=== PATIENT | female | born 1995 | race Caucasian/White ===

== ENCOUNTER 2020-01-23 19:38 | Emergency (ER) | payer OTHER, SELFPAY ==
[2019-03-30 17:04] VITALS: BMI 26.2
[2020-01-23 19:40] VITALS: BP 132/87; PULSE 80; RESP 16; RESP 17; TEMP 36.1; O2SAT 99; BMI 27.8
--- NOTE | 2020-01-23 20:09 | RAD_ITS ---
STUDY: X-RAY - LEFT FOOT CLINICAL: Female, 24 years old. INJURY WHILE WORKING OUT, PAIN AND SWELLING LATERAL ANKLE TECHNIQUE: 3 view(s) of the foot. COMPARISON: Ankle same day. FINDINGS: There is soft tissue edema lateral to the fibula. There is a well-corticated 1 mm bony density medial to the distal first metatarsal. There is flattening, sclerosis of the distal aspect of the second metatarsal. There are benign bone islands distal fourth and fifth metatarsal. 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
--- NOTE | 2020-01-23 20:15 | RAD_ITS ---
STUDY: X-RAY - LEFT ANKLE REASON FOR EXAM: Female, 24 years old. INJURY WHILE WORKING OUT, PAIN AND SWELLING LATERAL ANKLE TECHNIQUE: 3 view(s) of the ankle. COMPARISON: 04/29/2013. FINDINGS: Normal visualized distal tibia and fibula. Normal medial and lateral malleoli. Normal tibiotalar articulation and ankle mortise. Normal visualized talus and calcaneus. The visualized subtalar, talonavicular, calcaneocuboid and tarsal articulations are normal. There is significant soft tissue edema lateral to the fibula. The bone mineralization is preserved. There are no acute fractures. RAD/Ankle min 3 Views IMPRESSION: Significant soft tissue edema lateral to the fibula, no acute fractures Electronically Signed: Johann Hyman, at 20:30 EDT Tel , Service support ,
[2020-01-23] MEDS: Ibuprofen 600 MG Tablet PO (20:16)
--- NOTE | 2020-01-23 21:19 | ED.DCSUM_ITS ---
History of Present Illness Chief Complaint: Lower Extremity Injury Informant: Patient Occurred: Today Mechanism/Context: Trip Onset: Today Context: Sudden Onset Timing: Continuous Quality of Pain: Aching Associated Symptoms: Negative for: Parasthesia, Weakness, Loss of Funtion Narrative: Patient is a 24-year-old female with no significant past medical history presenting with left ankle injury. Patient was doing a home workout and when she went to grab something she actually tripped over a box and inverted her ankl e. She immediately had pain and swelling over the lateral aspect of her ankle. She did not try to walk on it. She came to the emergency room for further evaluation. She not take anything for pain prior to arrival. She denies any associated numbness or tingling. She denies any fall or head injury. She denies any other complaints at this time. Past Medical History - Allergies and Home Meds Allergies/Adverse Reactions: Allergies Penicillins [PCN] Allergy (Verified 01/23/20 19:38) Hives Primary Care Physician: Adrian Downing DO [Primary Care Provider] - Past Medical History: None Surgical History: noncontributory Smoking Status: Never smoker Review of Systems General: Denies: Chills, Fever, Sweats Eyes: Denies: Visual changes - bilaterally, Diplopia ENT: Denies: Rhinorrhea, Sore throat Cardiovascular: Denies: Chest pain, Palpitations Respiratory: Denies: Dyspnea, Cough, Dyspnea on exertion Gastrointestinal: Denies: Abdominal pain, Nausea, Vomiting, Diarrhea, Melena, Hematochezia Genitourinary: Denies: Dysuria, Hematuria, Frequency Musculoskeletal: Reports: Swelling - Left ankle, Extremity Pain - Left ankle. Denies: Back pain Skin: Denies: Rash, Wounds Neurological: Denies: Headache, Weakness, Numbness Physical Exam Vital Signs/Narrative: Vital Signs Temp Pulse Resp BP Pulse Ox 01/23/20 19:40 97.0 F L 80 16 132/87 H 99 Inital Vital Signs reviewed: Yes - Extremity Exam Left Femur: Negative for: Deformity, Edema, Limited ROM Left Knee: Negative for: Deformity, Edema, Limited ROM Left Tib Fib: - - No fibular head tenderness. Negative for: Deformity, Edema, Hematoma, Limited ROM Left Ankle: Edema, Limited ROM - Secondary to pain, - - Soft tissue swelling over the lateral malleolus with associated tenderness. No pinpoint bony tenderness bilaterally. No obvious deformity. Normal Jorge test. Negative for: Deformity, Hematoma Left Foot: - - No tenderness to palpation at the base of the fifth metatarsal. Negative for: Deformity, Edema, Limited ROM General: Well nourished, Well developed Head: Normocephalic, Atraumatic Eyes: Perrl, EOMI ENT: No Trauma, Moist Mucous Membranes Neck: Nontender, Full ROM Cardiovascular: Regular rate, Regular rhythm, No murmurs Respiratory: No distress, CTA bilaterally, Chest nontender Abdomen: Soft, Nontender, Nondistended, Normal bowel sounds Back: Nontender Skin: Normal color, No rash Neurological: Alert, Oriented x3, Cranial nerves II-XII grossly intact, Normal Strength, Normal Sensation Psychological: Normal affect Diagnostic/Tx/Re-eval Clinical Impression(s) from Imaging Studies Foot X-Ray 01/23/20 20:09 IMPRESSION: Soft tissue edema lateral to the fibula 1 mm bony density medial to the distal first metatarsal likely old trauma Flattening and sclerosis distal aspect of the second metatarsal, this is chronic and 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 She is associated soft tissue swelling. X-ray shows soft tissue swelling but no acute bony abnormality. There are some bony abnormalities noted on the medial aspect of the foot. Patient is not have any associated tenderness or known injury there. Patient is placed in an air splint. She is given Motrin for pain control. She is counseled to follow-up with her primary care doctor. She is weightbearing as tolerated. She is counseled on rice therapy. Patient is counseled on signs and symptoms requiring return to the emergency room. Patient verbalizes agreement and understand this plan. Patient discharged home in stable and improved condition. ED Disposition - Plan for ED Patient: Disposition: Home or Assisted Living Diagnosis: Left ankle sprain Instructions: ED Sprain Ankle Prescriptions: Ibuprofen [Motrin] 600 mg PO Q6H PRN PRN #20 tab PRN Reason: Pain/Inflammation Prescription Printed Referrals: Adrian Downing DO [Primary Care Provider] -
[2020-01-23 21:28] VITALS: PULSE 80; RESP 16; O2SAT 98
== END 2020-01-23 21:43 | disposition home or self-care (01) ==
PROVIDERS: Emergency Provider Emergency Medicine; PCP Student in an Organized Health Care Education/Training Program
DX: S93.402A Sprain of unspecified ligament of left ankle, initial encounter (principal); W22.8XXA Striking against or struck by other objects, initial encounter; Y93.A9 Activity, other involving cardiorespiratory exercise; Y92.009 Unspecified place in unspecified non-institutional (private) residence as the place of occurrence of the external cause; Y99.9 Unspecified external cause status; Z88.0 Allergy status to penicillin
CPT/HCPCS: 73610; 73630; 99283

== ENCOUNTER 2025-05-05 07:46 | Inpatient (IN) | payer BC, SELFPAY ==
[2025-05-05] VITALS (27 sets, daily range): BP systolic 121–139; BP diastolic 61–91; PULSE 86–110; RESP 16–18; TEMP 36.4–36.7; O2SAT 93–100; BMI 45.9
--- OUTSIDE RECORDS SUMMARY | 2025-05-05 07:13 | XMS RPT_ITS | CCD ---
Author Organization [facility] Inform ion Partnership [facility] Care Team Providers Care Audio/Video Engineer Name Role Phone Adrian Downing DO Primary Care Provider WIL GARNETT JR. Attending Unav ailable ADRIAN DOWNING Primary Care Unavailable Adrian Downing DO Primary Care Provider Donato DATAWAREHOUSE DEVELOPER.Janneth HENDERSON Unavailable Isabell DATAWAREHOUSE DEVELOPER.Ashleigh HENDERSON Unavailable Donato DATAWAREHOUSE DEVELOPER.REIMBURSEMENT DIRECTORJanneth Unavailable Ady DATAWAREHOUSE DEVELOPER.Keyla HENDERSON Unavailable ADRIAN DOWNING Primary Care Unavailable SUE ARECHIGA Attending Unavailable ADRIAN DOWNING Primary Care Unavailable BRITNEY VERGARA Attending Unavailable LEELEE, ADRIAN De Los Santos Primary Care Unavailable JASON, JEFF Referring Unavailable DOWNING, ADRIAN L Primary Care Unavailable JASON, JEFF Referring Unavailable GINA MUÑIZ Attending Unavailable DOWNING, ADRIAN Magali Primary Care Unavailable HAURY, JEFF Referring Unavailable GARETH SALEHA Attending Unavailable DOWNING, ADRIAN L Primary Care Unavailable WIL, KARMON Referring Unavailable DOWNING, ADRIAN L Primary Care Unavailable WIL, KARMON Referring Unavailable MARIANNA DE LA TORRE Attending Unavailable DOWNING, ADRIAN Magali Primary Care Unavailable WIL, KARMON Referring Unavailable DOWNING, ADRIAN L Primary Care Unavailable WIL, KARMON Referring Unavailable SUSAN, CLAUDE Attending Unavailable DOWNING, ADRIAN L Primary Care Unavailable WIL, KARMON Attending Unavailable DOWNING, ADRIAN L Primary Care Unavailable ADYKEYLA Attending Unavailable LEELEE, ADRIAN L Primary Care Unavailable GINA MUÑIZ Attending Unavailable LEELEE, ADRIAN L Primary Care Unavailable MICHEL MUÑIZNEY Referring Unavailable DOWNING, ADRIAN L Primary Care Unavailable GINA MUÑIZ Attending Unavailable DOWNINGADRIAN L Primary Care Unavailable JASON, JEFF Attending Unavailable DOWNING, ADRIAN L Primary Care Unavailable HAURY, JEFF Referring Unavailable DOWNING, ADRIAN L Primary Care Unavailable HAURY, JEFF Referring Unavailable GINA MUÑIZ Attending Unavailable DOWNING, ADRIAN L Primary Care Unavailable HACAYLA, JEFF Referring Unavailable DOWNING, ADRIAN L Primary Care Unavailable DOWNINGADRIAN Attending Unavailable DOWNING, ADRIAN L Primary Care Unavailable MARIANNA DE LA TORRE Attending Unavailable DOWNING, ADRIAN Magali Primary Care Unavailable SELF Referring Unavailable HAURY, JEFF Attending Unavailable DONWING, ADRIAN L Primary Care Unavailable HAURY, JEFF Referring Unavailable DOWNING, ADRIAN L Primary Care Unavailable MARIANNA DE LA TORRE Referring Unavailable DOWNING, ADRIAN De Los Santos Primary Care Unavailable MARIANNA DE LA TORRE Referring Unavailable BRITNEY VERGARA Attending Unavailable DOWNING, ADRIAN De Los Santos Primary Care Unavailable ADY KEYLA TORSTEN Referring Unavailable DOWNING, ADRIAN L Primary Care Unavailable GINA MUÑIZ Attending Unavailable DOWNING, ADRIAN L Primary Care Unavailable POOL SCHULTZ Referring Unavailable Allergies Allergy Classification Reported Allergen(s) Allergy Type Date of Onset Reaction(s) Facility (20 sources) Amoxicillin; Translations: [AMOXICILLIN] Drug Allergy 11-14-2006 [facility] Work Phone: (1 source) Penicillin; Translations: [PENICILLIN G] Drug Allergy 03-03-2022 [facility] (10 sources) Penicillins; Translations: [PENICILLINS] Drug Allergy 03-03-2022 [facility] (19 sources) Penicillins Drug Allergy 03-03-2022 [facility] Medications Current Medications Medication Drug Class(es) Dates Sig (Normalized) Sig (Original) acyclovir 800 mg oral tablet (20 sources) Herpesvirus Nucleoside Analog DNA Polymerase Inhibitor, Herpes Simplex Virus Nucleoside Analog DNA Polymerase Inhibitor, Herpes Zoster Virus Nucleoside Analog DNA Polymerase Inhibitor Start: 07-15-2024 take 1 tablet by mouth three times daily acyclovir (ZOVIRAX) 800 mg tablet Indications: Recurrent cold sores Take 1 tablet by mouth three times a day. Take at first signs of cold sore outbreak x 5-7 days. 30 tablet 2 07/15/2024 Active Start: 06-08-2024 End: 06-13-2024 take 1 tablet by mouth twice daily acyclovir (ZOVIRAX) 800 mg tablet Indications: Recurrent cold sores Take 1 tablet by mouth two times a day for 5 days. 10 tablet 3 06/08/2024 06/13/2024 Active Start: 09-02-2021 End: 06-08-2024 take 1 tablet by mouth three times daily acyclovir (ZOVIRAX) 800 mg tablet Indications: Recurrent cold sores Take 1 tablet by mouth three times daily. Take at first signs of cold sore outbreak x 5-7 days. 30 tablet 05/06/2023 06/08/2024 Discontinued Comment on above: Take 1 tablet by rodriguez th three times daily. Take at first signs of cold sore outbreak x 5-7 days. aspirin 81 mg delayed release oral tablet (20 sources) Platelet Aggregation Inhibitor, Nonsteroidal Anti-inflammatory Drug Start: 09-22-20 24 take 1 tablet by mouth once daily for obesity aspirin, enteric coated (ECOTRIN LOW STRENGTH) 81 mg EC tablet Indications: Encounter for supervision of high risk in first trimester, antepartum (HCC) , with uncertain dates in first trimester (HCC) , Obesity affecting in first trimester, unspecified obesity type (HCC) Take 1 tablet by mouth once daily. 90 tablet 3 09/22/2024 Active ondansetron 4 mg disintegrating oral tablet (20 sources) Serotonin-3 Receptor Antagonist Start: 09-06-20 take 1 tablet by mouth every eight hours as needed for nausea ondansetron orally disintegrating (ZOFRAN ODT) 4 mg disintegrating tablet Indications: Less than 8 weeks gestation of (HCC) Take 1 tablet by mouth every 8 hours as needed for nausea/vomiting. 20 tablet 1 09/06/2024 Active PNV no.95/ferrous fum/folic ac ( ORAL) (20 sources) PNV no.95/ferrou s fum/folic ac ( ORAL) Take by mouth. Active Completed/Discontinued Medications Medication Drug Class(es) Dates Sig (Normalized) Sig (Original) azithromycin 250 mg oral tablet (2 sources) Macrolide Antimicrobial Start: 03-27-2025 End: 04-04-2025 azithromycin (ZITHROMAX Z-JOSH) 250 mg tablet 2 tablets by mouth first day then 1 tablet the next 4 days 6 tablet 03/27/2025 04/04/2025 Discontinued dicyclomine hydrochloride 10 mg oral capsule (6 sources) Anticholinergic Start: 11-07-2020 take 1 capsule by mouth at bedtime dicyclomine (BENTYL) 10 mg capsule Take 1 capsule by mouth before meals and at bedtime. 60 capsule 5 11/07/2020 Active Comment on above: Take 1 capsule by mo ut before meals and at bedtime. 21 day ethinyl estradiol 0.039453 mg/hr / etonogestrel 0.005 mg/hr vaginal system (8 sources) Progestin, Estrogen Start: 12-27-2021 End: 05-06-2023 Etonogestrel-Ethi nyl Estradiol (NUVARING) 0.12-0.015 mg/24 hr vaginal ring Use 1 Each vaginally as directed. 1 Each 2 05/06/2023 Active Comment on above: Use 1 Each vaginally as directed. Use 1 Each vaginally as directed. INSERT ONE(1) RING VAGINALLY AND LEAVE IN PLACE FOR THREE WEEKS, THEN REMOVE FOR 1 WEEK. Ethinyl Estradiol / Ferrous fumarate / Norethindrone (11 sources) Estrogen Start: 11-19-2023 End: 09-22-2024 take 1 tablet by mouth once daily Norethindrn A-E Estradiol-Iron (SHANTE 24 FE) 1 mg-20 mcg (24)/75 mg (4) Take 1 tablet by mouth once daily. 90 tablet 3 11/19/2023 09/22/2024 Discontinued Start: 11-19-2023 take 1 tablet by rodriguez th once daily Norethindrn A-E Estradiol-Iron (SHANTE 24 FE) 1 mg-20 mcg (24)/75 mg (4) Take 1 tablet by mouth once daily. 90 tablet 3 11/19/2023 Active Comment on above: Take 1 tablet by rodriguez th once daily. Ethinyl Estradiol / norgestimate (1 source) Progestin, Estrogen Start: 1 End: 2 take 1 tablet by mouth once daily norgestimate 0.25 mg-ethinyl estradiol 35 mcg (SPRINTEC) 0.25-35 mg-mcg per tablet Indications: Excessive and frequent menstruation with irregular cycle Take 1 tablet by mouth once daily. Active pills only. Skip placebo week. New pack every 3 weeks. 112 tablet 0 10/01/2021 12/27/2021 Discontinued Comment on above: Take 1 tablet by rodriguez th once daily. Active pills only. Skip placebo week. New pack every 3 weeks. lansoprazole 30 mg delayed release oral capsule (5 sources) Proton Pump Inhibitor Start: 2 take 1 capsule by mouth once daily before breakfast lansoprazole (PREVACID) 30 mg capsule Indications: Epigastric abdominal pain Take 1 capsule by mouth daily before breakfast. 1/2 hr before meal. 90 capsule 1 06/06/2022 Active Comment on above: Take 1 capsule by mo uth daily before breakfast. 1/2 hr before meal. sucralfate 1000 mg oral tablet (5 sources) Aluminum Complex Start: 2 take 1 tablet by mouth at bedtime sucralfate (CARAFATE) 1 gram tablet Indications: Epigastric abdominal pain , Bloating Take 1 tablet by mouth before meals and at bedtime. 30 tablet 1 06/06/2022 Active Comment on above: Take 1 tablet by rodriguez th before meals and at bedtime. Problems Active Problems Problem Classification Problem Date Documented Da te Episodic/Chronic Abdominal pain (2 sources) Epigastric pain; Translations: [Epigastric pain] Episodic Nausea and vomiting (2 sources) Nausea with vomiting, unspecified; Translations: [Nausea with vomiting, unspecified] Onset: 11-29-2023 Episodic Other complications of (20 sources) Maternal obesity complicating , childbirth and the puerperium, antepartum; Translations: [Obesity complicating , first trimester] Onset: 09-22-2024 10-27-2024 Chronic Other complications of (2 sources) Obesity complicating , third trimester; Translations: [Obesity affecting in third trimester, unspecified obesity type (HCC)] Onset: 02-10-2025 Chronic Other complications of (1 source) Obesity complicating , second trimester; Translations: [Other obesity affecting in second trimester (HCC)] Onset: 02-10-2025 Chronic Other complications of (1 source) Obesity complicating , first trimester; Translations: [Obesity affecting in first trimester, unspecified obesity type] Onset: 09-22-2024 Chronic Other complications of (20 sources) High risk ; Translations: [Supervision of high risk , unspecified, first trimester] Onset: 09-22-2024 10-27-2024 Episodic Other complications of (4 sources) Excessive weight gain in , third trimester; Translations: [Edema or excessive weight gain in , without mention of hypertension, antepartum condition or complication] Onset: 04-27-2025 03-09-2025 Episodic Other complications of (3 sources) Uterine size for dates discrepancy; Translations: [Uterine size-date discrepancy, third trimester] 04-04-2025 Episodic Other complications of (2 sources) Supervision of high risk , unspecified, third trimester; Translations: [Encounter for supervision of high risk in third trimester, antepartum (HCC)] Onset: 02-24-2025 Episodic Other complications of (1 source) Uterine size-date discrepancy, third trimester; Translations: [Uterine size-date discrepancy, third trimester (HCC)] Onset: 04-20-2025 Episodic Other complications of (1 source) Supervision of high risk , unspecified, second trimester; Translations: [Supervision of high risk in second trimester (HCC)] Onset: 02-10-2025 Episodic Other gastrointestinal disorders (2 sources) Abdominal bloating; Translations: [Abdominal distension (gaseous)] Episodic Other gastrointestinal disorders (2 sources) Diarrhea, unspecified; Translations: [Diarrhea, unspecified] Onset: 11-29-2023 Episodic Other gastrointestinal disorders (1 source) Dysphagia; Translations: [Dysphagia, unspecified] 03-24-2025 Episodic Other gastrointestinal disorders (1 source) Dysphagia, unspecified; Translations: [Dysphagia, unspecified type] Onset: 03-24-2025 Episodic Other lower respiratory disease (2 sources) Cough; Translations: [Acute cough] 03-15-2025 Episodic Other nutritional; endocrine; and metabolic disorders (1 source) Unintentional weight gain; Translations: [Abnormal weight gain] 11-19-2023 Episodic Other screening for suspected conditions (not mental disorders or infectious disease) (8 sources) Cancer cervix screening status; Translations: [Encounter for screening for malignant neoplasm of cervix] Onset: 02-10-2025 11-19-2023 Episodic Other upper respiratory infections (3 sources) Sore throat symptom; Translations: [Acute pharyngitis, unspecified] Onset: 03-15-2025 03-15-2025 Episodic Residual codes; unclassified (1 source) First trimester ; Translations: [Less than 8 weeks gestation of ] 09-08-2024 Episodic Residual codes; unclassified (2 sources) Gestation period, 12 weeks; Translations: [12 weeks gestation of ] 10-27-2024 Episodic Residual codes; unclassified (1 source) Gestation period, 16 weeks; Translations: [16 weeks gestation of ] 11-24-2024 Episodic Residual codes; unclassified (2 sources) Gestation period, 19 weeks; Translations: [19 weeks gestation of ] 12-15-2024 Episodic Residual codes; unclassified (1 source) Gestation period, 23 weeks; Translations: [23 weeks gestation of ] 01-12-2025 Episodic Residual codes; unclassified (1 source) Gestation period, 28 weeks; Translations: [28 weeks gestation of ] 02-10-2025 Episodic Residual codes; unclassified (2 sources) Gestation period, 31 weeks; Translations: [31 weeks gestation of ] 03-09-2025 Episodic Residual codes; unclassified (1 source) Gestation period, 33 weeks; Translations: [33 weeks gestation of ] 03-23-2025 Episodic Residual codes; unclassified (1 source) Gestation period, 35 weeks; Translations: [35 weeks gestation of ] 04-04-2025 Episodic Residual codes; unclassified (1 source) Gestation period, 36 weeks; Translations: [36 weeks gestation of ] 04-12-2025 Episodic Residual codes; unclassified (2 sources) Gestation period, 37 weeks; Translations: [37 weeks gestation of ] 04-20-2025 Episodic Residual codes; unclassified (1 source) Gestation period, 38 weeks; Translations: [38 weeks gestation of ] 04-27-2025 Episodic Residual codes; unclassified (1 source) 39 weeks gestation of ; Translations: [39 weeks gestation of (HCC)] Onset: 05-01-2025 Episodic Residual codes; unclassified (1 source) 38 weeks gestation of ; Translations: [38 weeks gestation of (HCC)] Onset: 04-27-2025 Episodic Residual codes; unclassified (1 source) 37 weeks gestation of ; Translations: [37 weeks gestation of (HCC)] Onset: 04-20-2025 Episodic Residual codes; unclassified (1 source) 36 weeks gestation of ; Translations: [36 weeks gestation of (HCC)] Onset: 04-12-2025 Episodic Residual codes; unclassified (1 source) 35 weeks gestation of ; Translations: [35 weeks gestation of (HCC)] Onset: 04-04-2025 Episodic Residual codes; unclassified (1 source) 33 weeks gestation of ; Translations: [33 weeks gestation of (HCC)] Onset: 03-23-2025 Episodic Residual codes; unclassified (1 source) 31 weeks gestation of ; Translations: [31 weeks gestation of (HCC)] Onset: 03-09-2025 Episodic Residual codes; unclassified (1 source) 30 weeks gestation of ; Translations: [30 weeks gestation of (HCC)] Onset: 02-24-2025 Episodic Residual codes; unclassified (1 source) 28 weeks gestation of ; Translations: [28 weeks gestation of (HCC)] Onset: 02-10-2025 Episodic Residual codes; unclassified (1 source) 23 weeks gestation of ; Translations: [23 weeks gestation of (HCC)] Onset: 02-10-2025 Episodic Residual codes; unclassified (1 source) Gestation period, 39 weeks; Translations: [39 weeks gestation of ] 05-01-2025 Episodic Unclassified (20 sources) [facility] Education - COMMON Onset: 09-22-2024 09-22-2024 Unclassified (20 sources) Education - [place] Onset: 09-22-2024 09-22-2024 Unclassified (1 source) Acute cough; Translations: [Acute cough] Onset: 03-15-2025 Unclassified (1 source) Other obesity affecting in third trimester ([facility]); Translations: [Other obesity affecting in third trimester ([facility])] Onset: 02-10-2025 Unclassified (1 source) Other obesity affecting in second trimester ([facility]); Translations: [Other obesity affecting in second trimester ([facility])] Onset: 02-10-2025 Viral infection (4 sources) Recurrent herpes simplex labialis; Translations: [Herpesviral vesicular dermatitis] 05-06-2023 Episodic Past or Other Problems Problem Classification Problem Date Documented Da te Episodic/Chronic Allergic reactions (20 sources) Allergy to penicillin; Translations: [Allergy status to penicillin] Onset: 09-23-2024 09-23-2024 Episodic Menstrual disorders (20 sources) Break-through bleeding; Translations: [Excessive and frequent menstruation with irregular cycle] Onset: 07-12-2015 Resolved: 09-22-2024 Chronic Other complications of (20 sources) Vomiting of , unspecified; Translations: [Unspecified vomiting of , unspecified as to episode of care or not applicable] Onset: 09-22-2024 Resolved: 11-24-2024 09-22-2024 Episodic Other complications of (1 source) Supervision of high risk , unspecified, first trimester; Translations: [Encounter for supervision of high risk in first trimester, antepartum] Onset: 09-22-2024 Episodic Other and delivery including normal (20 sources) with uncertain dates; Translations: [Encounter for supervision of normal , unspecified, first trimester] Onset: 09-22-2024 Resolved: 02-10-2025 09-22-2024 Episodic Residual codes; unclassified (1 source) Gestation period, 7 weeks; Translations: [Less than 8 weeks gestation of ] 09-22-2024 Episodic Residual codes; unclassified (2 sources) Less than 8 weeks gestation of ; Translations: [7 weeks gestation of ] Onset: 09-06-2024 Episodic Unclassified (1 source) Excessive weight gain in , third trimester ([facility]) 03-23-2025 Results Test Name Value Interpretation Reference Range Facility URINE OB DIP B/Oon 5 Glucose Ql (U) Negative Neg mg/dL [facility] Interpretation and review of laboratory results Normal [facility] Protein.monoclonal (U) [Mass/Vol] Negative Neg mg/dL [facility] URINE OB DIP B/Oon 5 Glucose Ql (U) Negative Neg mg/dL [facility] Interpretation and review of laboratory results Normal [facility] Protein.monoclonal (U) [Mass/Vol] Negative Neg mg/dL [facility] Examination level ultrasound on 04-20-2025 [facility] Radiology Study observation (narrative) [facility] URINE OB DIP B/Oon 5 Glucose Ql (U) Negative Neg mg/dL [facility] Interpretation and review of laboratory results Normal [facility] Protein.monoclonal (U) [Mass/Vol] Negative Neg mg/dL [facility] ROUTINE, GROUP B ST REPTOCOCCUS BY PCRon 04-12-2025 ROUTINE, GROUP B STREPTOCOCCUS BY PCR Not detected Normal [facility] Comment on above: Performed By: #### G BPCR ####[facility] LABCLIA [id number] [address] [place] URINE OB DIP B/Oon Glucose Ql (U) Negative Neg mg/dL [facility] Protein.monoclonal (U) [Mass/Vol] Negative Neg mg/dL [facility] Bacteria Throat Culton 03-24 Bacteria identified Cx Nom (Throat) CULTURE, THROAT: No Streptococcus pyogenes (Group A streptococcus) isolated. Normal [facility] Comment on above: Performed By: #### 6 26-2 ####[facility] LABCLIA [id number] [address] [place] CBC W Auto Differential pane l (Bld)on 03-24-2025 Basophils (Bld) [#/Vol] 0.03 10*3/uL [facility] Basophils/100 WBC (Bld) 0.2 % [facility] Differential cell count method Nom (Bld) Auto [facility] Eosinophils (Bld) [#/Vol] 0.11 10*3/uL [facility] Eosinophils/100 WBC (Bld) 0.9 % [facility] Erythrocyte distribution width (RBC) [Ratio] 13.4 % 11.5 - 15.0 % [facility] Hematocrit (Bld) [Volume fraction] 34.6 % Low 36.0 - 46.0 % [facility] Hemoglobin (Bld) [Mass/Vol] 11 g/dL Low 11.5 - 15.5 g/dL [facility] Immature granulocytes (Bld) [#/Vol] 0.22 10*3/uL High [facility] Immature granulocytes/100 WBC (Bld) 1.8 % [facility] Interpretation and review of laboratory results Abnormal [facility] Lymphocytes (Bld) [#/Vol] 1.64 10*3/uL [facility] Lymphocytes/100 WBC (Bld) 13.1 % [facility] MCH (RBC) [Entitic mass] 28 pg 26.0 - 34.0 pg [facility] MCHC (RBC) [Mass/Vol] 31.8 g/dL 30.5 - 36.0 g/dL [facility] MCV (RBC) [Entitic vol] 88 fL 80.0 - 100.0 fL [facility] Monocytes (Bld) [#/Vol] 1.24 10*3/uL High NINF [facility] Monocytes/100 WBC (Bld) 9.9 % [facility] Neutrophils (Bld) [#/Vol] 9.3 10*3/uL High [facility] Neutrophils/100 WBC (Bld) 74.1 % [facility] Nucleated RBC (Bld) [#/Vol] NINF [facility] Nucleated RBC/100 WBC (Bld) [Ratio] 0 % /100 WBC [facility] Platelet mean volume (Bld) [Entitic vol] 10.6 fL 9.0 - 12.7 fL [facility] Platelets (Bld) [#/Vol] 332 10*3/uL [facility] RBC (Bld) [#/Vol] 3.93 10*6/uL 3.90 - 5.2 0 m/uL [facility] WBC (Bld) [#/Vol] 12.54 10*3/uL High [facility] Basophils (Bld) [#/Vol] 0.03 10*3/uL Normal <0.11 [facility] Comment on above: Order Comment: Speci men Type: BLOOD SPECIMENOrdering Facility: [facility] Address: [address] [place] [address] Performed By: #### 5 7021-8 ####[facility] LABCLIA [id number] [address] [place] [facility] Basophils/100 WBC (Bld) 0.2 % Normal [facility] Comment on above: Order Comment: Speci men Type: BLOOD SPECIMENOrdering Facility: [facility] Address: [address] [place] [address] Performed By: #### 5 7021-8 ####[facility] LABCLIA [id number] [address], [place] [address] [place] Differential cell count method Nom (Bld) Auto Normal [facility] Comment on above: Order Comment: Speci men Type: BLOOD SPECIMENOrdering Facility: [facility] Address: [address] [place] [address] Performed By: #### 5 7021-8 ####[facility] LABCLIA [id number] [address], [place] [address] [place] Eosinophils (Bld) [#/Vol] 0.11 10*3/uL Normal <0.46 [facility] Comment on above: Order Comment: Speci men Type: BLOOD SPECIMENOrdering Facility: [facility] Address: [address] [place] [address] Performed By: #### 5 7021-8 ####[facility] LABCLIA [id number] [place] [address] [place] Eosinophils/100 WBC (Bld) 0.9 % Normal [facility] Comment on above: Order Comment: Speci men Type: BLOOD SPECIMENOrdering Facility: [facility] Address: [address] [place] [address] Performed By: #### 5 7021-8 ####[facility] LABCLIA [id number] [place] [address] [place] Erythrocyte distribution width (RBC) [Ratio] 13.4 % Normal 11.5-15.0 [facility] Comment on above: Order Comment: Speci men Type: BLOOD SPECIMENOrdering Facility: [facility] Address: [address] [place] [address] Performed By: #### 5 7021-8 ####[facility] LABCLIA [id number] [place] [address] [place] Hematocrit (Bld) [Volume fraction] 34.6 % Low 36.0-46.0 [facility] Comment on above: Order Comment: Speci men Type: BLOOD SPECIMENOrdering Facility: [facility] Address: [address] [place] [address] Performed By: #### 5 7021-8 ####[facility] LABCLIA [id number] [place] [address] [place] Hemoglobin (Bld) [Mass/Vol] 11.0 g/dL Low 11.5-15.5 [facility] Comment on above: Order Comment: Speci men Type: BLOOD SPECIMENOrdering Facility: [facility] Address: [address] [place] [address] Performed By: #### 5 7021-8 ####[facility] LABIA [id number] [address], [place] [address] [place] Immature granulocytes (Bld) [#/Vol] 0.22 10*3/uL High <0.10 [facility] Comment on above: Order Comment: Speci men Type: BLOOD SPECIMENOrdering Facility: [facility] Address: [address] [place] [address] Performed By: #### 5 7021-8 ####[facility] LABIA [id number] [place] [address] [place] Immature granulocytes/100 WBC (Bld) 1.8 % Normal [facility] Comment on above: Order Comment: Speci men Type: BLOOD SPECIMENOrdering Facility: [facility] Address: [address] [place] [address] Performed By: #### 5 7021-8 ####[facility] LABCLIA [id number] [place] [id number] [place] Lymphocytes (Bld) [#/Vol] 1.64 10*3/uL Normal 1.00-4.00 [facility] Comment on above: Order Comment: Speci men Type: BLOOD SPECIMENOrdering Facility: [facility] Address: [address] [place] [address] Performed By: #### 5 7021-8 ####[facility] LABCLIA [id number] [place] [address] [place] Lymphocytes/100 WBC (Bld) 13.1 % Normal [facility] Comment on above: Order Comment: Speci men Type: BLOOD SPECIMENOrdering Facility: [facility] Address: [address] [place] [address] Performed By: #### 5 7021-8 ####[facility] LABIA [id number] [place] [address] [place] MCH (RBC) [Entitic mass] 28.0 pg Normal 26.0-34.0 [facility] Comment on above: Order Comment: Speci men Type: BLOOD SPECIMENOrdering Facility: [facility] Address: [address] [place] [address] Performed By: #### 5 7021-8 ####[facility] LABIA [id number] [place] [address] [place] MCHC (RBC) [Mass/Vol] 31.8 g/dL Normal 30.5-36.0 [facility] Comment on above: Order Comment: Speci men Type: BLOOD SPECIMENOrdering Facility: [facility] Address: [address] [place] [address] Performed By: #### 5 7021-8 ####[facility] LABIA [id number] [place] [address] [place] MCV (RBC) [Entitic vol] 88.0 fL Normal 80.0-100.0 [facility] Comment on above: Order Comment: Speci men Type: BLOOD SPECIMENOrdering Facility: [facility] Address: [address] [place] [address] Performed By: #### 5 7021-8 ####[facility] LABIA [id number] [place] [address] [place] Monocytes (Bld) [#/Vol] 1.24 10*3/uL High <0.87 [facility] Comment on above: Order Comment: Speci men Type: BLOOD SPECIMENOrdering Facility: [facility] Address: [address] [place] [address] Performed By: #### 5 7021-8 ####[facility] LABCLIA [id number] [place] [id number] [place] Monocytes/100 WBC (Bld) 9.9 % Normal [facility] Comment on above: Order Comment: Speci men Type: BLOOD SPECIMENOrdering Facility: [facility] Address: [address] [place] [address] Performed By: #### 5 7021-8 ####[facility] LABCLIA [id number] [place] [address] [place] Neutrophils (Bld) [#/Vol] 9.30 10*3/uL High 1.45-7.50 [facility] Comment on above: Order Comment: Speci men Type: BLOOD SPECIMENOrdering Facility: [facility] Address: [address] [place] [address] Performed By: #### 5 7021-8 ####[facility] LABCLIA [id number] [place] [address] [place] Neutrophils/100 WBC (Bld) 74.1 % Normal [facility] Comment on above: Order Comment: Speci men Type: BLOOD SPECIMENOrdering Facility: [facility] Address: [address] [place] [address] Performed By: #### 5 7021-8 ####[facility] LABCLIA [id number] [place] [id number] [place] Nucleated RBC (Bld) [#/Vol] 10*3/uL Normal <0.01 [facility] Comment on above: Order Comment: Speci men Type: BLOOD SPECIMENOrdering Facility: [facility] Address: [address] [place] [address] Performed By: #### 5 7021-8 ####[facility] LABCLIA [id number] [address] [place] [address] [place] Nucleated RBC/100 WBC (Bld) [Ratio] 0.0 /100 WBC Normal [facility] Comment on above: Order Comment: Speci men Type: BLOOD SPECIMENOrdering Facility: [facility] Address: [address] [place] [address] Performed By: #### 5 7021-8 ####[facility] LABCLIA [id number] [address] [place] [address] [place] Platelet mean volume (Bld) [Entitic vol] 10.6 fL Normal 9.0-12.7 [facility] Comment on above: Order Comment: Speci men Type: BLOOD SPECIMENOrdering Facility: [facility] Address: [address] [place] [address] Performed By: #### 5 7021-8 ####[facility] LABIA [id number] [address] [place], [place] [address] [place] Platelets (Bld) [#/Vol] 332 10*3/uL Normal 150-400 [facility] Comment on above: Order Comment: Speci men Type: BLOOD SPECIMENOrdering Facility: [facility] Address: [address] [place] [address] Performed By: #### 5 7021-8 ####[facility] LABIA [id number] [address] [place] [address] [place] RBC (Bld) [#/Vol] 3.93 10*6/uL Normal 3.90-5.20 [facility] Comment on above: Order Comment: Speci men Type: BLOOD SPECIMENOrdering Facility: [facility] Address: [address] [place] [address] Performed By: #### 5 7021-8 ####[facility] LABIA [id number] [address] [place] [address] [place] WBC (Bld) [#/Vol] 12.54 10*3/uL High 3.70-11.[address] [facility] Comment on above: Order Comment: Speci men Type: BLOOD SPECIMENOrdering Facility: [facility] Address: [address] [place] [address] Performed By: #### 5 7021-8 ####[facility] LABCLIA [id number] ADRIAN NARAYAN [id number] [place] [address] CNOVon 03-24-2025 CNOV Office Visit (FAMPWS ) ----- DIGNA SYKES ([id number]) 1995 F Date Time Provider Department 03/24/25 1:00 PM KEYLA GARSIA During your visit today, we recorded the following information about you: Pulse Respiration Blood pressure Weight 101/minute 12/minute 120/78 124.1 kg Keyla Garsia APRN.CNP 03/24/2025 5:39 PM Signed This is a 29 year old female who presents today with: Digna Delgadilloburak is a 29-year-old female, currently , presenting with a persistent sore throat. Encounter note 03/24: Your strep test was negative, and it's concerning that your sore throat is worsening. Since it's been 8 days and nothing seems to help, it would be a good idea to schedule an appointment to discuss this further. You can book a visit through [facility] or calling [phone] and we can address everything during that appointment. Nae James MA 03/24/25 8:29 AM Good morning, I came in to your office last Thursday for a cough and sore throat. The strep test came back negative. The cough has down but the sore throat has gotten worse and doesn?t seem to be improving. I?ve tried everything from allergy meds, pepcid (in case of silent reflux), and every natural remedy and nothing seems to help it. I talked to my OB yesterday and she said to send you a message. It?s going on 8 days with this severe sore throat and i?m not sure if i should continue to see if it improves or come back in. Thank you. HISTORY OF PRESENT ILLNESS: Sore Throat: - Persistent sore throat x8 days, initially localized to one side, now involving the entire throat with a tight sensation. - Describes pain as swallowing glass. - Aggravated by talking and swallowing. - Negative rapid strep test performed in-office. - No visible abnormalities in the throat upon self-examination. - Denies chest pain or dyspnea. - No known family history of thyroid issues. - Initially frequent cough , now reduced, worse with excessive talking or dry throat - Currently , due May 05. - Reports back pain, managed with behavioral health care manager. - Denies third trimester nausea. - Denies significant acid reflux, occasional use of Tums PRN. - Taking prevacid, tried pepcid for suspected silent reflux, with no improvement. - Denies SOB, except when walking up stairs. - No known family history of thyroid issues. Environmental Exposure: - Home renovation ongoing, with exposure to drywall and dust. - Using a humidifier at home. PAST MEDICAL HISTORY: PAST MEDICAL HISTORY Diagnosis Date Dysmenorrhea 07/12/2015 Family history of arrhythmia 04/18/[address] Loo NEGATIVE HISTORY OF 04/17/2011 normal color vision with uncertain dates in first trimester (HCC) 09/22/2024 September 22, 2024 POCUS not consistent with LMP. Confirm PAZ with NT. Jeff Oquendo APRN.REIMBURSEMENT DIRECTOR PAST SURGICAL HISTORY Procedure Laterality Date PAST SURGICAL HISTORY OF 05/2017 wisdom teeth extraction TONSILLECTOMY PRIMARY/SECONDARY Tonsillectomy ALLERGIES Amoxicillin and Penicillins MEDICATIONS Current Outpatient Medications Medication Sig aspirin, enteric coated (ECOTRIN LOW STRENGTH) 81 mg EC tablet Take 1 tablet by mouth once daily. PNV no.95/ferrous fum/folic ac ( ORAL) Take by mouth. ondansetron orally disintegrating (ZOFRAN ODT) 4 mg disintegrating tablet Take 1 tablet by mouth every 8 hours as needed for nausea/vomiting. acyclovir (ZOVIRAX) 800 mg tablet Take 1 tablet by mouth three times a day. Take at first signs of cold sore outbreak x 5-7 days. No current facility-administered medications for this visit. FAMILY HISTORY Problem Relation Age of Onset No Known Problems Mother Heart Father PVCs No Known Problems Sister No Known Problems Sister No Known Problems Brother Cancer Maternal Grandmother Pancreatic Heart Maternal Grandfather arrythmia--has defibrillator COPD Paternal Grandmother Emphysema Paternal Grandmother Heart Paternal Grandfather fast heart pacemaker Diabetes Paternal Grandfather Heart Maternal Uncle 46 congenital, CAD Alzheimer's Disease Other P Great-Uncle Social History Tobacco Use Smoking status: Never Smokeless tobacco: Never Vaping Use Vaping status: Never Used Substance Use Topics Alcohol use: Not Currently Drug use: No REVIEW OF SYSTEMS Ears/Nose/Mouth/Throat: (+) sore throat, (+) painful swallowing, (+) throat tightness, (+) excessive salivation Cardiovascular: (-) chest pain Respiratory: (+) cough, (-) shortness of breath Gastrointestinal: (-) heartburn, (-) nausea Musculoskeletal: (+) back pain EXAM: BP 120/78 (BP Site: Left Arm, BP Position: Sitting, BP Cuff Size: Large Adult) Pulse 101 Resp 12 Wt 124.1 kg (273 lb 9.6 oz) LMP 07/29/2024 SpO2 96% BMI 41.47 kg/m? PHYSICAL EXAM: General Appearance: Wel (more content not included)... Normal [facility] T3Free SerPl-mCncon 03-24-20 25 Free T3 [Mass/Vol] 2.9 pg/mL Normal 2.3-4.1 [facility] Comment on above: Order Comment: Keanu waldron Type: BLOOD SPECIMEN [facility] Address: [address] [place] [address] Performed By: #### 1 6128-1 #### [facility] CLIA [id number] [address] [place] [address] [place] T4 Free SerPl-mCncon 03-24-2 025 Free T4 [Mass/Vol] 0.5 ng/dL Low 0.9-1.7 [facility] Comment on above: Order Comment: Keanu waldron Type: BLOOD SPECIMEN [facility] Address: [address] [place] [address] Performed By: #### 1 6128-1 #### [facility] CLIA [id number] [address] [place] [address] [place] TSH SerPl-aCncon 03-24-2025 TSH Qn 1.590 m[IU]/L Normal 0.270-4.200 [facility] Comment on above: Order Comment: Keanu waldron Type: BLOOD SPECIMEN [facility] Address: [address] [place] [address] Result Comment: If t he patient is , TSH reference range varies by gestational period: First Trimester (weeks 9-12): 0.180-2.990 mIU/L Second Trimester: 0.110-3.980 mIU/L Third Trimester: 0.480-4.710 mIU/L Casey De Los Santos et al. A Practical Approach for the Verifications and Determination of Site- and Trimester-Specific Reference Intervals for Thyroid Function tests in . Thyroid, 2019:29:3:412-420. Thad E, et al. 2017 Guidelines of the [place] Thy[employer] for the Diagnosis and Management of Thyroid Disease during and the . Thyroid, 2017:27:3:315-389. Performed By: #### 1 6128-1 #### [facility] CLIA [id number] [address] [place] [address] [place] CNOVon 03-15-2025 CNOV Office Visit (AUREAWS ) ----- DIGNA SYKES ([id number]) 1995 F Date Time Provider Department 03/15/25 11:40 AM SUE ARECHIGA During your visit today, we recorded the following information about you: Temperature Pulse Respiration Blood pressure 98.3 degrees 114/minute 20/minute 118/76 Weight 123 kg Sue Arechiga APRN.SANTIAGO 03/15/2025 12:02 PM Signed 03/15/2025 Patient presents with: Cough: X3 weeks with congestion and sore throat that comes and goes Recording using ambient AI software for draft documentation of the visit was discussed with the patient/authorized medical device sales representative; all questions welcomed and answered. Patient/authorized medical device sales representative agreed to proceed SUBJECTIVE: This is a 29 year old that is here today for Above Complaints.. Cough: - Onset 3 weeks ago, initially presenting with headache and sore throat, followed by nasal congestion and cough. - Nasal congestion has resolved, but cough persists. - encouraged visit due to duration of symptoms. - Denies dyspnea or breathing difficulties. - Productive cough with white mucus, initially green. - Tried Mucinex for one week with no relief. - Denies smoking history or asthma. Sore Throat: - Intermittent sore throat, localized to one spot. - Pain varies, sometimes severe enough to cause discomfort when swallowing. - Pain is transient, disappearing and reappearing without a clear pattern. - Denies sinus pain or pressure through the ear. - Denies seasonal allergies, but speculates -related changes or environmental factors (e.g., wildfire smoke) may contribute. : - Currently . - Experiences typical -related heat sensations at night, but denies fevers or chills. - Denies nausea, vomiting, or diarrhea associated with current symptoms. - Expresses uncertainty about safe medications during . PAST MEDICAL HISTORY Diagnosis Date Dysmenorrhea 07/12/2015 Family history of arrhythmia 04/18/[address] Loo NEGATIVE HISTORY OF 04/17/2011 normal color vision with uncertain dates in first trimester (HCC) 09/22/2024 September 22, 2024 POCUS not consistent with LMP. Confirm PAZ with NT. Jeff Oquendo APRN.REIMBURSEMENT DIRECTOR ALLERGIES Amoxicillin and Penicillins MEDICATIONS Current Outpatient Medications Medication Sig aspirin, enteric coated (ECOTRIN LOW STRENGTH) 81 mg EC tablet Take 1 tablet by mouth once daily. PNV no.95/ferrous fum/folic ac ( ORAL) Take by mouth. ondansetron orally disintegrating (ZOFRAN ODT) 4 mg disintegrating tablet Take 1 tablet by mouth every 8 hours as needed for nausea/vomiting. acyclovir (ZOVIRAX) 800 mg tablet Take 1 tablet by mouth three times a day. Take at first signs of cold sore outbreak x 5-7 days. No current facility-administered medications for this visit. Medications and allergies reviewed by this provider. SOCIAL HISTORY Social History Tobacco Use Smoking status: Never Smokeless tobacco: Never Vaping Use Vaping status: Never Used Substance Use Topics Alcohol use: Not Currently Drug use: No REVIEW OF SYSTEMS All other reviewed and negative other than HPI. OBJECTIVE: BP 118/76 Pulse 114 Temp 36.8 ?C (98.3 ?F) Resp 20 Wt 123 kg (271 lb 3.2 oz) LMP 07/29/2024 SpO2 98% BMI 41.10 kg/m? . Vital signs reviewed by this provider. GENERAL: NAD, alert and oriented. SKIN: Unremarkable, no rash or skin lesions. HEAD: Normocephalic. EYES: conjunctiva clear. EARS: External ears normal, canals clear, TM's normal. NOSE/SINUSES: Nares normal. Septum midline. OROPHARYNX: Lips, mucosa, and tongue normal, good dentition. No oral lesions noted. No swelling noted. NECK: Supple, no lymphadenopathy LUNGS: Clear to auscultation bilaterally, no wheezes/rhonchi/rales. Dry cough. Able to speak in full sentences without difficulty HEART: Regular rate and rhythm, no murmurs. No ectopy. Depression Screening Never done Anxiety Screening Never done Covid-19 Vaccine( season) Never done Influenza Vaccine(Season Ended) due on 06/05/2025 Cervical Cancer Screening due on 11/19/2026 DTaP,Tdap,Td Vaccine(8 - Td or Tdap) due on 03/03/2032 Hepatitis B Vaccine Completed RSV Vaccine(No Doses Required) Completed Hepatitis C Screening Completed HIV Screening Completed 1. Sore throat (J02.9) 2. Acute cough (R05.1) - Onset of symptoms began approximately three weeks ago with headache and sore throat, followed by nasal congestion and cough. Sore throat is intermittent and localized, with episodes of pain during swallowing. - Lungs clear to auscultation; no evidence of pneumonia on physical exam. - Negative rapid strep test. - Educated on the potential for post-viral cough to persist for up to six weeks. - Recommended [id number] Robitussin (alcohol-free) for cough management. - Advise (more content not included)... Normal [facility] DIG[facility] SY[facility] ([id number]) 1995 F Date Time Provider Department 03/15/25 [facility] During your visit today, we recorded the following information about you: Starla eD Jesus RN 03/15/2025 9:52 AM Signed Patient calling in with request for evaluation of cough and cold sx's that she has had for 20 days. Pt states she is 33 weeks . Symptoms include productive cough, nasal congestion and sore throat. Denies fever, chills, sweats, SOB, wheezing, headache, earache, body aches, or N/V/D. No severe sx's. Appt made for today with available provider. Starla De Jesus RN Allergies As of Date: 03/15/2025 Noted Allergy Reaction AMOXICILLIN 11/14/2006 4 - Hives PENICILLINS 03/03/2022 4 - Hives Date Reviewed: 03/09/2025 Reviewed by: Toy Edgar MA - Fully Assessed Reason for Visit: Patient Update [1234] Prescriptions as of 03/15/2025 - aspirin, enteric coated (ECOTRIN LOW STRENGTH) 81 mg EC tablet Take 1 tablet by mouth once daily. - PNV no.95/ferrous fum/folic ac ( ORAL) Take by mouth. - ondansetron orally disintegrating (ZOFRAN ODT) 4 mg disintegrating tablet Take 1 tablet by mouth every 8 hours as needed for nausea/vomiting. - acyclovir (ZOVIRAX) 800 mg tablet Take 1 tablet by mouth three times a day. Take at first signs of cold sore outbreak x 5-7 days. Problem List As Of Date 03/15/2025 Noted Resolved Dysmenorrhea [N94.6] 07/12/2015 09/22/2024 Obesity affecting in third trimester *09/22/2024 with uncertain dates in first trimest*09/22/2024 02/10/2025 Nausea and vomiting during [O21.9] 09/22/2024 11/24/2024 Penicillin allergy [Z88.0] 09/23/2024 Encounter for supervision of high risk pregnanc*02/24/2025 Encounter Status:Closed by STARLA DE JESUS on 03/15/25 Normal [facility] Examination level ultrasound on 03-09-2025 [facility] Radiology Study observation (narrative) [facility] CBC W Auto Differential pane l (Bld)on 02-10-2025 Basophils (Bld) [#/Vol] 0.03 10*3/uL Normal <0.11 [facility] Comment on above: Order Comment: Speci men Type: BLOOD SPECIMEN [facility] Address: [address] [place] [address] Performed By: #### 5 7021-8 #### [facility] CLIA [id number] [address] [place] [address] [place] Basophils/100 WBC (Bld) 0.2 % Normal [facility] Comment on above: Order Comment: Speci men Type: BLOOD SPECIMEN [facility] Address: [address] [place] [address] Performed By: #### 5 7021-8 #### [facility] CLIA [id number] [address] [place] [address] [place] Differential cell count method Nom (Bld) Auto Normal [facility] Comment on above: Order Comment: Speci men Type: BLOOD SPECIMEN [facility] Address: [address] [place] [address] Performed By: #### 5 7021-8 #### [facility] CLIA [id number] [address] [place] [address] [place] Eosinophils (Bld) [#/Vol] 0.09 10*3/uL Normal <0.46 [facility] Comment on above: Order Comment: Speci men Type: BLOOD SPECIMEN [facility] Address: [address] [place] [address] Performed By: #### 5 7021-8 #### [facility] CLIA [id number] [address] [place] [address] [place] Eosinophils/100 WBC (Bld) 0.7 % Normal [facility] Comment on above: Order Comment: Speci men Type: BLOOD SPECIMEN [facility] Address: [address] [place] [address] Performed By: #### 5 7021-8 #### [facility] CLIA [id number] [address] [place] [address] [place] Erythrocyte distribution width (RBC) [Ratio] 13.2 % Normal 11.5-15.0 [facility] Comment on above: Order Comment: Speci men Type: BLOOD SPECIMEN [facility] Address: [address] [place] [address] Performed By: #### 5 7021-8 #### [facility] CLIA [id number] [address] [place] [address] [place] Hematocrit (Bld) [Volume fraction] 34.4 % Low 36.0-46.0 [facility] Comment on above: Order Comment: Speci men Type: BLOOD SPECIMEN [facility] Address: [address] [place] [address] Performed By: #### 5 7021-8 #### [facility] CLIA [id number] [address] [place] [address] [place] Hemoglobin (Bld) [Mass/Vol] 11.6 g/dL Normal 11.5-15.5 [facility] Comment on above: Order Comment: Speci men Type: BLOOD SPECIMEN [facility] Address: [address] [place] [address] Performed By: #### 5 7021-8 #### [facility] CLIA [id number] [address] [place] [address] [place] Immature granulocytes (Bld) [#/Vol] 0.15 10*3/uL High <0.10 [facility] Comment on above: Order Comment: Speci men Type: BLOOD SPECIMEN [facility] Address: [address] [place] [address] Performed By: #### 5 7021-8 #### [facility] CLIA [id number] [address] [place] [address] [place] Immature granulocytes/100 WBC (Bld) 1.1 % Normal [facility] Comment on above: Order Comment: Speci men Type: BLOOD SPECIMEN [facility]ing [facility]: [facility] Address: [address] [place] [address] Performed By: #### 5 7021-8 #### [facility] CLIA [id number] [address] [place] [address] [place] Lymphocytes (Bld) [#/Vol] 1.60 10*3/uL Normal 1.00-4.00 [facility] Comment on above: Order Comment: Speci men Type: BLOOD SPECIMEN [facility]ing [facility]: [facility] Address: [address] [place] [address] Performed By: #### 5 7021-8 #### [facility] CLIA [id number] [address] [place] [address] [place] Lymphocytes/100 WBC (Bld) 12.0 % Normal [facility] Comment on above: Order Comment: Speci men Type: BLOOD SPECIMEN [facility]ing Facility: [facility] Address: [address] [place] [address] Performed By: #### 5 7021-8 #### [facility] CLIA [id number] [address] [place] [address] [place] MCH (RBC) [Entitic mass] 30.3 pg Normal 26.0-34.0 [facility] Comment on above: Order Comment: Speci men Type: BLOOD SPECIMEN Ordering Facility: [facility] Address: [address] [place] [address] Performed By: #### 5 7021-8 #### [facility] CLIA [id number] [address] [place] [address] [place] MCHC (RBC) [Mass/Vol] 33.7 g/dL Normal 30.5-36.0 [facility] Comment on above: Order Comment: Speci men Type: BLOOD SPECIMEN Ordering Facility: [facility] Address: [address] [place] [address] Performed By: #### 5 7021-8 #### [facility] CLIA [id number] [address] [place] [address] [place] MCV (RBC) [Entitic vol] 89.8 fL Normal 80.0-100.0 [facility] Comment on above: Order Comment: Speci men Type: BLOOD SPECIMEN Ordering Facility: [facility] Address: [address] [place] [address] Performed By: #### 5 7021-8 #### [facility] BEACHIA [id number] [address] [place] [address] [place] Monocytes (Bld) [#/Vol] 1.03 10*3/uL High <0.87 [facility] Comment on above: Order Comment: Speci men Type: BLOOD SPECIMEN Ordering Facility: [facility] Address: [address] [place] [address] Performed By: #### 5 7021-8 #### [facility] CLIA [id number] [address] [place] [address] [place] Monocytes/100 WBC (Bld) 7.7 % Normal [facility] Comment on above: Order Comment: Speci men Type: BLOOD SPECIMEN Ordering Facility: [facility] Address: [address] [place] [address] Performed By: #### 5 7021-8 #### [facility] CLIA [id number] [address] [place] [address] [place] Neutrophils (Bld) [#/Vol] 10.44 10*3/uL High 1.45-7.50 [facility] Comment on above: Order Comment: Speci men Type: BLOOD SPECIMEN Ordering Facility: [facility] Address: [address] [place] [address] Performed By: #### 5 7021-8 #### [facility] CLIA [id number] [address] [place] [address] [place] Neutrophils/100 WBC (Bld) 78.3 % Normal [facility] Comment on above: Order Comment: Speci men Type: BLOOD SPECIMEN Ordering Facility: [facility] Address: [address] [place] [address] Performed By: #### 5 7021-8 #### [facility] CLIA [id number] [address] [place] [address] [place] Nucleated RBC (Bld) [#/Vol] 10*3/uL Normal <0.01 [facility] Comment on above: Order Comment: Speci men Type: BLOOD SPECIMEN Ordering Facility: [facility] Address: [address] [place] [address] Performed By: #### 5 7021-8 #### [facility] CLIA [id number] [address] [place] [address] [place] Nucleated RBC/100 WBC (Bld) [Ratio] 0.0 /100 WBC Normal [facility] Comment on above: Order Comment: Speci men Type: BLOOD SPECIMEN Ordering Facility: [facility] Address: [address] [place] [address] Performed By: #### 5 7021-8 #### [facility] CLIA [id number] [address] [place] [address] [place] Platelet mean volume (Bld) [Entitic vol] 10.1 fL Normal 9.0-12.7 [facility] Comment on above: Order Comment: Speci men Type: BLOOD SPECIMEN Ordering Facility: [facility] Address: [address] [place] [address] Performed By: #### 5 7021-8 #### [facility] CLIA [id number] [address] [place] [address] [place] Platelets (Bld) [#/Vol] 293 10*3/uL Normal 150-400 [facility] Comment on above: Order Comment: Speci men Type: BLOOD SPECIMEN Ordering Facility: [facility] Address: [address] [place] [address] Performed By: #### 5 7021-8 #### [facility] CLIA [id number] [address] [place] [address] [place] RBC (Bld) [#/Vol] 3.83 10*6/uL Low 3.90-5.20 [facility] Comment on above: Order Comment: Speci men Type: BLOOD SPECIMEN Ordering Facility: [facility] Address: [address] [place] [address] Performed By: #### 5 7021-8 #### [facility] CLIA [id number] [address] [place] [address] [place] WBC (Bld) [#/Vol] 13.34 10*3/uL High 3.70-11.[address] [facility] Comment on above: Order Comment: Speci men Type: BLOOD SPECIMEN Ordering Facility: [facility] Address: [address] [place] [address] Performed By: #### 5 7021-8 #### [facility] CLIA [id number] [address] [place] [address] [place] GESTATIONAL GLUCOSE SCREEN, 1-HOUR, 50 GRAM, NON-FASTINGon 02-10-2025 Glucose [Mass/Vol] 120 mg/dL Normal 74-134 [facility] Comment on above: Order Comment: Keanu waldron Type: BLOOD SPECIMENOrdering Facility: [facility] Address: [address] [place] [address] Result Comment: [facility] Congress of Obstetricians and Gynecologists (Nikolay/Crispin) guidelines state a gestational diabetes mellitus positive screen is made, in women not previously diagnosed with overt diabetes, when the 1 hr plasma glucose level is equal to or above 140 mg/dL. The [facility] [employer] [facility] [place] recommends a 135 mg/dL cutoff. Performed By: #### G LTGST ####[facility] [id number] [place] [address] [place] Reagin and Treponema pallidu m IgG and IgM [Interp]on 02-10-2025 T. pallidum IgG+IgM IA Ql (S) Non-Reactive Normal Nonreactive [facility] Comment on above: Order Comment: Keanu waldron Type: BLOOD SPECIMEN Ordering Facility: [facility] Address: [address] [place] [address] Performed By: #### 1 6128-1 #### [facility] CLIA [id number] [address] [place], [place] [address] [address] [place] Reagin+T pallidum IgG+IgM Se rPl-Impon 02-10-2025 Reagin and Treponema pallidum IgG and IgM [Interp] Cannot exclude recent Treponemal infection if specimen collected within 7-10 days after appearance of suspect lesions or 2-3 weeks after an exposure. Clinical correlation is required. Normal [facility] Comment on above: Order Comment: Keanu waldron Type: BLOOD SPECIMEN Ordering Facility: [facility] Address: [address] [place] [address] Performed By: #### 1 6128-1 #### [facility] CLIA [id number] [address] [facility] [address] [place] [facility] Examination level ultrasound on 12-15-2024 Indication Detailed anatomic survey Maternal obesity, BMI >30 Impression REMOTE READ The patient is referred for a detailed anatomic survey. - Single, live, intrauterine . - biometry is consistent with the established gestational age. - No malformations were visualized on a complete detailed anatomic survey. - The amniotic fluid volume is normal amount. - The placenta is anterior, fundal. - The Transabdominal cervical length measures 35.1 mm with no evidence of funneling or other dynamic changes. - Not all structural malformations can be detected by ultrasound examination. Recommendations Additional follow-up as clinically indicated. Maternal Assessment Height 173 cm Height (ft) 5 ft Height (in) 8 in Physical Exam Initial weight (lb) 228 lb Initial BMI 34.67 kg/m Maternal assessment other: 1 Para 0 Method Transabdominal ultrasound examination. View: Adequate visualization Jansen . Number of fetuses: 1 Dating LMP on: 07/29/2024 GA by LMP 19 w + 6 d PAZ by LMP: 05/05/2025 GA by prior assessment 19 w + 6 d PAZ by prior assessment: 05/05/2025 Previous Ultrasound on: 09/22/2024 Type of prior assessment: CRL U/S measurement at prior assessment date 13.2 mm GA by previous U/S 19 w + 4 d PAZ by previous Ultrasound: 05/07/2025 Ultrasound examination on: 12/15/2024 GA by U/S based upon: AC, BPD, Femur, HC GA by U/S 20 w + 1 d PAZ by U/S: 05/03/2025 Assigned: based on the LMP, selected on 10/27/2024 Assigned GA 19 w + 6 d Assigned PAZ: 05/05/2025 General Evaluation Cardiac activity present. FHR 138 bpm. movements: present. Presentation: cephalic Placenta: Placental site: anterior, fundal Umbilical cord: Cord vessels: 3 vessel cord Amniotic fluid: Amount of AF: normal amount. MVP 5.2 cm Growth Overview Exam date GA BPD (mm) HC (mm) AC (mm) FL (mm) HL (mm) EFW (g) 12/15/2024 19w 6d 49.4 88% 175.1 55% 149.2 55% 30.3 46% 30.1 56% 315 43% Biometry Standard BPD 49.4 mm 21w 0d 88% Hadlock OFD 60.3 mm 19w 4d 58% Nicolaides HC 175.1 mm 20w 0d 55% Jatin Cerebellum tr 20.7 mm 19w 5d 69% Hill Nuchal fold 4.1 mm AC 149.2 mm 20w 1d 55% Hadlock Femur 30.3 mm 19w 4d 46% Jatin Humerus 30.1 mm 19w 6d 56% Jatin EFW 315 g 19w 5d 43% Hadlock EFW (lb) 0 lb EFW (oz) 11 oz EFW by: Hadlock (HC-AC-FL) [employer]r 5.5 mm CM 4.7 mm 40% Nicolaides Extremities / Bony Struc FL / HC 0.17 6% Hadlock Other Structures FHR 138 bpm Anatomy Cranium: normal Lateral ventricles: normal Choroid plexus: normal Midline falx: normal Cavum septi pellucidi: normal Cerebellum: normal Cisterna magna: normal Head / Neck Vermis: normal Neck: normal Nuchal fold: normal Lips: normal Profile: normal Nose: normal Face Maxilla: normal Mandible: normal Orbits: normal Lens: normal 4-chamber view: normal RVOT view: normal LVOT view: normal 3-vessel view: normal 9-[id number]-lmolchq view: normal Heart / Thorax Situs: situs solitus (normal) Aortic arch view: normal SVC: normal IVC: normal Cardiac axis: normal Rt lung: normal Lt lung: normal Diaphragm: normal Cord insertion: normal Stomach: normal Kidneys: normal Bladder: normal Genitals: normal Abdomen Abdom. wall: normal Cervical spine: normal Thoracic spine: normal Lumbar spine: normal Sacral spine: normal Arms: normal Legs: normal Rt upper arm: normal Rt forearm: normal Rt hand: normal Rt fingers: normal Lt upper arm: normal Lt forearm: normal Lt hand: normal Lt fingers: normal Rt upper leg: normal Rt lower leg: normal Rt foot: normal Lt upper leg: normal Lt lower leg: normal Lt foot: normal sex: female Wants to know sex: yes Maternal Structures Uterus / Cervix Uterus: Visualized Cervix: Visualized Approach: Transabdominal Cervical length 35.1 mm Other: Patient declined transvaginal ultrasound for cervical length. Ovaries / Tubes / Adnexa Rt ovary: Not visualized Lt ovary: Visualized Performed By: Leonie Vargas RDMS, RVT Read By: Amy Pickard M.D. MATERNAL MEDICINE [facility] Radiology Study observation (narrative) [facility] Rubi 12-09-2024 CNPN Telephone (OBGYWM) ----- DIGNA SYKES ([id number]) 1995 F Date Time Provider Department 12/09/24 MARIANNA DE LA TORRE OBANAWDorie During your visit today, we recorded the following information about you: Britney Armstrong RN 12/09/2024 8:30 AM Signed Received breast pump RX from [employer]. To KJ to sign. TRISH Silva Trisha, RN 12/09/2024 2:31 PM Signed Order signed and faxed. Patti Jacinto RN Allergies As of Date: 12/09/2024 Noted Allergy Reaction AMOXICILLIN 11/14/2006 4 - Hives PENICILLINS 03/03/2022 4 - Hives Date Reviewed: 11/24/2024 Reviewed by: Toy Edgar MA - Fully Assessed Reason for Visit: Breast Pump [Other] Prescriptions as of 12/09/2024 - aspirin, enteric coated (ECOTRIN LOW STRENGTH) 81 mg EC tablet Take 1 tablet by mouth once daily. - PNV no.95/ferrous fum/folic ac ( ORAL) Take by mouth. - ondansetron orally disintegrating (ZOFRAN ODT) 4 mg disintegrating tablet Take 1 tablet by mouth every 8 hours as needed for nausea/vomiting. - acyclovir (ZOVIRAX) 800 mg tablet Take 1 tablet by mouth three times a day. Take at first signs of cold sore outbreak x 5-7 days. Problem List As Of Date 12/09/2024 Noted Resolved Dysmenorrhea [N94.6] 07/12/2015 09/22/2024 Obesity affecting in first trimester *09/22/2024 Encounter for supervision of high risk pregnanc*09/22/2024 with uncertain dates in first trimest*09/22/2024 Nausea and vomiting during [O21.9] 09/22/2024 11/24/2024 Penicillin allergy [Z88.0] 09/23/2024 Encounter Status:Closed by PATTI JACINTO on 12/09/24 Normal [facility] nuchal translucency me asured by USon 10-27-2024 Indication First trimester anatomic survey; Maternal obesity, BMI >30; Impression The patient is referred for a first trimester anatomy scan including nuchal translucency measurement as clinically indicated. - Single, live, intrauterine . - [place] rump length measurement is consistent with the established gestational age (LMP). - A qualitative screen of the nuchal translucency and other anatomic structures was unremarkable on a complete first trimester anatomic assessment. - Not all structural malformations can be detected by ultrasound examination. Recommendations - A standard anatomic survey at 16 weeks and a detailed exam at 20 weeks for increased risk. - Additional follow up as clinically indicated. Maternal Assessment Height 173 cm Height (ft) 5 ft Height (in) 8 in Physical Exam Initial weight (lb) 228 lb Initial BMI 34.67 kg/m Method Transabdominal ultrasound examination Jansen . Number of fetuses: 1 Dating LMP on: 07/29/2024 GA by LMP 12 w + 6 d PAZ by LMP: 05/05/2025 Previous Ultrasound on: 09/22/2024 Type of prior assessment: CRL U/S measurement at prior assessment date 13.2 mm GA by previous U/S 12 w + 4 d PAZ by previous Ultrasound: 05/07/2025 Ultrasound examination on: 10/27/2024 GA by U/S based upon: CRL GA by U/S 13 w + 2 d PAZ by U/S: 05/02/2025 Assigned: based on the LMP, selected on 10/27/2024 Assigned GA 12 w + 6 d Assigned PAZ: 05/05/2025 General Evaluation Cardiac activity present Placenta: anterior Cord vessels: 3 vessel cord, normal insertion Amniotic fluid: normal amount Biometry Standard FHR 157 bpm CRL 70.5 mm 13w 2d 71% Hadlock First Trimester Anatomy Calvarium: normal Falx cerebri: normal Choroid plexus: normal Profile: normal Nasal bone: normal Retronasal triangle: normal Maxilla: normal Mandible: normal Nuchal translucency: Unremarkable Situs: normal Cardiac position: normal Cardiac axis: normal 4-chamber view: normal 4-chamber view with color: normal 4-teqxyw-jarbepd view: normal Abdominal cord insertion: normal Stomach: normal Kidneys: normal Bladder: normal Color doppler of perivesical umbilical arteries: normal Vertebral alignment: normal Arms: normal Hands: normal Legs: normal Feet: normal Maternal Structures Uterus / Cervix Uterus: Visualized Ovaries / Tubes / Adnexa Rt ovary: Visualized Rt ovary D1 40 mm Rt ovary D2 21 mm Rt ovary D3 25 mm Rt ovary Vol 10.9 cm Rt ovarian corpus luteum: hemorrhagic Lt ovary: Visualized Lt ovary D1 46 mm Lt ovary D2 24 mm Lt ovary D3 21 mm Lt ovary Vol 11.8 cm Performed By: Leonie Ramesh RDMS Read By: Pool Schultz D.O. MATERNAL MEDICINE [facility] Radiology Study observation (narrative) [facility] CBC W Auto Differential pane l (Bld)on 10-13-2024 Basophils (Bld) [#/Vol] 0.04 10*3/uL Normal <0.11 [facility] Comment on above: Order Comment: Speci men Type: BLOOD SPECIMENOrdering Facility: [facility] Address: [address] [place] [address] Performed By: #### 5 7021-8 ####[facility] [id number] [place] [address] [place] Basophils/100 WBC (Bld) 0.4 % Normal [facility] Comment on above: Order Comment: Speci men Type: BLOOD SPECIMENOrdering Facility: [facility] Address: [address] [place] [address] Performed By: #### 5 7021-8 ####[facility] [id number] [place] [address] [place] Differential cell count method Nom (Bld) Auto Normal [facility] Comment on above: Order Comment: Speci men Type: BLOOD SPECIMENOrdering Facility: [facility] Address: [address] [place] [address] Performed By: #### 5 7021-8 ####[facility] CORNELIOMANASQUANTEOLIA [id number] [place] [address] [place] Eosinophils (Bld) [#/Vol] 0.07 10*3/uL Normal <0.46 [facility] Comment on above: Order Comment: Speci men Type: BLOOD SPECIMENOrdering Facility: [facility] Address: [address] [place] [address] Performed By: #### 5 7021-8 ####[facility] [id number] [place] [address] [place] Eosinophils/100 WBC (Bld) 0.8 % Normal [facility] Comment on above: Order Comment: Speci men Type: BLOOD SPECIMENOrdering Facility: [facility] Address: [address] [place] [address] Performed By: #### 5 7021-8 ####[facility] [id number] [place] [address] [place] Erythrocyte distribution width (RBC) [Ratio] 13.4 % Normal 11.5-15.0 [facility] Comment on above: Order Comment: Speci men Type: BLOOD SPECIMENOrdering Facility: [facility] Address: [address] [place] [address] Performed By: #### 5 7021-8 ####[facility]ENTERLIA [id number] [place] [address] [place] Hematocrit (Bld) [Volume fraction] 37.5 % Normal 36.0-46.0 [facility] Comment on above: Order Comment: Speci men Type: BLOOD SPECIMENOrdering Facility: [facility] Address: [address] [place] [address] Performed By: #### 5 7021-8 ####[facility] [id number] [place] [address] [place] Hemoglobin (Bld) [Mass/Vol] 12.8 g/dL Normal 11.5-15.5 [facility] Comment on above: Order Comment: Speci men Type: BLOOD SPECIMENOrdering Facility: [facility] Address: [address] [place] [address] Performed By: #### 5 7021-8 ####[facility] CENTERVASHTI [id number] [place] [address] [place] Immature granulocytes (Bld) [#/Vol] 0.06 10*3/uL Normal <0.10 [facility] Comment on above: Order Comment: Speci men Type: BLOOD SPECIMENOrdering Facility: [facility] Address: [address] [place] [address] Performed By: #### 5 7021-8 ####[facility] [id number] [place] [address] [place] Immature granulocytes/100 WBC (Bld) 0.7 % Normal [facility] Comment on above: Order Comment: Speci men Type: BLOOD SPECIMENOrdering Facility: [facility] Address: [address] [place] [address] Performed By: #### 5 7021-8 ####[facility] MED[facility] CENTERRENEEA [id number] [place] [address] [place] Lymphocytes (Bld) [#/Vol] 1.51 10*3/uL Normal 1.00-4.00 [facility] Comment on above: Order Comment: Speci men Type: BLOOD SPECIMENOrdering Facility: [facility] Address: [address] [place] [address] Performed By: #### 5 7021-8 ####[facility]ITAL[facility]CL[facility] [id number] [place] [address] [place] Lymphocytes/100 WBC (Bld) 16.8 % Normal [facility] Comment on above: Order Comment: Speci men Type: BLOOD SPECIMENOrdering Facility: [facility] Address: [address] [place] [address] Performed By: #### 5 7021-8 ####[facility]ITALNC[facility] [id number] [place] [address] [place] MCH (RBC) [Entitic mass] 30.8 pg Normal 26.0-34.0 [facility] Comment on above: Order Comment: Speci men Type: BLOOD SPECIMENOrdering Facility: [facility] Address: [address] [place] [address] Performed By: #### 5 7021-8 ####[facility] [id number] [place] [address] [place] MCHC (RBC) [Mass/Vol] 34.1 g/dL Normal 30.5-36.0 [facility] Comment on above: Order Comment: Speci men Type: BLOOD SPECIMENOrdering Facility: [facility] Address: [address] [place] [address] Performed By: #### 5 7021-8 ####[facility]ITALNC[facility] [id number] [place] [address] [place] MCV (RBC) [Entitic vol] 90.1 fL Normal 80.0-100.0 [facility] Comment on above: Order Comment: Speci men Type: BLOOD SPECIMENOrdering Facility: [facility] Address: [address] [place] [address] Performed By: #### 5 7021-8 ####[facility] [id number] [place] [address] [place] Monocytes (Bld) [#/Vol] 0.60 10*3/uL Normal <0.87 [facility] Comment on above: Order Comment: Speci men Type: BLOOD SPECIMENOrdering Facility: [facility] Address: [address] [place] [address] Performed By: #### 5 7021-8 ####[facility] ANGELWNCLIA [id number] [place] [address] [place] Monocytes/100 WBC (Bld) 6.7 % Normal [facility] Comment on above: Order Comment: Speci men Type: BLOOD SPECIMENOrdering Facility: [facility] Address: [address] [place] [address] Performed By: #### 5 7021-8 ####[facility]ITALTEOLIA [id number] [place] [address] [place] Neutrophils (Bld) [#/Vol] 6.71 10*3/uL Normal 1.45-7.50 [facility] Comment on above: Order Comment: Speci men Type: BLOOD SPECIMENOrdering Facility: [facility] Address: [address] [place] [address] Performed By: #### 5 7021-8 ####[facility]ITALNCLIA [id number] [place] [address] [place] Neutrophils/100 WBC (Bld) 74.6 % Normal [facility] Comment on above: Order Comment: Speci men Type: BLOOD SPECIMENOrdering Facility: [facility] Address: [address] [place] [address] Performed By: #### 5 7021-8 ####[facility] CORNELIOWNCLIA [id number] [place] [address] [place] Nucleated RBC (Bld) [#/Vol] 10*3/uL Normal <0.01 [facility] Comment on above: Order Comment: Speci men Type: BLOOD SPECIMENOrdering Facility: [facility] Address: [address] [place] [address] Performed By: #### 5 7021-8 ####[facility] [id number] [place] [address] [place] Nucleated RBC/100 WBC (Bld) [Ratio] 0.0 /100 WBC Normal [facility] Comment on above: Order Comment: Speci men Type: BLOOD SPECIMENOrdering Facility: [facility] Address: [address] [place] [address] Performed By: #### 5 7021-8 ####[facility] [id number] [place] [address] [place] Platelet mean volume (Bld) [Entitic vol] 9.9 fL Normal 9.0-12.7 [facility] Comment on above: Order Comment: Speci men Type: BLOOD SPECIMENOrdering Facility: [facility] Address: [address] [place] [address] Performed By: #### 5 7021-8 ####[facility] [id number] [place] [address] [place] Platelets (Bld) [#/Vol] 243 10*3/uL Normal 150-400 [facility] Comment on above: Order Comment: Speci men Type: BLOOD SPECIMENOrdering Facility: [facility] Address: [address] [place] [address] Performed By: #### 5 7021-8 ####[facility] [id number] [place] [address] [place] RBC (Bld) [#/Vol] 4.16 10*6/uL Normal 3.90-5.20 [facility] Comment on above: Order Comment: Speci men Type: BLOOD SPECIMENOrdering Facility: [facility] Address: [address] [place] [address] Performed By: #### 5 7021-8 ####[facility] MED[facility] CENTERLIA [id number] [place] [address] [place] WBC (Bld) [#/Vol] 8.99 10*3/uL Normal 3.70-11.00 [facility] Comment on above: Order Comment: Speci men Type: BLOOD SPECIMENOrdering Facility: [facility] Address: [address] [place] [address] Performed By: #### 5 7021-8 ####[facility] [id number] [place] [id number] [place] HBV surface Ag Ser Qlon 0 HBV surface Ag Ql (S) Negative Normal Negative [facility] Comment on above: Order Comment: Speci men Type: BLOOD SPECIMEN Ordering Facility: [facility] Address: [address] [place] [address] Performed By: #### 1 6128-1 #### [facility] CLIA [id number] [address] [place] [address] [place] HCV Ab Ser Qlon 10-13-2024 HCV Ab Ql (S) Negative Normal Negative [facility] Comment on above: Order Comment: Speci men Type: BLOOD SPECIMEN Ordering Facility: [facility] Address: [address] [place] [address] Result Comment: The result suggests no evidence of active infection with Hepatitis C virus. Should recent infection be suspected, repeat testing may be considered 4-6 weeks after this draw. Performed By: #### 1 6128-1 #### [facility] CLIA [id number] [address] [place] [address] [place] HIV 1+2 Ab IA Qlon HIV 1 and 2 Ab IA.rapid Nom (S/P/Bld) Normal [facility] Comment on above: Order Comment: Speci men Type: BLOOD SPECIMEN Ordering Facility: [facility] Address: [address] [place] [address] Result Comment: Test not indicated. Performed By: #### 1 6128-1 #### [facility] CLIA [id number] [address] [place] [address] [place] HIV 1+2 Ab+HIV1 p24 Ag IA Ql Non-Reactive Normal Nonreactive [facility] Comment on above: Order Comment: Speci men Type: BLOOD SPECIMEN Ordering Facility: [facility] Address: [address] [place] [address] Performed By: #### 1 6128-1 #### [facility] CLIA [id number] [address] [place] [address] [place] HIV immunoassay testing algorithm interpretation (S/P/Bld) [Interp] Normal [facility] Comment on above: Order Comment: Speci men Type: BLOOD SPECIMEN Ordering Facility: [facility] Address: [address] [place] [address] Result Comment: No e vidence of HIV-1 or HIV-2 infection. Should recent infection be suspected, repeat testing may be considered 2-3 weeks after this draw. [place] Rev. Code 3701.243(E): This information has been disclosed to you from confidential records protected from disclosure by state law. ???You shall make no further disclosure of this information without the specific, written, and informed release of the individual to whom it pertains or as otherwise permitted by state law. A general authorization for the release of medical or other information is not sufficient for the purpose of the release of HIV test results or diagnoses. Performed By: #### 1 6128-1 #### [facility] CLIA [id number] [address] [place] [address] [place] HbA1c (Bld)on 10-13-2024 Average glucose Estimated from glycated hemoglobin (Bld) [Mass/Vol] 94 mg/dL Normal [facility] Comment on above: Order Comment: Speci men Type: BLOOD SPECIMENOrdering Facility: [facility] Address: [address] [place] [address] Result Comment: eAG: (Estimated average glucose) is a calculated value from HgbA1c and is medical device sales representative of the average blood glucose level in the last 2-3 month period. Performed By: #### 5 5454-3 ####[facility] LABCLIA [id number] [place] [address] [place] HbA1c (Bld) [Mass fraction] 4.9 % Normal 4.3-5.6 [facility] Comment on above: Order Comment: Speci men Type: BLOOD SPECIMENOrdering Facility: [facility] Address: [address] [place] [address] Result Comment: Amer ican Diabetes Association guidelines indicate that patients with HgbA1c in the range 5.7-6.4% are at increased risk for development of diabetes, and intervention by lifestyle modification may be beneficial. HgbA1c greater or equal to 6.5% is considered diagnostic of diabetes. Performed By: #### 5 5454-3 ####[facility] LABCLIA [id number] [place] [address] [place] [id number] PLUSon 10-13-2024 Cell-free DNA./Cell-free DNA.total Dosage of chromosome-specific cfDNA (cfDNA) [Molar fraction] 14% Normal [facility] Comment on above: Order Comment: Speci men Type: BLOOD SPECIMENOrdering Facility: [facility] Address: [address] [place] [address] Performed By: #### M AT21 ####[facility] LABCLIA [id number] [place] [address] Chr 13+18+21+X+Y aneuploidy Dosage of chromosome-specific cfDNA Ql (cfDNA) Negative Normal [facility] Comment on above: Order Comment: Speci men Type: BLOOD SPECIMENOrdering Facility: [facility] Address: [address] [place] [address] Performed By: #### M AT21 ####[facility] LABCLIA [id number] [place] [address] Chr 21 trisomy Dosage of chromosome-specific cfDNA Ql (cfDNA) Negative Normal [facility] Comment on above: Order Comment: Speci men Type: BLOOD SPECIMENOrdering Facility: [facility] Address: [address] [place] [address] Performed By: #### M AT21 ####[facility] LABCLIA [id number] [place] [address] Chr X and Y aneuploidy risk Sequencing Ql (cfDNA) [Interp] Not detected Normal [facility] Comment on above: Order Comment: Speci men Type: BLOOD SPECIMENOrdering Facility: [facility] Address: [address] [place] [address] Result Comment: Not Detected Not Detected Performed By: #### M AT21 ####[facility] LABCLIA [id number] [place] [address] Citation Broderick (Reference lab test) Comment Normal [facility] Comment on above: Order Comment: Speci men Type: BLOOD SPECIMENOrdering Facility: [facility] Address: [address] [place] [address] Result Comment: 1. P meka PALENCIA, et al. Emelina Med. 2012;14(3):296-305. 2. Mone ONEAL, et al. Prenat Diag. 2013;33(6):591-597. 3. Parth C, et al. Clin Chem. 2015 Apr;61(4):608-616. 4. Karen PALENCIA, et al. Emelina Med. 2011;13(11):913-920. 5. ACOG/SMFM Practice Bulletin No. 226, Jul 2020. Performed By: #### M AT21 ####[facility] LABCLIA [id number] [place] [address] Gestational age Estimated from conception date Jansen Normal [facility] Comment on above: Order Comment: Speci men Type: BLOOD SPECIMENOrdering Facility: [facility] Address: [address] [place] [address] Performed By: #### M AT21 ####[facility] LABCLIA [id number] [place] [address] GESTATIONALAGE AGE > OR = 9W Yes Normal [facility] Comment on above: Order Comment: Speci men Type: BLOOD SPECIMENOrdering Facility: [facility] Address: [address] [place] [address] Performed By: #### M AT21 ####[facility] LABCLIA [id number] [place] [address] Laboratory comment Broderick (Report) Comment Normal [facility] Comment on above: Order Comment: Keanu waldron Type: BLOOD SPECIMENOrdering Facility: [facility] Address: [address] [place] [address] Result Comment: The MaterniT(R) 21 PLUS laboratory-developed test (LDT) analyzes circulating cell-free DNA from a maternal blood sample. This test is used for screening purposes and not diagnostic. Clinical correlation is recommended. Validation data on twin pregnancies is limited and the ability of this test to detect aneuploidy in higher multiple gestations has not yet been validated. Performed By: #### M AT21 ####[facility] LABMusicnotesIA [id number] [place] [id number] director of preclinical research name Nom (Provider) Comment Normal [facility] Comment on above: Order Comment: Keanu waldron Type: BLOOD SPECIMENOrdering Facility: [facility] Address: [address] [place] [address] Result Comment: This specimen showed an expected representation of chromosome 21, 18 and 13 material. Clinical correlation is suggested. Comment Cruz Medrano MD, PhD, Director, [employer] Performed By: #### M AT21 ####[facility] NeurAxonCLIA [id number] [place] [id number] LIMITATIONS OF THE TEST Comment Normal [facility] Comment on above: Order Comment: Keanu waldron Type: BLOOD SPECIMENOrdering Facility: [facility] Address: [address] [place] [address] Result Comment: Whil e the results of these tests are highly reliable, discordant results, including inaccurate sex prediction, may occur due to placental, maternal, or mosaicism or neoplasm; vanishing twin; prior maternal organ transplant; or other causes. These tests are screening tests and not diagnostic; they do not replace the accuracy and precision of diagnosis with CVS or amniocentesis. A patient with a positive test result should be referred for genetic counseling and offered invasive diagnosis for confirmation of test results.[5] The results of this testing, including the benefits and limitations, should be discussed with a qualified healthcare provider. management decisions, including termination of the , should not be based on the results of these tests alone. The healthcare provider is responsible for the use of this information in the management of their patient. Sex chromosomal aneuploidies are not reportable for known multiple gestations. A negative result does not ensure an unaffected nor does it exclude the possibility of other chromosomal abnormalities or defects which are not a part of these tests. An uninformative result may be reported, the causes of which may include, but are not limited to, insufficient sequencing coverage, noise or artifacts in the region, amplification or sequencing bias, or insufficient fraction. These tests are not intended to identify pregnancies at risk for neural tube defects or ventral wall defects. Testing for whole chromosome abnormalities (including sex chromosomes) and for subchromosomal abnormalities could lead to the potential discovery of both and maternal genomic abnormalities that could have major, minor, or no, clinical significance. Evaluating the significance of a positive or a non-reportable result may involve both invasive testing and additional studies on the mother. Such investigations may lead to a diagnosis of maternal chromosomal or subchromosomal abnormalities, which on occasion may be associated with benign or malignant maternal neoplasms. These tests may not accurately identify triploidy, balanced rearrangements, or the precise location of subchromosomal duplications or deletions; these may be detected by diagnosis with CVS or amniocentesis. The ability to report results may be impacted by maternal BMI, maternal weight, maternal systemic lupus erythematosus (SLE) and/or by certain pharmaceutical agents such as low molecular weight heparin (for example: Lovenox(R), Xaparin(R), Clexane(R) and Fragmin(R)). Performed By: #### M AT21 ####[facility] LABMusicnotesIA [id number] [place] [address] Monosomy X risk Dosage of chromosome-specific cfDNA Ql (Plasma cell-free+WBC DNA) [Interp] Not detected Normal [facility] Comment on above: Order Comment: Speci men Type: BLOOD SPECIMENOrdering Facility: [facility] Address: [address] [place], [place] [address] [address] Performed By: #### M AT21 ####[facility] LABCLIA [id number] [place] [address] NEGATIVE PREDICTIVE VALUE Note Normal [facility] Comment on above: Order Comment: Speci men Type: BLOOD SPECIMENOrdering Facility: [facility] Address: [address] [place] [address] Result Comment: The Negative Predictive Value (NPV) for trisomy 21, 18, and 13 is greater than 99%. The NPV for SCA and ESS cannot be calculated as SCA and ESS are only reported when an abnormality is detected. Performed By: #### M AT21 ####[facility] LABIA [id number] [place] [address] NOTE Comment Normal [facility] Comment on above: Order Comment: Speci men Type: BLOOD SPECIMENOrdering Facility: [facility] Address: [address] [place] [address] Result Comment: See Notes [employer] is a subsidiary of [employer], using the brand [employer]. This test was developed and its performance characteristics determined by [employer]. It has not been cleared or approved by the Food and Drug Administration. This laboratory is certified under the Clinical Laboratory Improvement Amendments (CLIA) as qualified to perform high complexity clinical laboratory testing and accredited by the College [employer] (CAP). If there is future clinical need for adding MaterniT GENOME testing, this specimen will be available until term. [facility] samples will not be retained beyond 60 days. [facility] patients will have to send a new sample for re-sequencing ([facility] Test Code: [id number]). Performed By: #### M AT21 ####[facility] LABIA [id number] [place] [address] PERFORMANCE CHARACTERISTICS Note Normal [facility] Comment on above: Order Comment: Speci men Type: BLOOD SPECIMENOrdering Facility: [facility] Address: [address] [place] [address] Result Comment: ! Sex ! Accuracy: 99.4% ! ! ! ! Region (associated syndrome) ! Est. Sens# ! Est. Spec ! ! ! ! Trisomy 21 (Down Syndrome) ! 99.1% ! 99.9% ! ! ! ! Trisomy 18 (Gilman Syndrome) ! >99.9% ! 99.6% ! ! ! ! Trisomy 13 (Patau Syndrome) ! 91.7% ! 99.7% ! ! ! ! Sex Chromosome Aneuploidies## ! 96.2% ! 99.7% ! ! ! * As reported in MultiplicomA database nstd37 [https://www.ncbi.nlm.nih.gov/dbvar/studies/nstd37/ ] # Estimated Sensitivity. Sensitivity estimated across the observed size distribution of each syndrome [per ISCA database nstd37] and across the range of fractions observed in routine clinical NIPT. Actual sensitivity can also be influenced by other factors such as the size of the event, total sequence counts, amplification bias, or sequence bias. ## Jansen gestation only. Performed By: #### M AT21 ####[facility] LABCLIA [id number] [place] [address] POSITIVE PREDICTIVE VALUE N/A Normal [facility] Comment on above: Order Comment: Speci men Type: BLOOD SPECIMENOrdering Facility: [facility] Address: [address] [place] [address] Performed By: #### M AT21 ####[facility] LABCLIA [id number] [place] [address] Reference Lab Test Method Comment Normal [facility] Comment on above: Order Comment: Speci men Type: BLOOD SPECIMENOrdering Facility: [facility] Address: [address] [place] [address] Result Comment: See Notes Circulating cell-free DNA was purified from the plasma component of maternal blood. The extracted DNA was then converted into a genomic DNA library for aneuploidy analysis of chromosomes 21, 18, and 13 via next generation sequencing.[1] Optional findings based on the test order include sex chromosome aneuploidy (SCA)[2], and enhanced sequencing series (ESS)[3], which will only be reported on as an additional finding when an abnormality is detected. SCA testing includes information on X and Y representation, while ESS testing includes deletions in selected regions (22q, 15q, 11q, 8q, 5p, 4p, 1p) and trisomy of chromosomes 16 and 22. Performed By: #### M AT21 ####[facility] LABCLIA [id number] [place] [address] Sex Dosage of chromosome-specific cfDNA Nom (cfDNA) Comment Normal [facility] Comment on above: Order Comment: Speci men Type: BLOOD SPECIMENOrdering Facility: [facility] Address: [address] [place] [address] Result Comment: Cons istent with Female Performed By: #### M AT21 ####[facility] LABCLIA [id number] [place] [address] Test performance information Broderick (Unsp spec) Comment Normal [facility] Comment on above: Order Comment: Keanu waldron Type: BLOOD SPECIMENOrdering Facility: [facility] Address: [address] [place] [address] Result Comment: The performance characteristics of the MaterniT(R) 21 PLUS laboratory-developed test (LDT) have been determined in a clinical validation study with women at increased risk for chromosomal aneuploidy.[1-4] Performed By: #### M AT21 ####[facility] LABCLIA [id number] [place] [address] Trisomy 13 risk Dosage of chromosome-specific cfDNA Ql (cfDNA) [Interp] Negative Normal [facility] Comment on above: Order Comment: Keanu waldron Type: BLOOD SPECIMENOrdering Facility: [facility] Address: [address] [place] [address] Performed By: #### M AT21 ####[facility] LABCLIA [id number] [place] [address] Trisomy 18 risk Dosage of chromosome-specific cfDNA Ql (Plasma cell-free+WBC DNA) [Interp] Negative Normal [facility] Comment on above: Order Comment: Keanu waldron Type: BLOOD SPECIMENOrdering Facility: [facility] Address: [address] [place] [address] Performed By: #### M AT21 ####[facility] LABCLIA [id number] [place] [address] RUBELLA IGG ANTIBODYon 10-13 RUBELLA IGG AB, QUAL Positive Normal Positive [facility] Comment on above: Order Comment: Keanu waldron Type: BLOOD SPECIMENOrdering Facility: [facility] Address: [address] [place] [address] Result Comment: The result suggests recent or past exposure to Rubella virus or history of Rubella vaccination. Positive result may also be seen due to presence of passively-transferred antibodies. Please correlate with patient's history. Performed By: #### R UBIGG ####[facility] LABCLIA [id number] [place] [address] [place] Reagin and Treponema pallidu m IgG and IgM [Interp]on 10-13-2024 T. pallidum IgG+IgM IA Ql (S) Non-Reactive Normal Nonreactive [facility] Comment on above: Order Comment: Speci men Type: BLOOD SPECIMENOrdering Facility: [facility] Address: [address] [place] [address] Performed By: #### 3 1201-7, 71860-5, 5195-3 ####[facility] LABCLIA [id number] [place] [address] [place] Reagin+T pallidum IgG+IgM Se rPl-Impon 10-13-2024 Reagin and Treponema pallidum IgG and IgM [Interp] Cannot exclude recent Treponemal infection if specimen collected within 7-10 days after appearance of suspect lesions or 2-3 weeks after an exposure. Clinical correlation is required. Normal [facility] Comment on above: Order Comment: Speci men Type: BLOOD SPECIMENOrdering Facility: [facility] Address: [address] [place] [address] Performed By: #### 3 1201-7, 04965-5, 5195-3 ####[facility] LABCLIA [id number] [place] [address] [place] TYPE + SCREEN PRENATALon ABO O Normal [facility] Comment on above: Order Comment: Speci men Type: BLOOD SPECIMENOrdering Facility: [facility] Address: [address] [place] [address] Performed By: #### T SPN ####[facility] BLOOD BANKCLIA [id number] [place] [address] [place] Rh Nom (Bld) Positive Normal [facility] Comment on above: Order Comment: Speci men Type: BLOOD SPECIMENOrdering Facility: [facility] Address: [address] [place] [address] Performed By: #### T SPN ####[facility] BLOOD BANKCLIA [id number] [place] [address] [place] TYPE AND SCREEN EXPIRATION 10/16/2024 23:59 Normal [facility] Comment on above: Order Comment: Speci men Type: BLOOD SPECIMENOrdering Facility: [facility] Address: [address] [place] [address] Performed By: #### T SPN ####[facility] BLOOD BANKCLIA [id number] [place] [address] [place] Bacteria Ur Culton 4 Bacteria identified Cx Nom (U) ORGANISM ID: 1 >=100,000 CFU/ml Normal urogenital joan Normal [facility] Comment on above: Performed By: #### 6 30-4 ####[facility] LABCLIA [id number] [place] [address] [place] C. trachomatis+N. gonorrhoea e DNA EVIE+probe Ql (Unsp spec)on 09-22-2024 C. trachomatis rRNA EVIE+probe Ql (Unsp spec) Not detected Normal Not detected [facility] Comment on above: Order Comment: Speci men Type: BLOOD SPECIMEN [facility] Address: [address] [place] [address] Performed By: #### 1 6128-1 #### [facility] CLIA [id number] [address] [place] [address] [place] N. gonorrhoeae rRNA EVIE+probe Ql (Unsp spec) Not detected Normal Not detected [facility] Comment on above: Order Comment: Speci men Type: BLOOD SPECIMEN [facility] Address: [address] [place] [address] Performed By: #### 1 6128-1 #### [facility] CLIA [id number] [address] [place] [address] [place] POC RELAY TESTER HELPER ULTRASOUNDon 09-22-20 Indication Viability; confirm cardiac activity Impression Single intrauterine gestational sac, CRL indicates discrepancy from clinical dates, PAZ 05/11/2025 based on today's ultrasound, cardiac activity is visualized Recommendations Follow up for NT scan if desired Method Transabdominal ultrasound examination, Transvaginal ultrasound examination. View: Adequate visualization Jansen . Number of embryos: 1 Dating LMP on: 07/29/2024 GA by LMP 7 w + 6 d PAZ by LMP: 05/05/2025 Ultrasound examination on: 09/22/2024 GA by U/S based upon: CRL GA by U/S 7 w + 0 d PAZ by U/S: 05/11/2025 Assigned: based on the LMP, selected on 09/22/2024 Assigned GA 7 w + 6 d Assigned PAZ: 05/05/2025 Biometry Standard FHR 151 bpm CRL 9.4 mm 7w 0d <1% Hadlock Assessment Gestational sac: visualized Location: intrauterine Yolk sac: visualized Embryo: visualized CRL 9.4 mm 7w 0d <1% Hadlock Cardiac activity: present FHR 151 bpm General Evaluation Cardiac activity present. FHR 151 bpm Performed By: Jeff Oquendo NP Read By: Jeff Oquendo NP MATERNAL MEDICINE [facility] Radiology Study observation (narrative) [facility] CNOVon 09-06-2024 CNOV Office Visit (FAMPWS ) ----- DIGNA RENDON ([id number]) 1995 F Date Time Provider Department 09/06/24 12:00 PM ADRIAN DOWNING FAMPWS During your visit today, we recorded the following information about you: Temperature Pulse Respiration Blood pressure 97.2 degrees 72/minute 12/minute 110/70 Weight Last Period 100 kg 07/29/24 Adrian Downing DO 09/08/2024 12:10 PM Signed CC: Digna Rendon is a 29 year old female who presents to the office for physical HPI: Overall she is doing very well She is scheduled to see OBGYN for a recently found . She thinks she is about 6 weeks at this time with her 1st . She was just recently this fall. She is taking vitamins No significant fatigue or nausea. Will be traveling to [place] for their [employer] in 1-2 weeks for 7-10 days PAST MEDICAL HISTORY Diagnosis Date Family history of arrhythmia 04/18/[address] Loo NEGATIVE HISTORY OF 04/17/11 normal color vision PAST SURGICAL HISTORY Procedure Laterality Date PAST SURGICAL HISTORY OF 05/2017 wisdom teeth extraction TONSILLECTOMY PRIMARY/SECONDARY Tonsillectomy Social History: Social History Tobacco Use Smoking status: Never Smokeless tobacco: Never Vaping Use Vaping status: Never Used Substance Use Topics Alcohol use: Not Currently Drug use: No FAMILY HISTORY Problem Relation Age of Onset No Known Problems Mother Heart Father PVCs No Known Problems Sister No Known Problems Sister No Known Problems Brother Cancer Maternal Grandmother Pancreatic Heart Maternal Grandfather arrythmia--has defibrillator COPD Paternal Grandmother Emphysema Paternal Grandmother Heart Paternal Grandfather fast heart pacemaker Diabetes Paternal Grandfather Heart Maternal Uncle 46 congenital, CAD Alzheimer's Disease Other P Great-Uncle Current Outpatient prescriptions: ondansetron orally disintegrating (ZOFRAN ODT) 4 mg disintegrating tablet Take 1 tablet by mouth every 8 hours as needed for nausea/vomiting. acyclovir (ZOVIRAX) 800 mg tablet Take 1 tablet by mouth three times a day. Take at first signs of cold sore outbreak x 5-7 days. Norethindrn A-E Estradiol-Iron (SHANTE 24 FE) 1 mg-20 mcg (24)/75 mg (4) Take 1 tablet by mouth once daily. Allergies: ALLERGIES Allergen Reactions Amoxicillin Hives ROS: See HIP PE: 09/06/24 1156 BP: 110/70 Pulse: 72 Resp: 12 Temp: 36.2 ?C (97.2 ?F) TempSrc: Left Tympanic Weight: 100 kg (220 lb 7.4 oz) Gen: AANDO, NAD, non-toxic appearing, Pleasant, cooperative HEENT: NT/AC, PERRLA, EOMs intact b/l, nares clear and patent b/l, pharynx without erythema, exudate or lesions. Uvula midline. EACs without erythema or debris. TMs pearly johansen with intact landmarks b/l. Neck: supple, No cervical LAD, no thyromegaly, no carotid bruits CV: RRR, normal S1 and S2, no murmurs, no gallops, no rubs, Pulses 2+ and symmetric in UE and LE b/l Lungs: normal respiratory effort, CTA b/l, no wheezing or rhonchi or rales Abd: soft, NT, ND, +BS, no hepatosplenomegaly MS: FROM all 4 extremities Neuro: CN II-XII intact b/l, strength 5/5 b/l UE and LE, DTRs 2/4 UE and LE, sensation intact. Skin: warm, dry, intact, No rashes or lesions on exposed skin. ASSESSMENT/PLAN: 1. Well adult exam - ICD9: V70.0, ICD10: Z00.00 (primary diagnosis) - Counseled on healthy diet and regular exercise 2. Less than 8 weeks gestation of - ICD9: V22.2, ICD10: Z3A.01 F/u with OBGYN for care/management Continue vitamin - ONDANSETRON 4 MG DISINTEGRATING TABLET Adrian Downing DO To ER if develops chest pain, shortness of breath, or severe worsening of symptoms. Discussed risks, benefits, alternatives, and potential side effects of medications. Patient expressed understanding and agreed with the plan. Adrian Downing DO [address] [place] [address] Adrian Downing DO 09/06/2024 12:43 PM Signed Vitamin C 500 mg up to 1000 mg a day Zinc 15 mg up to 25 mg a day Elderberry syrup - homemade Vitamin D3 [id number] international unit(s) a day Allergies As of Date: 09/06/2024 Noted Allergy Reaction AMOXICILLIN 11/14/2006 4 - Hives Date Reviewed: 09/06/2024 Reviewed by: Daisy Brink LPN - Fully Assessed Reason for Visit: Follow Up [171] Primary Visit Diagnosis:Well adult exam [Z00.00] Other Visit Diagnosis:Less than 8 weeks gestation of [Z3A.01] Order(s):ondansetron orally disintegrating (ZOFRAN ODT) 4 mg disintegrating tabletTake 1 tablet by mouth every 8 hours as needed for nausea/vomiting.Disp: 20 tabletRfl: 1 Prescriptions as of 09/08/2024 - ondansetron orally disintegrating (ZOFRAN ODT) 4 mg disintegrating tablet Take 1 tablet by mouth every 8 hours as needed for nausea/vomiti (more content not included)... Normal [facility] DIGNA RENDON ([id number]) 1995 F Date Time Provider Department 09/06/24 [facility] During your visit today, we recorded the following information about you: Daisy Brink LPN 09/06/2024 4:21 PM Signed [facility] I forgot to ask if i can take acloyvir (cold sores) While ? That was one of the reasons I needed an appointment today was to renew my prescription before our trip! I know sometimes travel can cause cold sores to pop up. Thanks again, it was good to see you today! Janneth Donato APRN.REIMBURSEMENT DIRECTOR 09/07/2024 6:14 PM Signed I would not recommend taking this medication while . The data is inconclusive but it does cross over to the placenta. If you develop a bad cold sore while , please let us know and we will weigh risk vs benefit then. Thank you, Janneth Donato APRN.Jazmyn Solis LPN 09/07/2024 6:22 PM Signed Spoke with pt gave information provided. Pt voices understanding. Allergies As of Date: 09/06/2024 Noted Allergy Reaction AMOXICILLIN 11/14/2006 4 - Hives Date Reviewed: 09/06/2024 Reviewed by: Daisy Brink LPN - Fully Assessed Prescriptions as of 09/07/2024 - ondansetron orally disintegrating (ZOFRAN ODT) 4 mg disintegrating tablet Take 1 tablet by mouth every 8 hours as needed for nausea/vomiting. - acyclovir (ZOVIRAX) 800 mg tablet Take 1 tablet by mouth three times a day. Take at first signs of cold sore outbreak x 5-7 days. - Norethindrn A-E Estradiol-Iron (SHANTE 24 FE) 1 mg-20 mcg (24)/75 mg (4) Take 1 tablet by mouth once daily. Problem List As Of Date 09/06/2024 Noted Resolved Excessive and frequent menstruation with irregu*07/12/2015 Dysmenorrhea [N94.6] 07/12/2015 Encounter Status:Closed by JAZMYN RAMIRES on 09/07/24 [facility] 06-08-2024 [facility] Telephone ([facility]) ----- DIGNA RENDON ([id number]) 1995 F Date Time Provider Department 06/08/24 GINA MUÑIZ [place] During your visit today, we recorded the following information about you: Leonie Hanson RN 06/08/2024 4:31 PM Signed Refill request received via [facility]. Patient last seen for annual exam on 11/19/23. TRISH Mills Emily, APRN.REIMBURSEMENT DIRECTOR 06/08/2024 4:46 PM Signed Please confirm with pharmacy that correct rx was sent. 800 mg of Acyclovir orally two times per day for 5 days. 3 refills provided. Jeff Oquendo APRN.Patti García RN 06/08/2024 5:01 PM Signed That dose was not escripted, only the original BID x20 days was, but then it was cancelled and pharmacy confirmed receipt of escript cancellation. Please file rx again. 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 - Norethindrn A-E Estradiol-Iron (SHANTE 24 FE) 1 mg-20 mcg (24)/75 mg (4) Take 1 tablet by mouth once daily. Problem List As Of Date 06/08/2024 Noted Resolved Excessive and frequent menstruation with irregu*07/12/2015 Dysmenorrhea [N94.6] 07/12/2015 Prescriptions ordered this encounter Disp Refills Start End ACYCLOVIR 800 MG TABLET 10 t* 3 06/08/2024 06/08/2024 Route: ORAL Sig: Take 1 tablet by mouth two times a day for 20 days. Take at first signs of cold sore outbreak x 5-7 days. Disc: Adjust Sig - Block E-Cancel ACYCLOVIR 800 MG TABLET 10 t* 3 06/09/2024 06/14/2024 Route: ORAL Sig: Take 1 tablet by mouth two times a day for 5 days. Medications Discontinued During This Encounter Prescriptions - acyclovir (ZOVIRAX) 800 mg tablet (Discontinued) Take 1 tablet by mouth three times daily. Take at first signs of cold sore outbreak x 5-7 days. - acyclovir (ZOVIRAX) 800 mg tablet (Discontinued) Take 1 tablet by mouth two times a day for 5 days. Encounter Status:Closed by JEFF OQUENDO on 06/08/24 Normal [facility] Comprehensive metabolic 2000 panelon 05-16-2024 Albumin [Mass/Vol] 4.6 g/dL Normal 3.9-4.9 [facility] Comment on above: Order Comment: Speci men Type: BLOOD SPECIMEN Ordering Facility: [facility] Address: [address] [place] [address] Performed By: #### 1 6128-1 #### [facility] CLIA [id number] [address] [place] [address] [place] ALP [Catalytic activity/Vol] 68 U/L Normal 34-123 [facility] Comment on above: Order Comment: Speci men Type: BLOOD SPECIMEN Ordering Facility: [facility] Address: [address] [place] [address] Performed By: #### 1 6128-1 #### [facility] CLIA [id number] [address] [place] [address] [place] ALT [Catalytic activity/Vol] 14 U/L Normal 7-38 [facility] Comment on above: Order Comment: Speci men Type: BLOOD SPECIMEN Ordering Facility: [facility] Address: [address] [place] [address] Performed By: #### 1 6128-1 #### [facility] CLIA [id number] [address] [place] [address] [place] Anion gap [Moles/Vol] 9 mmol/L Normal 8-15 [facility] Comment on above: Order Comment: Speci men Type: BLOOD SPECIMEN Ordering Facility: [facility] Address: [address] [place] [address] Performed By: #### 1 6128-1 #### [facility] CLIA [id number] [address] [place] [address] [place] AST [Catalytic activity/Vol] 18 U/L Normal 13-35 [facility] Comment on above: Order Comment: Speci men Type: BLOOD SPECIMEN Ordering Facility: [facility] Address: [address] [place] [address] Performed By: #### 1 6128-1 #### [facility] CLIA [id number] [address] [place] [address] [place] Bilirubin [Mass/Vol] 0.3 mg/dL Normal 0.2-1.3 [facility] Comment on above: Order Comment: Speci men Type: BLOOD SPECIMEN Ordering Facility: [facility] Address: [address] [place] [address] Performed By: #### 1 6128-1 #### [facility] CLIA [id number] [address] [place] [address] [place] Calcium [Mass/Vol] 9.4 mg/dL Normal 8.5-10.2 [facility] Comment on above: Order Comment: Speci men Type: BLOOD SPECIMEN Ordering Facility: [facility] Address: [address] [place] [address] Performed By: #### 1 6128-1 #### [facility] CLIA [id number] [address] [place] [address] [place] Chloride [Moles/Vol] 107 mmol/L Normal 98-107 [facility] Comment on above: Order Comment: Speci men Type: BLOOD SPECIMEN Ordering Facility: [facility] Address: [address] [place] [address] Performed By: #### 1 6128-1 #### [facility] CLIA [id number] [address] [place], [place] [id number] [place] CO2 [Moles/Vol] 23 mmol/L Normal 22-30 [facility] Comment on above: Order Comment: Speci men Type: BLOOD SPECIMEN Ordering Facility: [facility] Address: [address] [place] [address] Performed By: #### 1 6128-1 #### [facility] CLIA [id number] [address] [place] [address] [place] Creatinine [Mass/Vol] 0.68 mg/dL Normal 0.58-0.96 [facility] Comment on above: Order Comment: Speci men Type: BLOOD SPECIMEN Ordering Facility: [facility] Address: [address] [place] [address] Performed By: #### 1 6128-1 #### [facility] CLIA [id number] [address] [place] [address] [place] Creatinine and Glomerular filtration rate.predicted panel (S/P/Bld) 123 mL/min/1.73m??? Normal >=60 [facility] Comment on above: Order Comment: Speci men Type: BLOOD SPECIMEN Ordering Facility: [facility] Address: [address] [place] [address] Result Comment: Acacia mated Glomerular Filtration Rate (eGFR) is calculated using the 2020 CKD-EPI creatinine equation. This equation utilizes serum creatinine, sex, and age as parameters. The creatinine assay has traceable calibration to isotope dilution-mass spectrometry. Refer to KDIGO guidelines for clinical interpretation. In patients with unstable renal function, e.g. those with acute kidney injury, the eGFR may not accurately reflect actual GFR. Performed By: #### 1 6128-1 #### [facility] CLIA [id number] [address] [place] [address] [place] Glucose [Mass/Vol] 91 mg/dL Normal 74-99 [facility] Comment on above: Order Comment: Speci men Type: BLOOD SPECIMEN Ordering Facility: [facility] Address: [address] [place] [address] Result Comment: The [place] Diabetes Association (ADA) provides guidance for cutoff values for fasting glucose and random glucose. The ADA defines fasting as no caloric intake for at least 8 hours. Fasting plasma glucose results between 100 to 125 mg/dL indicate increased risk for diabetes (prediabetes). Fasting plasma glucose results greater than or equal to 126 mg/dL meet the criteria for diagnosis of diabetes. In the absence of unequivocal hyperglycemia, results should be confirmed by repeat testing. In a patient with classic symptoms of hyperglycemia or hyperglycemic crisis, random plasma glucose results greater than or equal to 200 mg/dL meet the criteria for diagnosis of diabetes. Reference: Standards of Medical Care in Diabetes 2016, [place] Diabetes Association. Diabetes Care. 2016.39(Suppl 1). Performed By: #### 1 6128-1 #### [facility] CLIA [id number] [address] [place] [address] [place] Potassium [Moles/Vol] 4.5 mmol/L Normal 3.7-5.1 [facility] Comment on above: Order Comment: Speci men Type: BLOOD SPECIMEN Ordering Facility: [facility] Address: [address] [place] [address] Performed By: #### 1 6128-1 #### [facility] CLIA [id number] [address] [place] [address] [place] Protein [Mass/Vol] 6.8 g/dL Normal 6.3-8.0 [facility] Comment on above: Order Comment: Speci men Type: BLOOD SPECIMEN Ordering Facility: [facility] Address: [address] [place] [address] Performed By: #### 1 6128-1 #### [facility] CLIA [id number] [address] [place] [address] [place] Sodium [Moles/Vol] 139 mmol/L Normal 136-144 [facility] Comment on above: Order Comment: Speci men Type: BLOOD SPECIMEN Ordering Facility: [facility] Address: [address] [place] [address] Performed By: #### 1 6128-1 #### [facility] CLIA [id number] [address] [place] [address] [place] Urea nitrogen [Mass/Vol] 9 mg/dL Normal 7-21 [facility] Comment on above: Order Comment: Speci men Type: BLOOD SPECIMEN Ordering Facility: [facility] Address: [address] [place] [address] Performed By: #### 1 6128-1 #### [facility] CLIA [id number] [address] [place] [address] [place] DHEA-S BLDon 05-16-2024 DHEA-S [Mass/Vol] 173.7 ug/dL Normal 98.8-340.0 [facility] Comment on above: Order Comment: Speci men Type: BLOOD SPECIMENOrdering Facility: [facility] Address: [address] [place] [address] Result Comment: Refe rence ranges are age and gender specific. For additional information, reference range tables can be found in the laboratory test directory. The normal values are based on the following source: Dehydroepiandrosterone sulfate (DHEA S) [package insert V 17.0 Spanish]. [facility], [place], [place]: May 2013. Performed By: #### 2 4331-1 ####[facility] [id number] [place] [address] [place] [facility] [id number] [place] [address] [place]#### DHEAS ####[facility]IA [id number] [place] [id number] [place] Glucose p fast SerPl-mCncon 05-16-2024 Glucose post fast [Mass/Vol] 88 mg/dL Normal 74-99 [facility] Comment on above: Order Comment: Speci men Type: BLOOD SPECIMENOrdering Facility: [facility] Address: [address] [place] [address] Result Comment: Amer [place] Diabetes Association guidelines state that a diabetes mellitus diagnosis is preliminarily made when the fasting plasma glucose meets or exceeds 126 mg/dL. In the absence of unequivocal hyperglycemia, results should be confirmed with repeat testing. Patients are at increased risk for diabetes mellitus (prediabetes) when the fasting glucose is 100 to 125 mg/dL. Performed By: #### 1 558-6 ####[facility] [id number] [place] [address] [place] HYDROXYPROGESTERONE-17on 17-HYDROXYPROGESTER ONE QUANTITATIVE BY HPLC-MS/MS, SERUM OR PLASMA 196.89 ng/dL Normal <=206.00 [facility] Comment on above: Order Comment: Speci men Type: BLOOD SPECIMENOrdering Facility: [facility] Address: [address] [place] [address] Result Comment: INTERPRETIVE INFORMATION for 17-Hydroxyprogesterone in females: Follicular 15 to 70 ng/dL Luteal 35 to 290 ng/dL REFERENCE INTERVAL: 17-Hydroxyprogesterone Qnt, HPLC-MS/MS Access complete set of age- and/or gender-specific reference intervals for this test in the [employer] Laboratory Test Directory ([employer]). This test was developed and its performance characteristics determined by [facility]. It has not been cleared or approved by the US Food and Drug Administration. This test was performed in a CLIA certified laboratory and is intended for clinical purposes. Performed By: [facility] [address] [place] [address] Scale Installer: Huang Porras MD, PhD CLIA Number: [id number] Performed By: #### H PROG ####[facility] [id number] [place] [address] Insulin SerPl-aCncon 024 Insulin Qn 12.7 u[IU]/mL Normal 3.0-25.0 [facility] Comment on above: Order Comment: Speci men Type: BLOOD SPECIMENOrdering Facility: [facility] Address: [address] [place] [address] Performed By: #### 2 0448-7 ####[facility] [id number] [place] [address] [place] Lipid 1996 panelon 4 Cholesterol [Mass/Vol] 161 mg/dL Normal <200 [facility] Comment on above: Order Comment: Speci men Type: BLOOD SPECIMENOrdering Facility: [facility] Address: [address] [place] [address] Result Comment: <200 mg/dL, Desirable 200-239 mg/dL, Borderline high >239 mg/dL, High Performed By: #### 2 4331-1 ####[facility] [id number] [address] [id number] [place] [address] [place]#### DHEAS ####[facility]CLIA [id number] [place] [address] [place] Cholesterol in HDL [Mass/Vol] 66 mg/dL Normal >39 [facility] Comment on above: Order Comment: Speci men Type: BLOOD SPECIMENOrdering Facility: [facility] Address: [address] [place] [address] Result Comment: 40-5 9 mg/dL, Acceptable >59 mg/dL, High: Negative risk factor for coronary heart disease <40 mg/dL, Low: Positive risk factor for coronary heart disease Performed By: #### 2 4331-1 ####[facility]IA [id number] [address] STATES [facility] [id number] [place] [address] [place]#### DHEAS ####[facility]CLIA [id number] [place] [address] [place] Cholesterol in LDL [Mass/Vol] 82 mg/dL Normal <100 [facility] Comment on above: Order Comment: Speci men Type: BLOOD SPECIMENOrdering Facility: [facility] Address: [address] [place] [address] Result Comment: <100 mg/dL, Optimal 100-129 mg/dL, Near optimal/above optimal 130-159 mg/dL, Borderline high 160-189 mg/dL, High >189 mg/dL, Very high Secondary prevention optimal LDL Cholesterol levels are recommended to be < 70 mg/dL Performed By: #### 2 4331-1 ####[facility]IA [id number] [address] [id number] [place] [address] [place]#### DHEAS ####[facility] [id number] [place] [address] [place] Cholesterol in LDL/Cholesterol in HDL [Mass ratio] 1.24 {ratio} Normal <2.54 [facility] Comment on above: Order Comment: Speci men Type: BLOOD SPECIMENOrdering Facility: [facility] Address: [address] [place] [address] Result Comment: Ricarda broderick: 1. National Cholesterol Education Program ATP III Guideline At-A-Glance Quick Desk Reference: National Heart, Lung, and Blood [place]. National Institutes of Health. 2001: NIH Publication No. 01-3305. 2. An International Atherosclerosis Society position paper: global recommendations for the management of dyslipidemia: executive summary, Atherosclerosis. 2014: 232(2):410-413. Performed By: #### 2 4331-1 ####[facility]IA [id number] [address] [id number] [place] [address] [place]#### DHEAS ####[facility]CLIA [id number] [place] [address] [place] Cholesterol in VLDL [Mass/Vol] 13 mg/dL Normal <30 [facility] Comment on above: Order Comment: Speci men Type: BLOOD SPECIMENOrdering Facility: [facility] Address: [address] [place] [id number] Performed By: #### 2 4331-1 ####[facility]CLIA [id number] [place] [id number] [place] [facility] [id number] [place] [address] [place]#### DHEAS ####[facility]CLIA [id number] [place] [id number] [place] Cholesterol non HDL [Mass/Vol] 95 mg/dL Normal <130 [facility] Comment on above: Order Comment: Speci men Type: BLOOD SPECIMENOrdering Facility: [facility] Address: [address] [place] [address] Result Comment: <130 mg/dL, Optimal 130-159 mg/dL, Near optimal/above optimal 160-189 mg/dL, Borderline high 190-219 mg/dL, High >219 mg/dL, Very high Secondary prevention optimal non HDL Cholesterol levels are recommended to be <100 mg/dL Performed By: #### 2 4331-1 ####[facility]CLIA [id number] [place] [address] [place] [facility] [id number] [place] [address] [place]#### DHEAS ####[facility]CLIA [id number] [place] [id number] [place] Cholesterol.total/C holesterol in HDL [Mass ratio] 2.44 {ratio} Normal <5.10 [facility] Comment on above: Order Comment: Speci men Type: BLOOD SPECIMENOrdering Facility: [facility] Address: [address] [place], [place] [address] Performed By: #### 2 4331-1 ####[facility] LABCLIA [id number] [place] [address] [place] [facility] [id number] [place] [address] [place]#### DHEAS ####[facility]CLIA [id number] [place] [address] [place] FASTING TIME 12 hrs Normal [facility] Comment on above: Order Comment: Speci men Type: BLOOD SPECIMENOrdering Facility: [facility] Address: [address] [place] [address] Performed By: #### 2 4331-1 ####[facility]CLIA [id number] [address] [place] [facility] [id number] [place] [address] [place]#### DHEAS ####[facility] LABCLIA [id number] [place] [address] [place] Triglyceride [Mass/Vol] 67 mg/dL Normal <150 [facility] Comment on above: Order Comment: Speci men Type: BLOOD SPECIMENOrdering Facility: [facility] Address: [address] [address] [address] [place], [place] [id number] Result Comment: <150 mg/dL, Normal 150-199 mg/dL, Borderline high 200-499 mg/dL, High >499 mg/dL, Very high Performed By: #### 2 4331-1 ####[facility] LABCLIA [id number] [place] [address] [place] [facility] [id number] [place] [address] [place]#### DHEAS ####[facility] LABCLIA [id number] [place] [address] [place] FEMALE PELVIS TRANSVAGon 11-10-2023 [facility] CBC W Auto Differential pane l (Bld)on 06-07-2022 Abs Immature Gran <0.10 k/uL [facility] Basophils (Bld) [#/Vol] 0.03 10*3/uL <0.11 k/uL [facility] Basophils/100 WBC (Bld) 0.5 % [facility] Differential cell count method Nom (Bld) Auto [facility] Eosinophils (Bld) [#/Vol] 0.07 10*3/uL <0.46 k/uL [facility] Eosinophils/100 WBC (Bld) 1.2 % [facility] Erythrocyte distribution width (RBC) [Ratio] 12.6 % 11.5 - 15.0 % [facility] Hematocrit (Bld) [Volume fraction] 42.1 % 36.0 - 46.0 % [facility] Hemoglobin (Bld) [Mass/Vol] 13.5 g/dL 11.5 - 15.5 g/dL [facility] Immature Gran % 0.3 % [facility] Lymphocytes (Bld) [#/Vol] 1.66 10*3/uL 1.00 - 4.00 k/uL [facility] Lymphocytes/100 WBC (Bld) 27.4 % [facility] MCH (RBC) [Entitic mass] 29.4 pg 26.0 - 34.0 pg [facility] MCHC (RBC) [Mass/Vol] 32.1 g/dL 30.5 - 36.0 g/dL [facility] MCV (RBC) [Entitic vol] 91.7 fL 80.0 - 100.0 fL [facility] Monocytes (Bld) [#/Vol] 0.48 10*3/uL <0.87 k/uL [facility] Monocytes/100 WBC (Bld) 7.9 % [facility] Neutrophils (Bld) [#/Vol] 3.79 10*3/uL 1.45 - 7.50 k/uL [facility] Neutrophils/100 WBC (Bld) 62.7 % [facility] Nucleated RBC (Bld) [#/Vol] <0.01 k/uL [facility] Nucleated RBC/100 WBC (Bld) [Ratio] 0.0 /100 WBC [facility] Platelet mean volume (Bld) [Entitic vol] 10.8 fL 9.0 - 12.7 fL [facility] Platelets (Bld) [#/Vol] 288 10*3/uL 150 - 400 k/uL [facility] RBC (Bld) [#/Vol] 4.59 10*6/uL 3.90 - 5.2 0 m/uL [facility] WBC (Bld) [#/Vol] 6.05 10*3/uL 3.70 - 11. 00 k/uL [facility] Comprehensive metabolic 2000 panelon 06-07-2022 Albumin [Mass/Vol] 4.5 g/dL 3.9 - 4.9 g/dL [facility] ALP [Catalytic activity/Vol] 47 U/L 34 - 123 U/L [facility] ALT [Catalytic activity/Vol] 12 U/L 7 - 38 U/L [facility] Anion gap [Moles/Vol] 12 mmol/L 9 - 18 mmol/L [facility] AST [Catalytic activity/Vol] 22 U/L 13 - 35 U/L [facility] Bilirubin [Mass/Vol] 0.3 mg/dL 0.2 - 1.3 mg/dL [facility] Calcium [Mass/Vol] 9.9 mg/dL 8.5 - 10. 2 mg/dL [facility] Chloride [Moles/Vol] 106 mmol/L High 97 - 105 mmol/L [facility] CO2 [Moles/Vol] 23 mmol/L 22 - 30 mmol/L [facility] Creatinine [Mass/Vol] 0.69 mg/dL 0.58 - 0.96 mg/dL [facility] Estimated Glomerular Filtration Rate 124 mL/min/1.73m >=60 mL/min/1.73m [facility] Glucose [Mass/Vol] 77 mg/dL 74 - 99 mg/dL [facility] Potassium [Moles/Vol] 4.4 mmol/L 3.7 - 5.1 mmol/L [facility] Protein [Mass/Vol] 7.4 g/dL 6.3 - 8.0 g/dL [facility] Sodium [Moles/Vol] 141 mmol/L 136 - 144 mmol/L [facility] Urea nitrogen [Mass/Vol] 10 mg/dL 7 - 21 mg/dL [facility] LIPASE BLDon 06-07-2022 Lipase [Catalytic activity/Vol] 38 U/L 16 - 61 U/L [facility] Vital Signs Date Time Vital Sign Value Performing Clinician Edwina mcleod 05-01-2025 09:59-0400 Body mass index (BMI) [Ratio] 44.04 kg/m2 Britney Vergara MD Work Phone: [facility] 05-01-2025 09:59-0400 Body weight 131.81 kg Britney Vergara MD Work Phone: [facility] 05-01-2025 09:59-0400 Diastolic blood pressure 78 mm[Hg] Britney Vergara MD Work Phone: [facility] 05-01-2025 09:59-0400 Systolic blood pressure 126 mm[Hg] Britney Vergara MD Work Phone: [facility] 04-27-2025 14:08-0400 Body mass index (BMI) [Ratio] 43.5 kg/m2 Claude Saleh MD Work Phone: [facility] 04-27-2025 14:08-0400 Body weight 130.18 kg Claude Saleh MD Work Phone: [facility] 04-27-2025 14:08-0400 Diastolic blood pressure 85 mm[Hg] Claude Saleh MD Work Phone: [facility] 04-27-2025 14:08-0400 Systolic blood pressure 124 mm[Hg] Claude Saleh MD Work Phone: [facility] 04-20-2025 11:07-0400 Body mass index (BMI) [Ratio] 42.86 kg/m2 Marianna De La Torre MD Work Phone: [facility] 04-20-2025 11:07-0400 Body weight 128.28 kg Marianna De La Torre MD Work Phone: [facility] 04-20-2025 11:07-0400 Diastolic blood pressure 82 mm[Hg] Marianna De La Torre MD Work Phone: [facility] 04-20-2025 11:07-0400 Systolic blood pressure 120 mm[Hg] Marianna De La Torre MD Work Phone: [facility] 04-12-2025 10:50-0400 Body mass index (BMI) [Ratio] 42.28 kg/m2 Britney Vergara MD Work Phone: [facility] 04-12-2025 10:50-0400 Body weight 126.55 kg Britney Vergara MD Work Phone: [facility] 04-12-2025 10:50-0400 Diastolic blood pressure 84 mm[Hg] Britney Vergara MD Work Phone: [facility] 04-12-2025 10:50-0400 Systolic blood pressure 122 mm[Hg] Britney Vergara MD Work Phone: [facility] 04-04-2025 14:02-0400 Body mass index (BMI) [Ratio] 41.83 kg/m2 Marianna De La Torre MD Work Phone: [facility] 04-04-2025 14:02-0400 Body weight 125.19 kg Marianna De La Torre MD Work Phone: [facility] 04-04-2025 14:02-0400 Diastolic blood pressure 72 mm[Hg] Marianna De La Torre MD Work Phone: [facility] 04-04-2025 14:02-0400 Systolic blood pressure 130 mm[Hg] Marianna De La Torre MD Work Phone: [facility] 03-24-2025 13:08-0400 Body mass index (BMI) [Ratio] 41.47 kg/m2 Keyla Ady DATAWAREHOUSE DEVELOPER.REIMBURSEMENT DIRECTOR Work Phone: [facility] 03-24-2025 13:08-0400 Body weight 124.1 kg Keyla Ady DATAWAREHOUSE DEVELOPER.REIMBURSEMENT DIRECTOR Work Phone: [facility] 03-24-2025 13:08-0400 Diastolic blood pressure 78 mm[Hg] Keyla Ady DATAWAREHOUSE DEVELOPER.REIMBURSEMENT DIRECTOR Work Phone: [facility] 03-24-2025 13:08-0400 Heart rate 101 /min Keyla Ady DATAWAREHOUSE DEVELOPER.REIMBURSEMENT DIRECTOR Work Phone: [facility] 03-24-2025 13:08-0400 Respiratory rate 12 /min Keyla Garsia DATAWAREHOUSE DEVELOPER.REIMBURSEMENT DIRECTOR Work Phone: [facility] 03-24-2025 13:08-0400 SaO2% (BldA) [Mass fraction] 96 % Keyla Garsia DATAWAREHOUSE DEVELOPER.REIMBURSEMENT DIRECTOR Work Phone: [facility] 03-24-2025 13:08-0400 Systolic blood pressure 120 mm[Hg] Keyla Garsia DATAWAREHOUSE DEVELOPER.REIMBURSEMENT DIRECTOR Work Phone: [facility] 03-23-2025 15:45-0400 Body mass index (BMI) [Ratio] 41.83 kg/m2 Marianna De La Torre MD Work Phone: [facility] 03-23-2025 15:45-0400 Body weight 125.19 kg Marianna De La Torre MD Work Phone: [facility] 03-23-2025 15:45-0400 Diastolic blood pressure 74 mm[Hg] Marianna De La Torre MD Work Phone: [facility] 03-23-2025 15:45-0400 Systolic blood pressure 126 mm[Hg] Marianna De La Torre MD Work Phone: [facility] 03-15-2025 11:31-0400 Body mass index (BMI) [Ratio] 41.1 kg/m2 Sue Arechiga DATAWAREHOUSE DEVELOPER.REIMBURSEMENT DIRECTOR Work Phone: [facility] 03-15-2025 11:31-0400 Body temperature 98.29 [degF] Sue Podlogar DATAWAREHOUSE DEVELOPER.REIMBURSEMENT DIRECTOR Work Phone: [facility] 03-15-2025 11:31-0400 Body weight 123.02 kg Sue Bowenslogar DATAWAREHOUSE DEVELOPER.REIMBURSEMENT DIRECTOR Work Phone: [facility] 03-15-2025 11:31-0400 Diastolic blood pressure 76 mm[Hg] Sue Podlogar DATAWAREHOUSE DEVELOPER.REIMBURSEMENT DIRECTOR Work Phone: [facility] 03-15-2025 11:31-0400 Heart rate 114 /min Sue Bowenslogar DATAWAREHOUSE DEVELOPER.REIMBURSEMENT DIRECTOR Work Phone: [facility] 03-15-2025 11:31-0400 Respiratory rate 20 /min Sue Podlogar DATAWAREHOUSE DEVELOPER.REIMBURSEMENT DIRECTOR Work Phone: [facility] 03-15-2025 11:31-0400 SaO2% (BldA) [Mass fraction] 98 % Sue Podlogar DATAWAREHOUSE DEVELOPER.REIMBURSEMENT DIRECTOR Work Phone: [facility] 03-15-2025 11:31-0400 Systolic blood pressure 118 mm[Hg] Sue Podlogar DATAWAREHOUSE DEVELOPER.REIMBURSEMENT DIRECTOR Work Phone: [facility] 03-09-2025 13:30-0400 Body mass index (BMI) [Ratio] 40.77 kg/m2 Gina Plotts DATAWAREHOUSE DEVELOPER.CNM Work Phone: [facility] 03-09-2025 13:30-0400 Body weight 122.02 kg Gina Plotts DATAWAREHOUSE DEVELOPER.CNM Work Phone: [facility] 03-09-2025 13:30-0400 Diastolic blood pressure 64 mm[Hg] Gina Plotts DATAWAREHOUSE DEVELOPER.CNM Work Phone: [facility] 03-09-2025 13:30-0400 Systolic blood pressure 118 mm[Hg] Gina Plotts DATAWAREHOUSE DEVELOPER.CNM Work Phone: [facility] 02-10-2025 15:11-0400 Body mass index (BMI) [Ratio] 39.25 kg/m2 Gina Plotts DATAWAREHOUSE DEVELOPER.CNM Work Phone: [facility] 02-10-2025 15:11-0400 Body weight 117.48 kg Gina Plotts DATAWAREHOUSE DEVELOPER.CNM Work Phone: [facility] 02-10-2025 15:11-0400 Diastolic blood pressure 76 mm[Hg] Gina Plotts DATAWAREHOUSE DEVELOPER.CNM Work Phone: [facility] 02-10-2025 15:11-0400 Systolic blood pressure 132 mm[Hg] Gina Plotts DATAWAREHOUSE DEVELOPER.CNM Work Phone: [facility] 01-12-2025 16:12-0400 Body mass index (BMI) [Ratio] 38.95 kg/m2 Gina Plotts DATAWAREHOUSE DEVELOPER.CNM Work Phone: [facility] 01-12-2025 16:12-0400 Body weight 116.57 kg Gina Plotts DATAWAREHOUSE DEVELOPER.CNM Work Phone: [facility] 01-12-2025 16:12-0400 Diastolic blood pressure 76 mm[Hg] Gina Plotts DATAWAREHOUSE DEVELOPER.CNM Work Phone: [facility] 01-12-2025 16:12-0400 Systolic blood pressure 118 mm[Hg] Gina Plotts DATAWAREHOUSE DEVELOPER.CNM Work Phone: [facility] 12-15-2024 15:07-0400 Body mass index (BMI) [Ratio] 37.59 kg/m2 Claude Saleh MD Work Phone: [facility] 12-15-2024 15:07-0400 Body weight 112.49 kg Claude Saleh MD Work Phone: [facility] 12-15-2024 15:07-0400 Diastolic blood pressure 80 mm[Hg] Claude Saleh MD Work Phone: [facility] 12-15-2024 15:07-0400 Systolic blood pressure 120 mm[Hg] Claude Saleh MD Work Phone: [facility] 11-24-2024 09:48-0500 Body mass index (BMI) [Ratio] 37.28 kg/m2 Gina Plotts DATAWAREHOUSE DEVELOPER.CNM Work Phone: [facility] 11-24-2024 09:48-0500 Body weight 111.58 kg Gina Plotts DATAWAREHOUSE DEVELOPER.CNM Work Phone: [facility] 11-24-2024 09:48-0500 Diastolic blood pressure 78 mm[Hg] Gina Plotts DATAWAREHOUSE DEVELOPER.CNM Work Phone: [facility] 11-24-2024 09:48-0500 Systolic blood pressure 124 mm[Hg] Gina Plotts DATAWAREHOUSE DEVELOPER.CNM Work Phone: [facility] 10-27-2024 10:54-0500 Body mass index (BMI) [Ratio] 35.16 kg/m2 Gina Plotts DATAWAREHOUSE DEVELOPER.CNM Work Phone: [facility] 10-27-2024 10:54-0500 Body weight 105.23 kg Gina Plotts DATAWAREHOUSE DEVELOPER.CNM Work Phone: [facility] 10-27-2024 10:54-0500 Diastolic blood pressure 60 mm[Hg] Gina Plotts DATAWAREHOUSE DEVELOPER.CNM Work Phone: [facility] 10-27-2024 10:54-0500 Systolic blood pressure 114 mm[Hg] Gina Plotts DATAWAREHOUSE DEVELOPER.CNM Work Phone: [facility] 09-22-2024 10:59-0500 Body height 173 cm Jeff Oquendo DATAWAREHOUSE DEVELOPER.REIMBURSEMENT DIRECTOR Work Phone: [facility] 09-22-2024 10:59-0500 Body mass index (BMI) [Ratio] 34.56 kg/m2 Jeff Hacayla DATAWAREHOUSE DEVELOPER.REIMBURSEMENT DIRECTOR Work Phone: [facility] 09-22-2024 10:59-0500 Body weight 103.42 kg Jeff Haury DATAWAREHOUSE DEVELOPER.REIMBURSEMENT DIRECTOR Work Phone: [facility] 09-22-2024 10:59-0500 Diastolic blood pressure 70 mm[Hg] Jeff Haury DATAWAREHOUSE DEVELOPER.REIMBURSEMENT DIRECTOR Work Phone: [facility] 09-22-2024 10:59-0500 Systolic blood pressure 112 mm[Hg] Jeff Hacayla DATAWAREHOUSE DEVELOPER.REIMBURSEMENT DIRECTOR Work Phone: [facility] 09-06-2024 11:56-0500 Body mass index (BMI) [Ratio] 34.53 kg/m2 Adrian Downing DO Work Phone: [facility] 09-06-2024 11:56-0500 Body temperature 97.2 [degF] Adrian Downing DO Work Phone: [facility] 09-06-2024 11:56-0500 Body weight 100 kg Adrian Downing DO Work Phone: [facility] 09-06-2024 11:56-0500 Diastolic blood pressure 70 mm[Hg] Adrian Downing DO Work Phone: [facility] 09-06-2024 11:56-0500 Heart rate 72 /min Adrian Downing DO Work Phone: [facility] 09-06-2024 11:56-0500 Respiratory rate 12 /min Adrian Downing DO Work Phone: [facility] 09-06-2024 11:56-0500 Systolic blood pressure 110 mm[Hg] Adrian Downing DO Work Phone: [facility] 11-19-2023 07:14-0500 Body height 170.2 cm Jeff Haury DATAWAREHOUSE DEVELOPER.REIMBURSEMENT DIRECTOR Work Phone: [facility] 11-19-2023 07:14-0500 Body weight 100.25 kg Jeff Elilngtonury DATAWAREHOUSE DEVELOPER.REIMBURSEMENT DIRECTOR Work Phone: [facility] 11-19-2023 07:14-0500 Diastolic blood pressure 64 mm[Hg] Jeff Haury DATAWAREHOUSE DEVELOPER.REIMBURSEMENT DIRECTOR Work Phone: [facility] 11-19-2023 07:14-0500 Systolic blood pressure 118 mm[Hg] Jeff Haury DATAWAREHOUSE DEVELOPER.REIMBURSEMENT DIRECTOR Work Phone: [facility] 06-06-2022 16:07-0400 Body temperature 98.2 [degF] Adrian Downing DO Work Phone: [facility] 06-06-2022 16:07-0400 Body weight 85.28 kg Adrian Downing DO Work Phone: [facility] 06-06-2022 16:07-0400 Diastolic blood pressure 60 mm[Hg] Adrian Downing DO Work Phone: [facility] 06-06-2022 16:07-0400 Heart rate 80 /min Adrian Downing DO Work Phone: [facility] 06-06-2022 16:07-0400 Respiratory rate 16 /min Adrian Downing DO Work Phone: [facility] 06-06-2022 16:07-0400 Systolic blood pressure 104 mm[Hg] Adrian Downing DO Work Phone: [facility] 12-27-2021 15:44-0400 Body weight 87.45 kg Marianna De La Torre MD Work Phone: [facility] 12-27-2021 15:44-0400 Diastolic blood pressure 72 mm[Hg] Marianna De La Torre MD Work Phone: [facility] 12-27-2021 15:44-0400 Systolic blood pressure 112 mm[Hg] Marianna De La Torre MD Work Phone: [facility] Encounters Encounter Date Encounter Type Care Provider Facility Start: 05-01-2025 End: 05-01-2025 Patient encounter procedure Britney Vergara MD Work Phone: OB/Gynecology Comment on above: 39 weeks gestation o f (HCC) (Primary Dx); Encounter for supervision of high risk in third trimester, antepartum (HCC) Start: 05-01-2025 End: 05-01-2025 ambulatory ADRIAN DOWNING Facility:[facility] Start: 04-27-2025 End: 04-27-2025 Patient encounter procedure Claude Saleh MD Work Phone: OB/Gynecology Comment on above: Encounter for superv ision of high risk in third trimester, antepartum (HCC) (Primary Dx); 38 weeks gestation of (HCC); Supervision of high risk in third trimester (HCC); Obesity affecting in third trimester, unspecified obesity type (HCC) Start: 04-27-2025 End: 04-27-2025 ambulatory ADRIAN DOWNING Facility:[facility] Start: 04-21-2025 End: 04-21-2025 ambulatory [facility] [place] Start: 04-21-2025 End: 04-21-2025 Patient encounter procedure [facility] [place] Comment on above: Population Health Na vigation Outreach ( to PCP/OB/) Start: 04-20-2025 End: 04-20-2025 Patient encounter procedure Marianna De La Torre MD Work Phone: OB/Gynecology Comment on above: 37 weeks gestation o f (HCC) (Primary Dx); Encounter for supervision of high risk in third trimester, antepartum (HCC); Supervision of high risk in third trimester (HCC); Obesity affecting in third trimester, unspecified obesity type (HCC) Encounter for ultras ound to check growth (HCC) (Primary Dx); Obesity affecting in third trimester, unspecified obesity type (HCC); Uterine size-date discrepancy, third trimester (HCC); 37 weeks gestation of (HCC) Start: 04-20-2025 End: 04-20-2025 ambulatory ADRIAN L DOWNING Facility:[facility] Start: 04-12-2025 End: 04-12-2025 Patient encounter procedure Britney Vergara MD Work Phone: OB/Gynecology Comment on above: 36 weeks gestation o f (HCC) (Primary Dx); Encounter for supervision of high risk in third trimester, antepartum (HCC); Supervision of high risk in third trimester (HCC) Start: 04-12-2025 End: 04-12-2025 ambulatory ADRIAN L DOWNING Facility:[facility] Start: 04-04-2025 End: 04-04-2025 Patient encounter procedure Marianna De La Torre MD Work Phone: OB/Gynecology Comment on above: Encounter for superv ision of high risk in third trimester, antepartum (HCC) (Primary Dx); Obesity affecting in third trimester, unspecified obesity type (HCC); Supervision of high risk in third trimester (HCC); 35 weeks gestation of (HCC); Uterine size-date discrepancy, third trimester (HCC) Start: 04-04-2025 End: 04-04-2025 ambulatory ADRIAN L DOWNING Facility:[facility] Start: 03-27-2025 End: 03-27-2025 Follow-up encounter Keyla Garsia APRN.CNP Work Phone: [facility] Start: 03-24-2025 End: 03-24-2025 Office outpatient visit 15 minutes Keyla Garsia APRN.CNP Work Phone: [facility] [place] Comment on above: Sore throat (Primary Dx); Acute cough; Dysphagia, unspecified type Start: 03-24-2025 End: 03-24-2025 ambulatory Adrian L Downing DO Work Phone: [facility] [place] Comment on above: Sore Throat Start: 03-23-2025 End: 03-23-2025 Patient encounter procedure Marianna De La Torre MD Work Phone: OB/Gynecology Comment on above: Supervision of high risk in third trimester (HCC) (Primary Dx); Obesity affecting in third trimester, unspecified obesity type (HCC); Excessive weight gain in , third trimester (HCC); 33 weeks gestation of (HCC) Start: 03-23-2025 End: 03-23-2025 ambulatory ADRIAN L DOWNING Facility:[facility] Start: 03-15-2025 End: 03-15-2025 Telephone encounter Adrian Buckneron DO Work Phone: [facility] [place] Comment on above: Patient Update Start: 03-15-2025 End: 03-15-2025 Patient encounter procedure Sue Arechiga APRN.CNP Work Phone: [facility] Comment on above: Sore throat (Primary Dx); Acute cough Start: 03-15-2025 End: 03-15-2025 ambulatory ADRIAN L DOWNING Facility:[facility] Start: 03-09-2025 End: 03-09-2025 Patient encounter procedure [employer] [facility] Comment on above: Encounter for ultras ound to check growth (HCC) (Primary Dx); Obesity affecting in third trimester, unspecified obesity type (HCC); Excessive weight gain in , third trimester (HCC); 31 weeks gestation of (HCC) Obesity affecting pr egnancy in third trimester, unspecified obesity type (HCC) (Primary Dx); Penicillin allergy; Excessive weight gain in , third trimester (HCC); Supervision of high risk in third trimester (HCC); 31 weeks gestation of (HCC) Start: 03-09-2025 End: 03-09-2025 ambulatory ADRIAN L DOWNING Facility:[facility] Start: 02-24-2025 End: 02-24-2025 ambulatory ADRIAN L DOWNING Facility:[facility] Start: 02-10-2025 End: 02-10-2025 Patient encounter procedure Gina Annedemario DATAWAREHOUSE DEVELOPER.SWETA Work Phone: OB/Gynecology Comment on above: Supervision of high risk in third trimester (HCC) (Primary Dx); Other obesity affecting in third trimester (HCC); 28 weeks gestation of (HCC) Start: 02-10-2025 End: 02-10-2025 ambulatory ADRIAN L DOWNING Facility:[facility] Start: 02-10-2025 End: 04-12-2025 Follow-up encounter Gina Muñiz DATAWAREHOUSE DEVELOPER.SWETA Work Phone: OB/Gynecology Start: 01-12-2025 End: 01-12-2025 ambulatory ADRIAN VAUGHNRISON Facility:[facility] Start: 01-12-2025 End: 01-12-2025 Patient encounter procedure Gina Muñiz DATAWAREHOUSE DEVELOPER.SWETA Work Phone: OB/Gynecology Comment on above: Supervision of high risk in second trimester (HCC) (Primary Dx); Other obesity affecting in second trimester (HCC); 23 weeks gestation of (HCC); Screening for diabetes mellitus Start: 12-16-2024 End: 02-15-2025 Follow-up encounter Claude Saleh MD Work Phone: OB/Gynecology Start: 12-15-2024 End: 12-15-2024 ambulatory ADRIAN VAUGHNRISON Facility:[facility] Start: 12-15-2024 End: 12-15-2024 Patient encounter procedure [employer] [facility] Comment on above: Encounter for anatomic survey (Primary Dx); Obesity affecting in first trimester, unspecified obesity type; 19 weeks gestation of Other obesity affect ing in second trimester (Primary Dx); 19 weeks gestation of ; Supervision of high risk in second trimester Start: 12-09-2024 End: 12-09-2024 Telephone encounter Marianna De La Torre MD Work Phone: OB/Gynecology Comment on above: Breast Pump Start: 11-24-2024 End: 11-24-2024 ambulatory ADRIAN L DOWNING Facility:[facility] Start: 11-24-2024 End: 11-24-2024 Patient encounter procedure Gina Muñiz DATAWAREHOUSE DEVELOPER.CNM Work Phone: OB/Gynecology Comment on above: 16 weeks gestation o f (Primary Dx); Supervision of high risk in second trimester; Other obesity affecting in second trimester Start: 11-23-2024 End: 11-24-2024 ambulatory Adrian Downing DO Work Phone: [facility] [place] Comment on above: Skin Lesion Start: 10-27-2024 End: 10-27-2024 ambulatory ADRIAN VAUGHNRISON Facility:[facility] Start: 10-27-2024 End: 10-27-2024 Patient encounter procedure [employer] [facility] Comment on above: Obesity affecting pr egnancy in first trimester, unspecified obesity type (Primary Dx); Encounter for supervision of high risk in first trimester, antepartum; 12 weeks gestation of ; Encounter for screening of mother 12 weeks gestation o f (Primary Dx); Obesity affecting in first trimester, unspecified obesity type; Encounter for supervision of high risk in first trimester, antepartum Start: 10-13-2024 End: 10-13-2024 ambulatory ADRIAN DOWNING Facility:[facility] Start: 10-03-2024 End: 10-03-2024 ambulatory Jeff Oquendo APRN.REIMBURSEMENT DIRECTOR Work Phone: OB/Gynecology Comment on above: NIPT test Start: 09-22-2024 End: 09-22-2024 ambulatory ADRIAN DOWNING Facility:[facility] Start: 09-22-2024 End: 09-22-2024 Patient encounter procedure Jeff Oquendo APRN.REIMBURSEMENT DIRECTOR Work Phone: OB/Gynecology Comment on above: Encounter for superv ision of high risk in first trimester, antepartum (Primary Dx); 7 weeks gestation of ; with uncertain dates in first trimester; Obesity affecting in first trimester, unspecified obesity type; Nausea and vomiting during Start: 09-06-2024 End: 09-07-2024 Telephone encounter Adrian Downing DO Work Phone: [facility] Start: 09-06-2024 End: 09-06-2024 Patient encounter procedure Adrian Downing DO Work Phone: [facility] [place] Comment on above: Well adult exam (Lexi carpio Dx); Less than 8 weeks gestation of Start: 09-06-2024 End: 09-06-2024 Patient encounter status Adrian Downing DO Work Phone: [facility] Start: 09-06-2024 End: 09-06-2024 ambulatory ADRIAN DOWNING Facility:[facility] Start: 09-06-2024 Encounter for yaritza l adult medical examination without abnormal findings ADRIAN DOWNING [facility] Start: 07-15-2024 End: 07-15-2024 Refill Adrian Downing DO Work Phone: [facility] [place] Comment on above: Refill Request Start: 07-14-2024 End: 07-15-2024 ambulatory Adrian Downing DO Work Phone: [facility] Comment on above: Acyclovir (cold sore s) Start: 06-08-2024 End: 06-08-2024 Refill Jeff Oquendo APRN.REIMBURSEMENT DIRECTOR Work Phone: OB/Gynecology Comment on above: Refill Request Recurrent cold sores Start: 05-16-2024 End: 05-16-2024 ambulatory ADRIAN DOWNING Facility:[facility] Start: 05-12-2024 ambulatory Jeff CALLE RN.REIMBURSEMENT DIRECTOR Work Phone: OB/Gynecology Comment on above: Question Start: 03-02-2024 ambulatory Jeff CALLE RN.REIMBURSEMENT DIRECTOR Work Phone: OB/Gynecology Comment on above: Menses Start: 03-02-2024 E-mail encounter fro m caregiver Jeff Oquendo APRN.REIMBURSEMENT DIRECTOR Work Phone: OB/Gynecology Start: 11-29-2023 End: 11-30-2023 Emergency department patient visit WIL GARNETT [facility] Start: 11-19-2023 End: 11-19-2023 Patient encounter procedure Jeff Oquendo APRN.REIMBURSEMENT DIRECTOR Work Phone: OB/Gynecology Comment on above: Encounter for gyneco logical examination (general) (routine) without abnormal findings (Primary Dx); Screening for cervical cancer; Unintended weight gain; Irregular bleeding Start: 11-19-2023 End: 11-19-2023 Patient encounter status Jeff Oquendo ZOE.REIMBURSEMENT DIRECTOR Work Phone: [facility] Start: 11-10-2023 End: 11-10-2023 Subsequent hospital visit by physician [facility] Work Phone: Radiology Comment on above: Irregular menses [N9 2.6] Start: 05-06-2023 Refill Marianna Long Work Phone: OB/Gynecology Comment on above: Refill Request Start: 07-09-2022 End: 07-09-2022 ambulatory Adrian Downing DO Work Phone: Family Medicine [place] Comment on above: Epigastric abdominal pain (Primary Dx); Bloating Start: 07-09-2022 End: 07-09-2022 Telemedicine consultation with patient Adrian Downing DO Work Phone: [facility] [place] Start: 06-11-2022 ambulatory Adrian osorio DO Work Phone: Family [facility] [place] Comment on above: lab results Start: 06-11-2022 E-mail encounter fro m caregiver Adrian Downing DO Work Phone: [facility] [place] Start: 06-06-2022 End: 06-06-2022 Patient encounter procedure Adrian Downing DO Work Phone: Family [facility] [place] Comment on above: Bloating (Primary Dx ); Epigastric abdominal pain Start: 12-27-2021 End: 12-27-2021 Patient encounter procedure Marianna De La Torre MD Work Phone: OB/Gynecology Comment on above: Breakthrough bleedin g on OCPs (Primary Dx) Procedures Date Procedure Procedure Detail Performing Clinician Start: 05-01-2025 Urnls dip stick/tabl et rgnt non-auto w/o micrscp Britney Vergara MD Work Phone: Start: 04-27-2025 Urnls dip stick/tabl et rgnt non-auto w/o micrscp Claude Saleh MD Work Phone: Start: 04-20-2025 Urnls dip stick/tabl et rgnt non-auto w/o micrscp Marianna De La Torre MD Work Phone: Start: 04-20-2025 Us preg uterus after 1st trimest 10/05 gestation Marianna De La Torre MD Work Phone: Start: 04-04-2025 Urnls dip stick/tabl et rgnt non-auto w/o micrscp Marianna De La Torre MD Work Phone: Start: 03-09-2025 Us preg uterus after 1st trimest 10/05 gestation Jeff Oquendo DATAWAREHOUSE DEVELOPER.REIMBURSEMENT DIRECTOR Work Phone: Start: 12-15-2024 Us preg uterus after 1st trimest 10/05 gestation Pool Villanuevamee DO Work Phone: Start: 10-27-2024 Us nuchal camejo slucency 1st gestation Jeff Oquendo DATAWAREHOUSE DEVELOPER.REIMBURSEMENT DIRECTOR Work Phone: Start: 10-13-2024 Antibody screen ADRIAN DOWNING Comment on above: Order Comment: Speci men Type: BLOOD SPECIMENOrdering Facility: [facility] Address: [address] [place] [address] Performed By: #### T SPN ####CC [facility] BLOOD BANKCLIA [id number] [place] [address] [place] Start: 09-22-2024 Us uterus l imited fetuses Jeff Oquendo DATAWAREHOUSE DEVELOPER.REIMBURSEMENT DIRECTOR Work Phone: Start: 11-10-2023 Us transvaginal Jeff kevin DATAWAREHOUSE DEVELOPER.REIMBURSEMENT DIRECTOR Work Phone: Start: 06-04-2022 Adult depression scr eening assessment Adrian Downing DO Work Phone: Start: 02-01-2019 Adult depression scr eening assessment Marianna De La Torre MD Work Phone: Plan of Treatment Date Care Activity Detail Author Start: 03-03-2032 Urine microalbumin profile DTaP,Tdap,Td Vaccine (8 - Td or Tdap) [facility] Start: 11-19-2026 Screening for malign ant neoplasm of cervix [facility] Start: 06-05-2025 Influenza vaccination [facility] Start: 05-01-2025 End: 05-01-2025 Patient encounter procedure 05/01/2025 9:50 AM EDT Routine Office Visit OB/Gynecology [address] [place], [place] [id number] Britney Vergara MD [address] [place] [id number] OB OB/Gynecology Comment on above: OB Start: 04-27-2025 End: 04-27-2025 Patient encounter procedure OB/Gynecology Comment on above: NST NST/OB Start: 04-20-2025 End: 04-20-2025 Patient encounter procedure Maternal Medicine Comment on above: Growth OB Start: 04-12-2025 End: 04-12-2025 Patient encounter procedure OB/Gynecology Comment on above: NST/OB NST Start: 04-10-2025 End: 04-10-2025 Patient encounter procedure 04/10/2025 10:00 AM EDT Routine Office Visit OB/Gynecology [address] [place], [place] [id number] NST OB/Gynecology Comment on above: NST Start: 04-04-2025 End: 04-04-2026 OBSTETRIC ULTRASOUND WHI OBSTETRIC ULTRASOUND WHI Anc Imaging Routine Obesity affecting in third trimester, unspecified obesity type (HCC) Uterine size-date discrepancy, third trimester (HCC) Expected: 04/04/2025, Expires: 04/04/2026 [facility] Work Phone: Comment on above: Expected: 04/04/2025 , Expires: 04/04/2026 Start: 04-04-2025 End: 04-04-2025 Patient encounter procedure 04/04/2025 1:50 PM EDT Routine Office Visit OB/Gynecology [address] [place] [address] Marianna De La Torre MD [address] [place], [place] [id number] Ob OB/Gynecology Comment on above: Ob Start: 03-24-2025 End: 06-23-2025 Thyrotropin [Units/volume] in Serum or Plasma [facility] Work Phone: Comment on above: Expected: 03/24/2025 , Expires: 06/23/2025 Start: 03-24-2025 End: 06-23-2025 Thyroxine (T4) free [Mass/volume] in Serum or Plasma [facility] Comment on above: Expected: 03/24/2025 , Expires: 06/23/2025 Start: 03-24-2025 End: 06-23-2025 Triiodothyronine (T3) Free [Mass/volume] in Serum or Plasma [facility] Comment on above: Expected: 03/24/2025 , Expires: 06/23/2025 Start: 03-24-2025 End: 03-24-2025 Patient encounter procedure 03/24/2025 1:00 PM EDT Office Visit [facility] [address] [place] [id number] Keyla Garsia APRN.[facility] [address] [place], [place] [id number] follow up sore throat [facility] Comment on above: follow up sore throa t Start: 03-23-2025 End: 03-23-2025 Patient encounter procedure 03/23/2025 3:50 PM EDT Routine Office Visit OB/Gynecology [address] [place], [place] [phone] Marianna De La Torre MD [address] [place], [place] [id number] OB OB/Gynecology Comment on above: OB Start: 02-24-2025 End: 02-24-2025 Patient encounter procedure 02/24/2025 9:00 AM EDT Routine Office Visit OB/Gynecology [address] [place] [address] Jeff Oquendo APRN.REIMBURSEMENT DIRECTOR [address] [place] [address] KAEL 2 WKS OB/Gynecology Comment on above: KAEL 2 WKS Start: 02-10-2025 End: 02-10-2025 Patient encounter procedure 02/10/2025 3:15 PM EDT Routine Office Visit OB/Gynecology [address] [place] [address] Gina Muñiz APRN.CNM [address] [place] [address] OB OB/Gynecology Comment on above: OB Start: 02-10-2025 End: 02-10-2025 ambulatory 02/10/2025 3:00 PM EDT Results Only [place] [facility] [address] [place] [address] glucose + labs [facility] Comment on above: glucose + labs Start: 01-12-2025 End: 01-12-2025 Patient encounter procedure 01/12/2025 4:30 PM EDT Routine Office Visit OB/Gynecology [address] [place] [address] Gina Muñiz APRN.CNM [address] [place] [address] OB Routine OB/Gynecology Comment on above: OB Routine Start: 01-12-2025 End: 04-13-2025 ANEMIA REFLEX PANEL ANEMIA REFLEX PANEL Lab Routine Supervision of high risk in second trimester (HCC) Other obesity affecting in second trimester (HCC) 23 weeks gestation of (HCC) Expected: 01/12/2025, Expires: 04/13/2025 [facility] Comment on above: Expected: 01/12/2025 , Expires: 04/13/2025 Start: 01-12-2025 End: 01-12-2026 GESTATIONAL GLUCOSE SCREEN, 1-HOUR, 50 GRAM, NON-FASTING GESTATIONAL GLUCOSE SCREEN, 1-HOUR, 50 GRAM, NON-FASTING Lab Routine Supervision of high risk in second trimester (HCC) Other obesity affecting in second trimester (HCC) 23 weeks gestation of ([facility]) Screening for diabetes mellitus Expected: 01/12/2025, Expires: 01/12/2026 [facility] Work Phone: Comment on above: Expected: 01/12/2025 , Expires: 01/12/2026 Start: 01-12-2025 End: 01-12-2026 SYPHILIS TREPONEMAL W/REFLEX SYPHILIS TREPONEMAL W/REFLEX Lab Routine Supervision of high risk in second trimester ([facility]) Other obesity affecting in second trimester (HCC) 23 weeks gestation of ([facility]) Expected: 01/12/2025, Expires: 01/12/2026 [facility] Comment on above: Expected: 01/12/2025 , Expires: 01/12/2026 Start: 12-23-2024 End: 12-23-2024 Patient encounter procedure Maternal Medicine Comment on above: Encounter for superv ision of high risk in first trimester, antepartum [O09.91]; with uncertain dates in first trimester [Z34.91]; Obesity affecting in first trimester, unspecified obesity type [O99.211] OB Routine Start: 12-15-2024 End: 12-15-2024 Patient encounter procedure Maternal Medicine Comment on above: anatomy OB Routine Start: 11-24-2024 End: 11-24-2024 Patient encounter procedure 11/24/2024 10:00 AM EST Routine Office Visit OB/Gynecology [address] [place] [address] Gina Muñiz APRN.[facility] [address] [place] [address] OB OB/Gynecology Comment on above: OB Start: 11-21-2024 End: 11-21-2024 Patient encounter procedure 11/21/2024 7:15 AM EST Office Visit OB/Gynecology [address] [place] [address] Jeff Oquendo, DATAWAREHOUSE DEVELOPER.REIMBURSEMENT DIRECTOR [address] [place] [address] annual OB/Gynecology Comment on above: annual Start: 11-08-2024 End: 11-08-2024 Patient encounter procedure Maternal Medicine Comment on above: Encounter for superv ision of high risk in first trimester, antepartum [O09.91]; 7 weeks gestation of [Z3A.01] Encounter for superv ision of high risk in first trimester, antepartum [O09.91]; with uncertain dates in first trimester [Z34.91]; Obesity affecting in first trimester, unspecified obesity type [O99.211] Start: 10-28-2024 End: 10-28-2024 Patient encounter procedure 10/28/2024 9:45 AM EST Routine Office Visit OB/Gynecology [address] [place] [address] Digna Emery, DATAWAREHOUSE DEVELOPER.CNM [address] [place] [address] 1st ob OB/Gynecology Comment on above: 1st ob Start: 10-27-2024 End: 10-27-2025 OBSTETRIC ULTRASOUND WHI OBSTETRIC ULTRASOUND WHI Anc Imaging Routine Obesity affecting in first trimester, unspecified obesity type Expected: 10/27/2024, Expires: 10/27/2025 [facility] Work Phone: Comment on above: Expected: 10/27/2024 , Expires: 10/27/2025 Start: 10-27-2024 End: 10-27-2024 Patient encounter procedure Maternal Medicine Comment on above: Encounter for superv ision of high risk in first trimester, antepartum [O09.91]; 7 weeks gestation of [Z3A.01] OB Routine Start: 10-24-2024 End: 10-24-2024 Patient encounter procedure 10/24/2024 10:20 AM EST Routine Office Visit OB/Gynecology [address] [place] [address] Joanne Menard MD [address] [place] [address] 1st ob OB/Gynecology Comment on above: 1st ob Start: 10-20-2024 End: 10-20-2024 Patient encounter procedure 10/20/2024 2:20 PM EST Routine Office Visit OB/Gynecology [address] [place] [address] Marianna De La Torre MD [address] [place] [address] 1st OB visit OB/Gynecology Comment on above: 1st OB visit Start: 10-12-2024 End: 10-12-2024 Patient encounter procedure 10/12/2024 2:00 PM EST Office Visit Family Medicine [place] [address] [facility] [place], [place] [phone] Adrian Downing DO [address] [facility] [place] [address] N/A Family [facility] [place] Comment on above: N/A Start: 10-03-2024 End: 01-02-2025 Chromosome 21 trisomy [Presence] in Blood or Tissue by Cytogenetics [id number] PLUS Lab Routine Encounter for supervision of high risk in first trimester, antepartum Expected: 10/03/2024, Expires: 01/02/2025 [facility] Work Phone: Comment on above: Expected: 10/03/2024 , Expires: 01/02/2025 Start: 09-22-2024 End: 12-22-2024 ANEMIA REFLEX PANEL ANEMIA REFLEX PANEL Lab Routine Encounter for supervision of high risk in first trimester, antepartum with uncertain dates in first trimester Obesity affecting in first trimester, unspecified obesity type Expected: 09/22/2024, Expires: 12/22/2024 [facility] Work Phone: Comment on above: Expected: 09/22/2024 , Expires: 12/22/2024 Start: 09-22-2024 End: 12-22-2024 Hemoglobin A1c in Blood HEMOGLOBIN A1C Lab Routine Encounter for supervision of high risk in first trimester, antepartum with uncertain dates in first trimester Obesity affecting in first trimester, unspecified obesity type Expected: 09/22/2024, Expires: 12/22/2024 [facility] Comment on above: Expected: 09/22/2024 , Expires: 12/22/2024 Start: 09-22-2024 End: 12-22-2024 Hepatitis B virus surface Ag [Presence] in Serum HEPATITIS B SURFACE ANTIGEN Lab Routine Encounter for supervision of high risk in first trimester, antepartum with uncertain dates in first trimester Obesity affecting in first trimester, unspecified obesity type Expected: 09/22/2024, Expires: 12/22/2024 [facility] Comment on above: Expected: 09/22/2024 , Expires: 12/22/2024 Start: 09-22-2024 End: 12-22-2024 Hepatitis C virus Ab [Presence] in Serum HEPATITIS C ANTIBODY IA WITH CONFIRMATION Lab Routine Encounter for supervision of high risk in first trimester, antepartum with uncertain dates in first trimester Obesity affecting in first trimester, unspecified obesity type Expected: 09/22/2024, Expires: 12/22/2024 [facility] Comment on above: Expected: 09/22/2024 , Expires: 12/22/2024 Start: 09-22-2024 End: 12-22-2024 HIV 1+2 Ab [Presence] in Serum or Plasma by Immunoassay HIV 1/2 COMBO WITH REFLEX TO DIFFERENTIATION Lab Routine Encounter for supervision of high risk in first trimester, antepartum with uncertain dates in first trimester Obesity affecting in first trimester, unspecified obesity type Expected: 09/22/2024, Expires: 12/22/2024 [facility] Comment on above: Expected: 09/22/2024 , Expires: 12/22/2024 Start: 09-22-2024 End: 09-22-2025 NUCHAL TRANSLUCENCY WHI NUCHAL TRANSLUCENCY WHI Anc Imaging Routine Encounter for supervision of high risk in first trimester, antepartum 7 weeks gestation of Expected: 09/22/2024, Expires: 09/22/2025 [facility] Comment on above: Expected: 09/22/2024 , Expires: 09/22/2025 Start: 09-22-2024 End: 09-22-2025 OBSTETRIC ULTRASOUND WHI OBSTETRIC ULTRASOUND WHI Anc Imaging Routine Encounter for supervision of high risk in first trimester, antepartum with uncertain dates in first trimester Obesity affecting in first trimester, unspecified obesity type Expected: 09/22/2024, Expires: 09/22/2025 [facility] Comment on above: Expected: 09/22/2024 , Expires: 09/22/2025 Start: 09-22-2024 End: 12-22-2024 RUBELLA IGG ANTIBODY RUBELLA IGG ANTIBODY Lab Routine Encounter for supervision of high risk in first trimester, antepartum with uncertain dates in first trimester Obesity affecting in first trimester, unspecified obesity type Expected: 09/22/2024, Expires: 12/22/2024 [facility] Comment on above: Expected: 09/22/2024 , Expires: 12/22/2024 Start: 09-22-2024 End: 12-22-2024 SYPHILIS TREPONEMAL W/REFLEX SYPHILIS TREPONEMAL W/REFLEX Lab Routine Encounter for supervision of high risk in first trimester, antepartum with uncertain dates in first trimester Obesity affecting in first trimester, unspecified obesity type Expected: 09/22/2024, Expires: 12/22/2024 [facility] Comment on above: Expected: 09/22/2024 , Expires: 12/22/2024 Start: 09-22-2024 End: 12-22-2024 TYPE + SCREEN TYPE + SCREEN Blood Bank Routine Encounter for supervision of high risk in first trimester, antepartum with uncertain dates in first trimester Obesity affecting in first trimester, unspecified obesity type Expected: 09/22/2024, Expires: 12/22/2024 [facility] Comment on above: Expected: 09/22/2024 , Expires: 12/22/2024 Start: 09-22-2024 End: 09-22-2024 Patient encounter procedure 09/22/2024 11:00 AM EST Initial Office Visit OB/Gynecology [address] [place] [id number] Jeff Oquendo, ZOE.REIMBURSEMENT DIRECTOR [address] [place] [address] 1st OB visit OB/Gynecology Comment on above: 1st OB visit Start: 06-05-2024 Covid-19 Vaccine ( season) Covid-19 Vaccine ( season) [facility] Start: 06-05-2024 Covid-19 Vaccine ( season) Covid-19 Vaccine () [facility] Start: 06-05-2024 Influenza vaccination [facility] Start: 05-16-2024 End: 05-16-2024 ambulatory 05/16/2024 10:30 AM EDT Results Only [place] [facility] [address] [place] [address] [place] [facility] Start: 05-12-2024 End: 08-11-2024 17-Hydroxyprogesterone [Mass/volume] in Serum or Plasma HYDROXYPROGESTERONE-17 Lab Routine Irregular periods Expected: 05/12/2024, Expires: 08/11/2024 [facility] Comment on above: Expected: 05/12/2024 , Expires: 08/11/2024 Start: 05-12-2024 End: 08-11-2024 Comprehensive metabolic 2000 panel - Serum or Plasma COMPREHENSIVE METABOLIC PANEL Lab Routine Irregular periods Expected: 05/12/2024, Expires: 08/11/2024 [facility] Comment on above: Expected: 05/12/2024 , Expires: 08/11/2024 Start: 05-12-2024 End: 08-11-2024 CREATININE BLD CREATININE BLD Lab Routine Irregular periods Expected: 05/12/2024, Expires: 08/11/2024 [facility] Comment on above: Expected: 05/12/2024 , Expires: 08/11/2024 Start: 05-12-2024 End: 08-11-2024 DHEA-S BLD DHEA-S BLD Lab Routine Irregular periods Expected: 05/12/2024, Expires: 08/11/2024 [facility] Work Phone: Comment on above: Expected: 05/12/2024 , Expires: 08/11/2024 Start: 05-12-2024 End: 08-11-2024 Fasting glucose [Mass/volume] in Serum or Plasma GLUCOSE, FASTING Lab Routine Irregular periods Expected: 05/12/2024, Expires: 08/11/2024 [facility] Comment on above: Expected: 05/12/2024 , Expires: 08/11/2024 Start: 05-12-2024 End: 08-11-2024 Insulin [Units/volume] in Serum or Plasma INSULIN ASSAY BLOOD Lab Routine Irregular periods Expected: 05/12/2024, Expires: 08/11/2024 [facility] Comment on above: Expected: 05/12/2024 , Expires: 08/11/2024 Start: 05-12-2024 End: 08-11-2024 Lipid 1996 panel - Serum or Plasma LIPID PANEL BASIC Lab Routine Irregular periods Expected: 05/12/2024, Expires: 08/11/2024 [facility] Comment on above: Expected: 05/12/2024 , Expires: 08/11/2024 Start: 10-05-2023 Behavioral Health Screening Behavioral Health Screening [facility] Start: 10-05-2023 Depression Assessment Depression Ass [facility] Start: 06-05-2023 Covid-19 Vaccine () Covid-19 Vaccine () [facility] Start: 06-05-2023 Influenza vaccination [facility] Start: 06-04-2023 Adult depression screening assessment DEPRESSION SCREENING [facility] Start: 10-05-2022 DEPRESSION ASSESSMENT DEPRESSION ASS [facility] Start: 06-06-2022 End: 08-06-2022 CELIAC SCREEN WITH REFLEX CELIAC SCREEN WITH REFLEX Lab Routine Epigastric abdominal pain Bloating Expected: 06/06/2022, Expires: 08/06/2022 [facility] Work Phone: Comment on above: Expected: 06/06/2022 , Expires: 08/06/2022 Start: 06-06-2022 End: 08-06-2022 H PYLORI ABS, IGG AND IGA H PYLORI ABS, IGG AND IGA Lab Routine Epigastric abdominal pain Bloating Expected: 06/06/2022, Expires: 08/06/2022 [facility] Work Phone: Comment on above: Expected: 06/06/2022 , Expires: 08/06/2022 Start: 06-05-2022 Influenza vaccination INFLUENZA (#1) [facility] Start: 12-14-2021 PAP TESTING PAP TESTING [facility] Start: 12-14-2021 Screening for malign ant neoplasm of cervix Pap Testing [facility] Start: 10-05-2021 DEPRESSION ASSESSMENT DEPRESSION ASS ESSMENT [facility] Start: 06-05-2021 Influenza vaccination INFLUENZA (#1) [facility] Start: 02-26-2020 Urine microalbumin profile DTAP,TDAP,TD (7 - Td or Tdap) [facility] Start: 02-02-2020 Adult depression screening assessment DEPRESSION SCREENING [facility] Start: 2015 Anxiety Screening Anxiety Screening [facility] Start: 2015 Depression Screening Depression Scre ening [facility] Start: 2015 HEPATITIS C SCREENING HEPATITIS C [facility] Start: 2015 Hepatitis C screening Hepatitis C [facility] Start: 2015 HIV SCREENING HIV SCREENING [facility] Start: 2015 HIV screening HIV Screening [facility] Start: 2013 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 (1 of 2 - Patient Seeks Protection) MENINGOCOCCAL B: Consider based on risk (1 of 2 - Patient Seeks Protection) [facility] Start: 2011 PEDS TO ADULT TRANSI TION ANNUAL ASSESSMENT PEDS TO ADULT TRANSITION ANNUAL ASSESSMENT [facility] Start: 2009 PEDS TO ADULT TRANSI TION INITIAL DISCUSSION PEDS TO ADULT TRANSITION INITIAL DISCUSSION [facility] Start: 2007 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 (1 of 2 - Risk Bexsero 2-dose series) MENINGOCOCCAL B: Consider based on risk (1 of 2 - Risk Bexsero 2-dose series) [facility] Start: 2002 COVID-19 VACCINE (1) COVID-19 VACCIN E (1) [facility] Start: 01-17-1998 COVID-19 VACCINE (#1) COVID-19 VACCI NE (#1) [facility] Bacteria identified in Throat by Culture BACTERIAL CULTURE, THROAT Microbiology Routine Sore throat Acute cough Dysphagia, unspecified type 03/24/2025 1:37 PM [facility] Bacteria identified in Urine by Culture URINE CULTURE Microbiology Routine Encounter for supervision of high risk in first trimester, antepartum with uncertain dates in first trimester Obesity affecting in first trimester, unspecified obesity type 09/22/2024 11:33 AM [facility] CELIAC SCREEN WITH REFLEX CELIAC SCREEN WITH REFLEX Lab Routine Epigastric abdominal pain Bloating 06/07/2022 9:11 AM [facility] Work Phone: Chlamydia trachomatis+Neisseria gonorrhoeae DNA [Presence] in Unspecified specimen by EVIE with probe detection GONORRHEA/CHLAMYDIA NAAT Lab Routine Encounter for supervision of high risk in first trimester, antepartum with uncertain dates in first trimester Obesity affecting in first trimester, unspecified obesity type 09/22/2024 11:33 AM [facility] End: 04-28-2025 nonstress test NON-STRESS TEST Procedures Routine Obesity affecting in third trimester, unspecified obesity type (HCC) Excessive weight gain in , third trimester ([facility]) Once per week for 4 Occurrences starting 03/23/2025 until 04/28/2025 [facility] Comment on above: Once per week for 4 Occurrences starting 03/23/2025 until 04/28/2025 H PYLORI ABS, IGG AND IGA H PYLO RI ABS, IGG AND IGA Lab Routine Epigastric abdominal pain Bloating 06/07/2022 9:11 AM [facility] Work Phone: PAP TEST PAP TEST Lab Rou jozef Screening for cervical cancer 11/19/2023 8:12 AM [facility] Work Phone: ROUTINE, GR OUP B STREPTOCOCCUS BY PCR ROUTINE, GROUP B STREPTOCOCCUS BY PCR Microbiology Routine 36 weeks gestation of ([facility]) Encounter for supervision of high risk in third trimester, antepartum ([facility]) Supervision of high risk in third trimester ([facility]) 04/12/2025 11:28 AM [facility] STREP A MOLECULAR (POC) STREP A MOLECULAR (POC) Microbiology Routine Sore throat Ordered: 03/15/2025 [facility] Work Phone: Comment on above: Ordered: 03/15/2025 URINE OB DIP B/O URINE OB DIP B/ O Lab Routine Obesity affecting in third trimester, unspecified obesity type (HCC) Excessive weight gain in , third trimester (HCC) Supervision of high risk in third trimester (HCC) 33 weeks gestation of (HCC) Ordered: 03/23/2025 [facility] Work Phone: Comment on above: Ordered: 03/23/2025 URINE OB DIP B/O URINE OB DIP B/ O Lab Routine 36 weeks gestation of (HCC) Encounter for supervision of high risk in third trimester, antepartum (HCC) Supervision of high risk in third trimester ([facility]) Ordered: 04/12/2025 [facility] Work Phone: Comment on above: Ordered: 04/12/2025 [facility] Immunizations Immunization Date Immunization Notes Care Provider [facility] 08-21-2020 influenza virus vaccine, unspecified formulation 2 Work Phone: [facility] 07-17-2018 influenza, injectabl e, quadrivalent, contains preservative Marianna De La Torre MD Work Phone: [facility] 08-08-2017 influenza, injectabl e, quadrivalent, contains preservative Marianna De La Torre MD Work Phone: [facility] 07-26-2016 influenza, injectabl e, quadrivalent, contains preservative Marianna De La Torre MD Work Phone: [facility] 08-09-2015 influenza, injectabl e, quadrivalent, contains preservative Marianna De La Torre MD Work Phone: [facility] Work Phone: 08-03-2014 influenza, seasonal, injectable Marianna De La Torre MD Work Phone: [facility] Work Phone: 11-29-2013 human papilloma viru s vaccine, quadrivalent Marianna De La Torre MD Work Phone: [facility] Work Phone: 11-29-2013 Meningococcal, MCV4, unspecified conjugate formulation(groups A, C, Y and W-135) Marianna De La Torre MD Work Phone: [facility] Work Phone: 07-15-2013 human papilloma viru s vaccine, quadrivalent Marianna De La Torre MD Work Phone: [facility] 07-15-2013 influenza virus vaccine, unspecified formulation Marianna De La Torre MD Work Phone: [facility] 05-10-2013 human papilloma viru s vaccine, quadrivalent Marianna De La Torre MD Work Phone: [facility] 07-10-2012 influenza virus vaccine, unspecified formulation Marianna De La Torre MD Work Phone: [facility] Work Phone: 08-07-2011 influenza virus vaccine, unspecified formulation Marianna De La Torre MD Work Phone: [facility] 04-17-2011 hepatitis A vaccine, unspecified formulation Marianna De La Torre MD Work Phone: [facility] Work Phone: 08-13-2010 influenza virus vaccine, unspecified formulation Marianna De La Torre MD Work Phone: [facility] 02-25-2010 hepatitis A vaccine, unspecified formulation Marianna De La Torre MD Work Phone: [facility] Work Phone: 02-25-2010 Meningococcal, MCV4, unspecified conjugate formulation(groups A, C, Y and W-135) Marianna De La Torre MD Work Phone: [facility] Work Phone: 02-25-2010 tetanus toxoid, redu agustin diphtheria toxoid, and acellular pertussis vaccine, adsorbed Marianna De La Torre MD Work Phone: [facility] Work Phone: 02-25-2010 varicella virus vaccine Gaye De La Torre MD Work Phone: [facility] Work Phone: 08-30-2008 influenza virus vaccine, unspecified formulation Marianna De La Torre MD Work Phone: [facility] 01-25-2003 diphtheria, tetanus toxoids and acellular pertussis vaccine Marianna De La Torre MD Work Phone: [facility] Work Phone: 01-25-2003 measles, mumps and rubella virus vaccine Marianna De La Torre MD Work Phone: [facility] Work Phone: 01-25-2003 poliovirus vaccine, inactivated Marianna De La Torre MD Work Phone: [facility] Work Phone: 10-19-1998 diphtheria, tetanus toxoids and acellular pertussis vaccine Marianna De La Torre MD Work Phone: [facility] Work Phone: 10-19-1998 haemophilus influenz ae type b vaccine, HbOC conjugate Marianna De La Torre MD Work Phone: [facility] Work Phone: 1998 measles, mumps and rubella virus vaccine Marianna De La Torre MD Work Phone: [facility] Work Phone: 1998 poliovirus vaccine, inactivated Marianna De La Torre MD Work Phone: [facility] Work Phone: 1998 varicella virus vaccine Gaye De La Torre MD Work Phone: [facility] Work Phone: 01-17-1998 diphtheria, tetanus toxoids and acellular pertussis vaccine Marianna De La Torre MD Work Phone: [facility] Work Phone: 01-17-1998 haemophilus influenz ae type b vaccine, HbOC conjugate Marianna De La Torre MD Work Phone: [facility] Work Phone: 01-17-1998 hepatitis B vaccine, pediatric or pediatric/adolescent dosage Marianna De La Torre MD Work Phone: [facility] Work Phone: 1997 diphtheria, tetanus toxoids and acellular pertussis vaccine Marianna De La Torre MD Work Phone: [facility] Work Phone: 1997 haemophilus influenz ae type b vaccine, HbOC conjugate Marianna De La Torre MD Work Phone: [facility] Work Phone: 1997 poliovirus vaccine, inactivated Marianna De La Torre MD Work Phone: [facility] Work Phone: 1997 diphtheria, tetanus toxoids and acellular pertussis vaccine Marianna De La Torre MD Work Phone: [facility] Work Phone: 1997 haemophilus influenz ae type b vaccine, HbOC conjugate Marianna De La Torre MD Work Phone: [facility] Work Phone: 1997 hepatitis B vaccine, pediatric or pediatric/adolescent dosage Marianna De La Torre MD Work Phone: [facility] Work Phone: 1997 poliovirus vaccine, inactivated Marianna De La Torre MD Work Phone: [facility] Work Phone: 1997 hepatitis B vaccine, pediatric or pediatric/adolescent dosage Marianna De La Torre MD Work Phone: [facility] Work Phone: Payers Date [facility] Category [facility] [id number] 2024 Unknown [id number] 2021 Unknown MMO MMO [employer] [id number] 2021-Present [phone] [address] [place] [address] PPO [id number] 2021 Unknown [id number] 2021 Unknown [id number] 1995 Unknown [id number] Social History Date Type Detail Facility Start: 06-06-2022 Tobacco smoking stat [facility] Never smoked tobacco [facility] Work Phone: Start: 12-27-2021 End: 05-01-2025 Alcohol intake Ex-drinker (finding) [facility] Start: 11-05-2020 History SDOH Alcohol Frequency 3 [facility] Start: 11-05-2020 End: 07-09-2022 History SDOH Alcohol Std Drinks 1 [facility] Start: 11-05-2020 End: 07-09-2022 History SDOH Alcohol Binge 2 [facility] Start: 11-05-2020 End: 06-04-2022 History SDOH Social Connections Phone 5 [facility] Start: 11-05-2020 History SDOH Social Connections Living 7 [facility] Start: 11-05-2020 History SDOH Physica l Activity MPS 4 [facility] Start: 11-04-2020 Education 15 [facility] Start: 1995 Sex Assigned At Female C [facility] Start: 12-17-2021 End: 07-07-2022 Exposure to SARS-CoV-2 (event) Not sure [facility] Start: 06-06-2022 Tobacco use and exposure Smoke less tobacco non-user [facility] Work Phone: Start: 06-04-2022 History SDOH Social Connections Meetings 98 [facility] Start: 06-04-2022 History SDOH Social Connections Living 8 [facility] Start: 06-04-2022 History SDOH Physica l Activity MPS 6 [facility] Start: 06-04-2022 End: 10-28-2023 History of Social function [facility] Start: 06-04-2022 End: 10-28-2023 Social connection and isolation panel [facility] Do you belong to any clubs or organizations such as synagogue groups, unions, fraternal or athletic groups, or school groups? No [facility] How often do you att end meetings of the clubs or organizations you belong to? Patient refused [facility] Are you now , , , , never or living with a partner? Living with partner [facility] How often to you hav e a drink containing alcohol? Monthly or less [facility] How many standard dr inks containing alcohol do you have on a typical day? 1 or 2 [facility] How often do you hav e 6 or more drinks on 1 occasion? Less than monthly [facility] Do you feel stress - tense, restless, nervous, or anxious, or unable to sleep at night because your mind is troubled all the time - these days [OSQ] Not at all [facility] (I/We) worried shayy er (my/our) food would run out before (I/we) got money to buy more. Never true [facility] Start: 08-09-2020 Gender identity Identifies as female gender (finding) [facility] Are you now , , , , never or living with a partner? [facility] How hard is it for y ou to pay for the very basics like food, housing, medical care, and heating Not very hard [facility] Do you feel stress - tense, restless, nervous, or anxious, or unable to sleep at night because your mind is troubled all the time - these days [OSQ] Only a little [facility] Start: 08-12-2024 [facility] Goals Date Patient Goal Desired Activity /State Personal health goal Functional Status Date Assessment Result Facility 09-19-2014 Are you deaf, or do you have serious difficulty hearing No 09/19/2014 8:04 AM Valerie Ochoa LPN [facility] 09-19-2014 Are you blind, or do you have serious difficulty seeing, even when wearing glasses No 09/19/2014 8:04 AM Valerie Ochoa LPN [facility] 09-19-2014 Do you have serious difficulty walking or climbing stairs No 09/19/2014 8:04 AM Valerie Ochoa LPN No [facility] 09-19-2014 Do you have difficul ty dressing or bathing No 09/19/2014 8:04 AM Valerie Ochoa LPN No [facility] 09-19-2014 Because of a physica l, mental, or emotional condition, do you have difficulty doing errands alone such as visiting a physician's office or shopping No 09/19/2014 8:04 AM Valerie Ochoa LPN No [facility] Mental Status Date Assessment Result Facility 09-19-2014 Because of a physica l, mental, or emotional condition, do you have serious difficulty concentrating, remembering, or making decisions No 09/19/2014 8:04 AM Valerie Ochoa LPN No [facility] Clinical Notes 12-27-2021 to 05-01-2025 Quick Notes - Britney Vergara MD - 05/01/2025 12:42 PM EDTPrenatal Quick Notes - Britney Vergara MD - 05/01/2025 12:42 PM EDTPatient Claude Orellana MD - 04/27/2025 5:13 PM EDT Note Date & Type Note Facility 05-01-2025 Progress note Formatting of t his note might be different from the original. S: Digna Sykes is a 29 year old female who presents at 05/05/2025, by Last Menstrual Period for a routine visit. Denies headache, visual changes, chest pain, shortness of breath, vaginal bleeding, leakage of fluid, or dysuria. Feeling well, no complaints. Good movement, No contractions O: See flow sheet Gen: No apparent distress Abd: Gravid, nontender SENSITIVE EXAMINATION CONSENT: The sensitive examination was discussed with the Patient or Patient's Authorized Auto Mechanics Teacher. As applicable, any other physician, advance practice provider, medical student, or other health professional student that will be observing or involved in the sensitive examination for educational or training purposes was discussed with the Patient or Authorized Auto Mechanics Teacher. The Patient or Authorized Auto Mechanics Teacher has agreed to proceed with the sensitive examination. IOL at 40 weeks ASSESSMENT/PLAN: 1. 39 weeks gestation of (HCC) - ICD9: V22.2, ICD10: Z3A.39 (primary diagnosis) - URINE OB DIP B/O 2. Encounter for supervision of high risk in third trimester, antepartum (HCC) - ICD9: V23.9, ICD10: O09.93 - URINE OB DIP B/O Britney Vergara MD [facility] 05-01-2025 Miscellaneous Notes S: Digna Sykes is a 29 year old female who presents at 05/05/2025, by Last Menstrual Period for a routine visit. Denies headache, visual changes, chest pain, shortness of breath, vaginal bleeding, leakage of fluid, or dysuria. Feeling well, no complaints. Good movement, No contractions O: See flow sheet Gen: No apparent distress Abd: Gravid, nontender SENSITIVE EXAMINATION CONSENT: The sensitive examination was discussed with the Patient or Patient's Authorized Auto Mechanics Teacher. As applicable, any other physician, advance practice provider, medical student, or other health professional student that will be observing or involved in the sensitive examination for educational or training purposes was discussed with the Patient or Authorized Auto Mechanics Teacher. The Patient or Authorized Auto Mechanics Teacher has agreed to proceed with the sensitive examination. IOL at 40 weeks ASSESSMENT/PLAN: 1. 39 weeks gestation of (HCC) - ICD9: V22.2, ICD10: Z3A.39 (primary diagnosis) - URINE OB DIP B/O 2. Encounter for supervision of high risk in third trimester, antepartum (HCC) - ICD9: V23.9, ICD10: O09.93 - URINE OB DIP B/O Britney Vergara MD documented in this encounter [facility] 05-01-2025 Instructions Angy Jiménez LPN - 05/01/2025 9:57 AM EDT SEQUENTIAL SCREENINGS The [facility] offers sequential screenings for women who are interested in screenings for chromosomal abnormalities and certain defects during a . The sequential screen combines ultrasound and blood tests to determine the risk of chromosomal abnormalities, including Down's Syndrome (Trisomy 21) and Trisomy 18, as well as open neural tube defects including spina bifida. Ultrasound examination is performed between 11 weeks and 13 weeks gestational age. Blood tests are drawn after the ultrasound and again later in the between 15 and 21 weeks gestational age. Please let your physician know if you are interested in this testing. It will require an appointment with our refrigerator repair technician. This is not an ultrasound performed by a physician in our office during a routine visit. SIGNS AND SYMPTOMS OF LABOR 1. Contractions every 10 minutes or more often 2. Clear, pink, or brownish fluid (water) leaking from vagina 3. Feeling that baby is pushing down, pressure 4. Low, dull backache 5. Cramps that feel like a period 6. Cramps with or without diarrhea If you notice any of the above symptoms, contact our office at [phone] and ask to speak with a nurse. After hours, you can call doctors registry at [phone] OR call [facility] at [phone] and ask to have the doctor regional business development manager paged. If you consider this an emergency, dial [phone] or go to your nearest emergency department. NEED HELP? Are you dealing with a violent or abusive relationship? Are you a victim of rape or sexual assult? Call [facility] ([place]) 24 hour Crisis Hotline: 884.709.9300 or 066-388-6073. MANUAL Your Guide to a Healthy manual is now on-line. Visit [email or web address] ncyGuide to download your free copy documented in this encounter [facility] 04-27-2025 Note HNO ID: [id number] Author: CLAUDE SALEH MD Service: ? Author Type: Physician Type: Progress Notes Filed: 04/27/2025 17:14 Note Text: NST SUMMARY PROVIDER ASSESSMENT AND INTERPRETATION Digna Sykes is a 29 year old female, , who is at 38w6d with an PAZ of 05/05/2025, by Last Menstrual Period dating method. Indications for NST: Obesity Baseline: 135 Variability: Moderate Accelerations: Present 15 X 15 Decelerations: None Contractions: TOCO: None Interpretation: Reactive SIGNATURE: Claude Saleh DO [facility] 04-27-2025 History of Present illness Narrative NST SUMMARY PROVIDER ASSESSMENT AND INTERPRETATION Digna Sykes is a 29 year old female, , who is at 38w6d with an PAZ of 05/05/2025, by Last Menstrual Period dating method. Indications for NST: Obesity Baseline: 135 Variability: Moderate Accelerations: Present 15 X 15 Decelerations: None Contractions: TOCO: None Interpretation: Reactive SIGNATURE: Claude Saleh DO SW- Pt doing well. Some cramping. No ctx, vb, lof. Good FM PE: Gen- NAD, well appearing Abd- Soft, gravid, NT See flowsheet A/p 38 wk gestation - Discussed r/b/a IOL and consent signed. Patient is undecided on when she would like the induction. She is considering and will call the office tomorrow. Discussed limitations with growth ultrasounds. Discussed risks of obesity in , and induction risks. Questions answered - RTO 1 wk Claude Saleh DO documented in this encounter [facility] 04-27-2025 Note HNO ID: [id number] Author: CLAUDE SALEH MD Service: ? Author Type: Physician Type: Progress Notes Filed: 04/27/2025 17:14 Note Text: SW- Pt doing well. Some cramping. No ctx, vb, lof. Good FM PE: Gen- NAD, well appearing Abd- Soft, gravid, NT See flowsheet A/p 38 wk gestation - Discussed r/b/a IOL and consent signed. Patient is undecided on when she would like the induction. She is considering and will call the office tomorrow. Discussed limitations with growth ultrasounds. Discussed risks of obesity in , and induction risks. Questions answered - RTO 1 wk Claude Saleh DO [facility] 04-27-2025 Instructions Ju Steele MA - 04/27/2025 2:06 PM EDT SEQUENTIAL SCREENINGS The [facility] offers sequential screenings for women who are interested in screenings for chromosomal abnormalities and certain defects during a . The sequential screen combines ultrasound and blood tests to determine the risk of chromosomal abnormalities, including Down's Syndrome (Trisomy 21) and Trisomy 18, as well as open neural tube defects including spina bifida. Ultrasound examination is performed between 11 weeks and 13 weeks gestational age. Blood tests are drawn after the ultrasound and again later in the between 15 and 21 weeks gestational age. Please let your physician know if you are interested in this testing. It will require an appointment with our refrigerator repair technician. This is not an ultrasound performed by a physician in our office during a routine visit. SIGNS AND SYMPTOMS OF LABOR 1. Contractions every 10 minutes or more often 2. Clear, pink, or brownish fluid (water) leaking from vagina 3. Feeling that baby is pushing down, pressure 4. Low, dull backache 5. Cramps that feel like a period 6. Cramps with or without diarrhea If you notice any of the above symptoms, contact our office at [phone] and ask to speak with a nurse. After hours, you can call doctors registry at [phone] OR call [facility] at [phone] and ask to have the doctor regional business development manager paged. If you consider this an emergency, dial [phone] or go to your nearest emergency department. NEED HELP? Are you dealing with a violent or abusive relationship? Are you a victim of rape or sexual assult? Call [facility] ([facility] 24 hour Crisis Hotline: 654.450.9837 or 233-830-4146. MANUAL Your Guide to a Healthy manual is now on-line. Visit [email or web address] ncyGuide to download your free copy documented in this encounter [facility] 04-24-2025 Note HNO ID: [id number] Author: RIRI CESAR, ? Service: ? Author Type: Patient Farm Equipment Engineer Type: Progress Notes Filed: 04/24/2025 08:58 Note Text: POPULATION HEALTH NAVIGATION OUTREACH Action/FYI Patient returned call added lay out former Reason for Outreach Medicaid OB/Peds Care Gaps due: N/A Patient Contacted: Spoke to patient/parent/or legal guardian Patient identified by name and : Yes Medicaid OB/Peds actions taken: /Pathology Lab Technician added Navigation Signature: Riri Cesar Population Health Navigator April 24, 2025 8:57 AM [facility] 04-24-2025 Note HNO ID: [id number] Author: RIRI CESAR, ? Service: ? Author Type: Patient Farm Equipment Engineer Type: Progress Notes Filed: 04/24/2025 08:50 Note Text: POPULATION HEALTH NAVIGATION OUTREACH Action/FYI 3rd attempt left message to add lay out former to ob provider field Reason for Outreach Medicaid OB/Peds Care Gaps due: N/A Patient Contacted: Unable or unnecessary to reach patient: Unable to reach patient Left message Navigation Signature: Riri Cesar Population The Health Wagon Navigator April 24, 2025 8:50 AM [facility] 04-21-2025 Note HNO ID: [id number] Author: RIRI CESAR, ? Service: ? Author Type: Patient Farm Equipment Engineer Type: Progress Notes Filed: 04/21/2025 08:17 Note Text: POPULATION HEALTH NAVIGATION OUTREACH Action/FYI Left message to add lay out former to OB provider field, My chart sent Reason for Outreach Medicaid OB/Peds Care Gaps due: N/A Patient Contacted: Unable or unnecessary to reach patient: Unable to reach patient Left message MyChart message sent Navigation Signature: Riri Cesar Population Health Navigator April 21, 2025 8:16 AM [facility] 04-21-2025 History of Present illness Narrative POPULATION HEALTH NAVIGATION OUTREACH Action/FYI Left message to add lay out former to OB provider field, My chart sent Reason for Outreach Medicaid OB/Peds Care Gaps due: N/A Patient Contacted: Unable or unnecessary to reach patient: Unable to reach patient Left message MyChart message sent Navigation Signature: Riri Cesar Population Health Navigator April 21, 2025 8:16 AM documented in this encounter [facility] 04-21-2025 Note Patient Outreach (NE TNAV) DIGNA SYKES ([id number]) 1995 F Date Time Provider Department 04/21/25 RIRI CESAR During your visit today, we recorded the following information about you: Riri Cesar 04/21/2025 8:17 AM Signed POPULATION HEALTH NAVIGATION OUTREACH Action/FYI Left message to add lay out former to OB provider field, My chart sent Reason for Outreach Medicaid OB/Peds Care Gaps due: N/A Patient Contacted: Unable or unnecessary to reach patient: Unable to reach patient Left message [employer] message sent Navigation Signature: Riri Cesar Works[employer]are Health Navigator April 21, 2025 8:16 AM Riri Cesar 04/24/2025 8:50 AM Signed POPULATION HEALTH NAVIGATION OUTREACH Action/FYI 3rd attempt left message to add lay out former to ob provider field Reason for Outreach Medicaid OB/Peds Care Gaps due: N/A Patient Contacted: Unable or unnecessary to reach patient: Unable to reach patient Left message Navigation Signature: Riri Cesar Ellevation Navigator April 24, 2025 8:50 AM Riri Cesar 04/24/2025 8:58 AM Signed POPULATION HEALTH NAVIGATION OUTREACH Action/FYI Patient returned call added lay out former Reason for Outreach Medicaid OB/Peds Care Gaps due: N/A Patient Contacted: Spoke to patient/parent/or legal guardian Patient identified by name and : Yes Medicaid OB/Peds actions taken: /Pathology Lab Technician added Navigation Signature: Riri Cesar Ellevation Navigator April 24, 2025 8:57 AM Allergies As of Date: 04/21/2025 Noted Allergy Reaction AMOXICILLIN 11/14/2006 4 - Hives PENICILLINS 03/03/2022 4 - Hives Date Reviewed: 04/20/2025 Reviewed by: Marianna De La Torre MD - Fully Assessed Reason for Visit: Population Health Navigation Outreach [3910] Cmt: to PCP/OB Prescriptions as of 04/24/2025 - aspirin, enteric coated (ECOTRIN LOW STRENGTH) 81 mg EC tablet Take 1 tablet by mouth once daily. - PNV no.95/ferrous fum/folic ac ( ORAL) Take by mouth. - ondansetron orally disintegrating (ZOFRAN ODT) 4 mg disintegrating tablet Take 1 tablet by mouth every 8 hours as needed for nausea/vomiting. - acyclovir (ZOVIRAX) 800 mg tablet Take 1 tablet by mouth three times a day. Take at first signs of cold sore outbreak x 5-7 days. Problem List As Of Date 04/21/2025 Noted Resolved Dysmenorrhea [N94.6] 07/12/2015 09/22/2024 Obesity affecting in third trimester *09/22/2024 with uncertain dates in first trimest*09/22/2024 02/10/2025 Nausea and vomiting during [O21.9] 09/22/2024 11/24/2024 Penicillin allergy [Z88.0] 09/23/2024 Encounter for supervision of high risk pregnanc*02/24/2025 Encounter Status:Closed by RIRI CESAR on 04/21/25 [facility] 04-20-2025 Note Indication Evaluation of growth, Evaluation of well-being Maternal obesity, BMI >30 Impression - Single, live, intrauterine . - presentation is cephalic. - The biometry is consistent with the assigned gestational dating. - The EFW is 3629 g, at the 84%. AC is at the >99%. - The amniotic fluid volume is normal amount with an MVP of 7.6 cm and an ALEKSANDRA of 16.2 cm. - The placenta is anterior, fundal. - BPP 8/8. - No malformations visualized on a limited survey as detailed below. Recommendations Additional follow-up as clinically indicated. Maternal Assessment Height 173 cm Height (ft) 5 ft Height (in) 8 in Physical Exam Initial weight (lb) 228 lb Initial BMI 34.67 kg/m Maternal assessment other: 1 Para 0 REMOTE READ Method Transabdominal ultrasound examination Jansen . Number of fetuses: 1 Dating LMP on: 07/29/2024 GA by LMP 37 w + 6 d PAZ by LMP: 05/05/2025 GA by prior assessment 37 w + 6 d PAZ by prior assessment: 05/05/2025 Previous Ultrasound on: 09/22/2024 Type of prior assessment: CRL U/S measurement at prior assessment date 13.2 mm GA by previous U/S 37 w + 4 d PAZ by previous Ultrasound: 05/07/2025 Ultrasound examination on: 04/20/2025 GA by U/S based upon: AC, BPD, Femur, HC GA by U/S 37 w + 6 d PAZ by U/S: 05/05/2025 Assigned: based on the LMP, selected on 10/27/2024 Assigned GA 37 w + 6 d Assigned PAZ: 05/05/2025 General Evaluation Cardiac activity present. FHR 148 bpm. movements: present. Presentation: cephalic Placenta: Placental site: anterior, fundal Umbilical cord: Cord vessels: 3 vessel cord Amniotic fluid: Amount of AF: normal amount. MVP 7.6 cm. ALEKSANDRA 16.2 cm. Q1 7.6 cm, Q2 3.7 cm, Q3 0.0 cm, Q4 4.9 cm Biophysical Profile 2: breathing movements 2: Gross body movements 2: tone 2: Amniotic fluid volume 05/12 Biophysical profile score Growth Overview Exam date GA BPD (mm) HC (mm) AC (mm) FL (mm) HL (mm) EFW (g) 12/15/2024 19w 6d 49.4 88% 175.1 55% 149.2 55% 30.3 46% 30.1 56% 315 43% 03/09/2025 31w 6d 83.5 87% 300.6 62% 311.7 >99% 57.6 15% 2176 84% 04/20/2025 37w 6d 93.6 78% 328.8 35% 370.4 >99% 69.7 32% 3629 84% Biometry Standard BPD 93.6 mm 38w 1d 78% Hadlock OFD 113.2 mm 35w 1d 32% Nicolaides HC 328.8 mm 36w 5d 35% Jatin AC 370.4 mm 41w 0d >99% Hadlock Femur 69.7 mm 35w 2d 32% Jatin EFW 3,629 g -/- 84% Hadlock EFW (lb) 8 lb EFW (oz) 0 oz EFW by: Hadlock (HC-AC-FL) [employer]r 5.3 mm Extremities / Bony Struc FL / HC 0.21 Other Structures FHR 148 bpm Anatomy Lateral ventricles: normal Cavum septi pellucidi: normal Cerebellum: normal Cisterna magna: normal 4-chamber view: normal RVOT view: normal LVOT view: normal 3-vessel view: normal Heart / Thorax Situs: situs solitus (normal) Diaphragm: normal Stomach: normal Kidneys: normal Bladder: normal sex: female Wants to know sex: yes Performed By: Leonie Vargas, PABLONV, RVT Read By: Amy Pickard M.D. [facility] 04-20-2025 Progress note Formatting of t his note might be different from the original. KJ - S: Digna denies LOF, contractions or vaginal bleeding. O: 37w6d, see flow sheet SENSITIVE EXAM: Sensitive exam not performed. A/P: Assessment & Plan 37 weeks gestation of ([facility]) Orders: URINE OB DIP B/O Encounter for supervision of high risk in third trimester, antepartum ([facility]) Orders: URINE OB DIP B/O Supervision of high risk in third trimester ([facility]) Orders: URINE OB DIP B/O Obesity affecting in third trimester, unspecified obesity type (HCC) Growth US today (The EFW is 3629 g, at the 84%. AC is at the >99%) with BPP 8/8 Declines scheduling 39wk IOL but is OK with IOL around 40wks. Orders: URINE OB DIP B/O Reviewed labor & FM precautions Marianna De La Torre MD [facility] 04-20-2025 Miscellaneous Notes KJ - S: Digna denies LOF, contractions or vaginal bleeding. O: 37w6d, see flow sheet SENSITIVE EXAM: Sensitive exam not performed. A/P: Assessment & Plan 37 weeks gestation of ([facility]) Orders: URINE OB DIP B/O Encounter for supervision of high risk in third trimester, antepartum ([facility]) Orders: URINE OB DIP B/O Supervision of high risk in third trimester (HCC) Orders: URINE OB DIP B/O Obesity affecting in third trimester, unspecified obesity type (HCC) Growth US today (The EFW is 3629 g, at the 84%. AC is at the >99%) with BPP 05/12 Declines scheduling 39wk IOL but is OK with IOL around 40wks. Orders: URINE OB DIP B/O Reviewed labor & FM precautions Marianna De La Torre MD documented in this encounter [facility] 04-20-2025 Instructions Ivette, JuSHERI meza - 04/20/2025 11:04 AM EDT SEQUENTIAL SCREENINGS The [facility] offers sequential screenings for women who are interested in screenings for chromosomal abnormalities and certain defects during a . The sequential screen combines ultrasound and blood tests to determine the risk of chromosomal abnormalities, including Down's Syndrome (Trisomy 21) and Trisomy 18, as well as open neural tube defects including spina bifida. Ultrasound examination is performed between 11 weeks and 13 weeks gestational age. Blood tests are drawn after the ultrasound and again later in the between 15 and 21 weeks gestational age. Please let your physician know if you are interested in this testing. It will require an appointment with our refrigerator repair technician. This is not an ultrasound performed by a physician in our office during a routine visit. SIGNS AND SYMPTOMS OF LABOR 1. Contractions every 10 minutes or more often 2. Clear, pink, or brownish fluid (water) leaking from vagina 3. Feeling that baby is pushing down, pressure 4. Low, dull backache 5. Cramps that feel like a period 6. Cramps with or without diarrhea If you notice any of the above symptoms, contact our office at [phone] and ask to speak with a nurse. After hours, you can call doctors registry at [phone] OR call [facility] at [phone] and ask to have the doctor regional business development manager paged. If you consider this an emergency, dial 9-1-1 or go to your nearest emergency department. NEED HELP? Are you dealing with a violent or abusive relationship? Are you a victim of rape or sexual assult? Call [facility] ([place]) 24 hour Crisis Hotline: 571.343.4731 or 870-706-5285. MANUAL Your Guide to a Healthy manual is now on-line. Visit [email or web address] [email or web address] to download your free copy documented in this encounter [facility] 04-12-2025 Note HNO ID: [id number] Author: BRITNEY VERGARA MD Service: ? Author Type: Physician Type: Progress Notes Filed: 04/12/2025 11:59 Note Text: NST SUMMARY PROVIDER ASSESSMENT AND INTERPRETATION Indications for NST: Obesity Baseline: 145 Variability: Moderate Accelerations: Present 15 X 15 Decelerations: None Interpretation: Reactive SIGNATURE: Britney Vergara MD [facility] 04-12-2025 History of Present illness Narrative NST SUMMARY PROVIDER ASSESSMENT AND INTERPRETATION Indications for NST: Obesity Baseline: 145 Variability: Moderate Accelerations: Present 15 X 15 Decelerations: None Interpretation: Reactive SIGNATURE: Britney Vergara MD documented in this encounter [facility] 04-12-2025 Progress note Formatting of t his note might be different from the original. S: Digna Sykes is a 29 year old female who presents at 05/05/2025, by Last Menstrual Period for a routine visit. Denies headache, visual changes, chest pain, shortness of breath, vaginal bleeding, leakage of fluid, or dysuria. Feeling well, no complaints. Good movement, No contractions O: See flow sheet Gen: No apparent distress Abd: Gravid, nontender NST reactive VTX by US GBS collected- PCN allergy ASSESSMENT/PLAN: 1. 36 weeks gestation of (HCC) - ICD9: V22.2, ICD10: Z3A.36 (primary diagnosis) - URINE OB DIP B/O - ROUTINE, GROUP B STREPTOCOCCUS BY PCR 2. Encounter for supervision of high risk in third trimester, antepartum (HCC) - ICD9: V23.9, ICD10: O09.93 - URINE OB DIP B/O - ROUTINE, GROUP B STREPTOCOCCUS BY PCR 3. Supervision of high risk in third trimester ([facility]) - ICD9: V23.9, ICD10: O09.93 - URINE OB DIP B/O - ROUTINE, GROUP B STREPTOCOCCUS BY PCR Britney Vergara MD [facility] 04-12-2025 Miscellaneous Notes S: Digna Sykes is a 29 year old female who presents at 05/05/2025, by Last Menstrual Period for a routine visit. Denies headache, visual changes, chest pain, shortness of breath, vaginal bleeding, leakage of fluid, or dysuria. Feeling well, no complaints. Good movement, No contractions O: See flow sheet Gen: No apparent distress Abd: Gravid, nontender NST reactive VTX by US GBS collected- PCN allergy ASSESSMENT/PLAN: 1. 36 weeks gestation of ([facility]) - ICD9: V22.2, ICD10: Z3A.36 (primary diagnosis) - URINE OB DIP B/O - ROUTINE, GROUP B STREPTOCOCCUS BY PCR 2. Encounter for supervision of high risk in third trimester, antepartum ([facility]) - ICD9: V23.9, ICD10: O09.93 - URINE OB DIP B/O - ROUTINE, GROUP B STREPTOCOCCUS BY PCR 3. Supervision of high risk in third trimester ([facility]) - ICD9: V23.9, ICD10: O09.93 - URINE OB DIP B/O - ROUTINE, GROUP B STREPTOCOCCUS BY PCR Britney Vergara MD documented in this encounter [facility] 04-12-2025 Instructions Angy Jiménez LPN - 04/12/2025 10:38 AM EDT SEQUENTIAL SCREENINGS The [facility] offers sequential screenings for women who are interested in screenings for chromosomal abnormalities and certain defects during a . The sequential screen combines ultrasound and blood tests to determine the risk of chromosomal abnormalities, including Down's Syndrome (Trisomy 21) and Trisomy 18, as well as open neural tube defects including spina bifida. Ultrasound examination is performed between 11 weeks and 13 weeks gestational age. Blood tests are drawn after the ultrasound and again later in the between 15 and 21 weeks gestational age. Please let your physician know if you are interested in this testing. It will require an appointment with our refrigerator repair technician. This is not an ultrasound performed by a physician in our office during a routine visit. SIGNS AND SYMPTOMS OF LABOR 1. Contractions every 10 minutes or more often 2. Clear, pink, or brownish fluid (water) leaking from vagina 3. Feeling that baby is pushing down, pressure 4. Low, dull backache 5. Cramps that feel like a period 6. Cramps with or without diarrhea If you notice any of the above symptoms, contact our office at [phone] and ask to speak with a nurse. After hours, you can call doctors registry at [phone] OR call [facility] at [phone] and ask to have the doctor regional business development manager paged. If you consider this an emergency, dial 9-1-4 or go to your nearest emergency department. NEED HELP? Are you dealing with a violent or abusive relationship? Are you a victim of rape or sexual assult? Call [facility] ([place]) 24 hour Crisis Hotline: 263.318.4119 or 059-779-7457. MANUAL Your Guide to a Healthy manual is now on-line. Visit [email or web address] [email or web address] to download your free copy documented in this encounter [facility] 04-04-2025 Progress note Formatting of t his note might be different from the original. KJ - S: Digna denies LOF, contractions or vaginal bleeding. O: 35w4d, see flow sheet SENSITIVE EXAM: Sensitive exam not performed. A/P: Assessment & Plan Encounter for supervision of high risk in third trimester, antepartum (HCC) Orders: URINE OB DIP B/O Obesity affecting in third trimester, unspecified obesity type (HCC) NST's at 36 weeks Growth US ordered Orders: URINE OB DIP B/O Supervision of high risk in third trimester (HCC) Orders: URINE OB DIP B/O 35 weeks gestation of ([facility]) Orders: URINE OB DIP B/O Uterine size-date discrepancy, third trimester ([facility]) Orders: OBSTETRIC ULTRASOUND WHI; Future Reviewed PTL & FM precautions Marianna De La Torre MD [facility] 04-04-2025 Miscellaneous Notes KJ - S: iDgna denies LOF, contractions or vaginal bleeding. O: 35w4d, see flow sheet SENSITIVE EXAM: Sensitive exam not performed. A/P: Assessment & Plan Encounter for supervision of high risk in third trimester, antepartum ([facility]) Orders: URINE OB DIP B/O Obesity affecting in third trimester, unspecified obesity type ([facility]) NST's at 36 weeks Growth US ordered Orders: URINE OB DIP B/O Supervision of high risk in third trimester ([facility]) Orders: URINE OB DIP B/O 35 weeks gestation of ([facility]) Orders: URINE OB DIP B/O Uterine size-date discrepancy, third trimester ([facility]) Orders: OBSTETRIC ULTRASOUND WHI; Future Reviewed PTL & FM precautions Marianna De La Torre MD documented in this encounter [facility] 04-04-2025 Instructions Treva Greenwood MA - 04/04/2025 2:00 PM EDT SEQUENTIAL SCREENINGS The [facility] offers sequential screenings for women who are interested in screenings for chromosomal abnormalities and certain defects during a . The sequential screen combines ultrasound and blood tests to determine the risk of chromosomal abnormalities, including Down's Syndrome (Trisomy 21) and Trisomy 18, as well as open neural tube defects including spina bifida. Ultrasound examination is performed between 11 weeks and 13 weeks gestational age. Blood tests are drawn after the ultrasound and again later in the between 15 and 21 weeks gestational age. Please let your physician know if you are interested in this testing. It will require an appointment with our refrigerator repair technician. This is not an ultrasound performed by a physician in our office during a routine visit. SIGNS AND SYMPTOMS OF LABOR 1. Contractions every 10 minutes or more often 2. Clear, pink, or brownish fluid (water) leaking from vagina 3. Feeling that baby is pushing down, pressure 4. Low, dull backache 5. Cramps that feel like a period 6. Cramps with or without diarrhea If you notice any of the above symptoms, contact our office at [phone] and ask to speak with a nurse. After hours, you can call doctors registry at [phone] OR call [facility] at [phone] and ask to have the doctor regional business development manager paged. If you consider this an emergency, dial 9-1-3 or go to your nearest emergency department. NEED HELP? Are you dealing with a violent or abusive relationship? Are you a victim of rape or sexual assult? Call [facility] ([place]) 24 hour Crisis Hotline: 666.183.4425 or 628-432-4529. MANUAL Your Guide to a Healthy manual is now on-line. Visit [email or web address] [email or web address] to download your free copy documented in this encounter [facility] 03-27-2025 Progress note Formatting of t his note might be different from the original. Patient updated on other labs that this was negative [facility] 03-27-2025 Miscellaneous Notes Patient updated on other labs that this was negative documented in this encounter [facility] 03-24-2025 Instructions Keyla Garsia APRN.CNP - 03/24/2025 1:29 PM EDT Continue prevacid, do it for 14 days straight if symptoms continues Get your labs drawn on your way out documented in this encounter [facility] 03-24-2025 History of Present illness Narrative This is a 29 year old female who presents today with: Digna Sykes is a 29-year-old female, currently , presenting with a persistent sore throat. Encounter note 03/24: Your strep test was negative, and it's concerning that your sore throat is worsening. Since it's been 8 days and nothing seems to help, it would be a good idea to schedule an appointment to discuss this further. You can book a visit through [facility] or calling [phone] and we can address everything during that appointment. Nae James MA 03/24/25 8:29 AM Good morning, I came in to your office last Thursday for a cough and sore throat. The strep test came back negative. The cough has down but the sore throat has gotten worse and doesn t seem to be improving. I ve tried everything from allergy meds, pepcid (in case of silent reflux), and every natural remedy and nothing seems to help it. I talked to my OB yesterday and she said to send you a message. It s going on 8 days with this severe sore throat and i m not sure if i should continue to see if it improves or come back in. Thank you. HISTORY OF PRESENT ILLNESS: Sore Throat: - Persistent sore throat x8 days, initially localized to one side, now involving the entire throat with a tight sensation. - Describes pain as swallowing glass. - Aggravated by talking and swallowing. - Negative rapid strep test performed in-office. - No visible abnormalities in the throat upon self-examination. - Denies chest pain or dyspnea. - No known family history of thyroid issues. - Initially frequent cough , now reduced, worse with excessive talking or dry throat - Currently , due May 05. - Reports back pain, managed with behavioral health care manager. - Denies third trimester nausea. - Denies significant acid reflux, occasional use of Tums PRN. - Taking prevacid, tried pepcid for suspected silent reflux, with no improvement. - Denies SOB, except when walking up stairs. - No known family history of thyroid issues. Environmental Exposure: - Home renovation ongoing, with exposure to drywall and dust. - Using a humidifier at home. PAST MEDICAL HISTORY: PAST MEDICAL HISTORY Diagnosis Date Dysmenorrhea 07/12/2015 Family history of arrhythmia 04/18/[address] Loo NEGATIVE HISTORY OF 04/17/2011 normal color vision with uncertain dates in first trimester (HCC) 09/22/2024 September 22, 2024 POCUS not consistent with LMP. Confirm PAZ with NT. Jeff Oquendo APRN.REIMBURSEMENT DIRECTOR PAST SURGICAL HISTORY Procedure Laterality Date PAST SURGICAL HISTORY OF 05/2017 wisdom teeth extraction TONSILLECTOMY PRIMARY/SECONDARY <AGE 12 Tonsillectomy ALLERGIES Amoxicillin and Penicillins MEDICATIONS Current Outpatient Medications Medication Sig aspirin, enteric coated (ECOTRIN LOW STRENGTH) 81 mg EC tablet Take 1 tablet by mouth once daily. PNV no.95/ferrous fum/folic ac ( ORAL) Take by mouth. ondansetron orally disintegrating (ZOFRAN ODT) 4 mg disintegrating tablet Take 1 tablet by mouth every 8 hours as needed for nausea/vomiting. acyclovir (ZOVIRAX) 800 mg tablet Take 1 tablet by mouth three times a day. Take at first signs of cold sore outbreak x 5-7 days. No current facility-administered medications for this visit. FAMILY HISTORY Problem Relation Age of Onset No Known Problems Mother Heart Father PVCs No Known Problems Sister No Known Problems Sister No Known Problems Brother Cancer Maternal Grandmother Pancreatic Heart Maternal Grandfather arrythmia--has defibrillator COPD Paternal Grandmother Emphysema Paternal Grandmother Heart Paternal Grandfather fast heart pacemaker Diabetes Paternal Grandfather Heart Maternal Uncle 46 congenital, CAD Alzheimer's Disease Other P Great-Uncle Social History Tobacco Use Smoking status: Never Smokeless tobacco: Never Vaping Use Vaping status: Never Used Substance Use Topics Alcohol use: Not Currently Drug use: No REVIEW OF SYSTEMS Ears/Nose/Mouth/Throat: (+) sore throat, (+) painful swallowing, (+) throat tightness, (+) excessive salivation Cardiovascular: (-) chest pain Respiratory: (+) cough, (-) shortness of breath Gastrointestinal: (-) heartburn, (-) nausea Musculoskeletal: (+) back pain EXAM: BP 120/78 (BP Site: Left Arm, BP Position: Sitting, BP Cuff Size: Large Adult) Pulse 101 Resp 12 Wt 124.1 kg (273 lb 9.6 oz) LMP 07/29/2024 SpO2 96% BMI 41.47 kg/m PHYSICAL EXAM: General Appearance: Well appearing, alert, in no acute distress, well-hydrated, well nourished.. Oropharynx: Lips, mucosa, and tongue normal, teeth and gums normal, oropharynx normal. Neck: Supple, no adenopathy; thyroid symmetric, normal size, no bruits. Heart: RRR without murmur, gallop, or rubs. No ectopy. ASSESSMENT/PLAN: 1. Sore throat - ICD9: 462, ICD10: J02.9 (primary diagnosis) - THYROID STIMULATING HORMONE - COMPLETE BLOOD COUNT AND DIFFERENTIAL - BACTERIAL CULTURE, THROAT - T3, FREE - T4 FREE/FREE THYROXINE 2. Acute cough - ICD9: 786.2, ICD10: R05.1 - THYROID STIMULATING HORMONE - COMPLETE BLOOD COUNT AND DIFFERENTIAL - BACTERIAL CULTURE, THROAT - T3, FREE - T4 FREE/FREE THYROXINE 3. Dysphagia, unspecified type - ICD9: 787.20, ICD10: R13.10 - THYROID STIMULATING HORMONE - COMPLETE BLOOD COUNT AND DIFFERENTIAL - BACTERIAL CULTURE, THROAT - T3, FREE - T4 FREE/FREE THYROXINE Continue prevacid daily as it may take time to work if its reflux Get labs done, can decide then if further treatment needed Drink plenty of water Discussed treatment plan and patient voices understanding. Patient's questions answered appropriately. Medications and potential side effects were discussed and patient voices understanding. Return to the office as scheduled or as needed for worsening/no improvement. Keyla Garsia APRN.REIMBURSEMENT DIRECTOR Recording using [employer] software for draft documentation of the visit was discussed with the patient/authorized medical device sales representative; all questions welcomed and answered. Patient/authorized medical device sales representative agreed to proceed documented in this encounter [facility] 03-24-2025 Note HNO ID: [id number] Author: KEYLA GARSIA APRN.REIMBURSEMENT DIRECTOR Service: ? Author Type: Nurse Practitioner Type: Progress Notes Filed: 03/24/2025 17:39 Note Text: This is a 29 year old female who presents today with: Digna Sykes is a 29-year-old female, currently , presenting with a persistent sore throat. Encounter note 03/24: Your strep test was negative, and it's concerning that your sore throat is worsening. Since it's been 8 days and nothing seems to help, it would be a good idea to schedule an appointment to discuss this further. You can book a visit through [facility] or calling [phone] and we can address everything during that appointment. Naeayala James MA 03/24/25 8:29 AM Good morning, I came in to your office last Thursday for a cough and sore throat. The strep test came back negative. The cough has down but the sore throat has gotten worse and doesn?t seem to be improving. I?ve tried everything from allergy meds, pepcid (in case of silent reflux), and every natural remedy and nothing seems to help it. I talked to my OB yesterday and she said to send you a message. It?s going on 8 days with this severe sore throat and i?m not sure if i should continue to see if it improves or come back in. Thank you. HISTORY OF PRESENT ILLNESS: Sore Throat: - Persistent sore throat x8 days, initially localized to one side, now involving the entire throat with a tight sensation. - Describes pain as swallowing glass. - Aggravated by talking and swallowing. - Negative rapid strep test performed in-office. - No visible abnormalities in the throat upon self-examination. - Denies chest pain or dyspnea. - No known family history of thyroid issues. - Initially frequent cough , now reduced, worse with excessive talking or dry throat - Currently , due May 05. - Reports back pain, managed with behavioral health care manager. - Denies third trimester nausea. - Denies significant acid reflux, occasional use of Tums PRN. - Taking prevacid, tried pepcid for suspected silent reflux, with no improvement. - Denies SOB, except when walking up stairs. - No known family history of thyroid issues. Environmental Exposure: - Home renovation ongoing, with exposure to drywall and dust. - Using a humidifier at home. PAST MEDICAL HISTORY: PAST MEDICAL HISTORY Diagnosis Date Dysmenorrhea 07/12/2015 Family history of arrhythmia 04/18/[address] Loo NEGATIVE HISTORY OF 04/17/2011 normal color vision with uncertain dates in first trimester (HCC) 09/22/2024 September 22, 2024 POCUS not consistent with LMP. Confirm PAZ with NT. Jeff Oquendo APRN.REIMBURSEMENT DIRECTOR PAST SURGICAL HISTORY Procedure Laterality Date PAST SURGICAL HISTORY OF 05/2017 wisdom teeth extraction TONSILLECTOMY PRIMARY/SECONDARY Tonsillectomy ALLERGIES Amoxicillin and Penicillins MEDICATIONS Current Outpatient Medications Medication Sig aspirin, enteric coated (ECOTRIN LOW STRENGTH) 81 mg EC tablet Take 1 tablet by mouth once daily. PNV no.95/ferrous fum/folic ac ( ORAL) Take by mouth. ondansetron orally disintegrating (ZOFRAN ODT) 4 mg disintegrating tablet Take 1 tablet by mouth every 8 hours as needed for nausea/vomiting. acyclovir (ZOVIRAX) 800 mg tablet Take 1 tablet by mouth three times a day. Take at first signs of cold sore outbreak x 5-7 days. No current facility-administered medications for this visit. FAMILY HISTORY Problem Relation Age of Onset No Known Problems Mother Heart Father PVCs No Known Problems Sister No Known Problems Sister No Known Problems Brother Cancer Maternal Grandmother Pancreatic Heart Maternal Grandfather arrythmia--has defibrillator COPD Paternal Grandmother Emphysema Paternal Grandmother Heart Paternal Grandfather fast heart pacemaker Diabetes Paternal Grandfather Heart Maternal Uncle 46 congenital, CAD Alzheimer's Disease Other P Great-Uncle Social History Tobacco Use Smoking status: Never Smokeless tobacco: Never Vaping Use Vaping status: Never Used Substance Use Topics Alcohol use: Not Currently Drug use: No REVIEW OF SYSTEMS Ears/Nose/Mouth/Throat: (+) sore throat, (+) painful swallowing, (+) throat tightness, (+) excessive salivation Cardiovascular: (-) chest pain Respiratory: (+) cough, (-) shortness of breath Gastrointestinal: (-) heartburn, (-) nausea Musculoskeletal: (+) back pain EXAM: BP 120/78 (BP Site: Left Arm, BP Position: Sitting, BP Cuff Size: Large Adult) Pulse 101 Resp 12 Wt 124.1 kg (273 lb 9.6 oz) LMP 07/29/2024 SpO2 96% BMI 41.47 kg/m? PHYSICAL EXAM: General Appearance: Well appearing, alert, in no acute distress, well-hydrated, well nourished.. Oropharynx: Lips, mucosa, and tongue normal, teeth and gums normal, oropharynx normal. Neck: Supple, no adenopathy; thyroid symmetric, normal size, no bruits. Heart: RRR without murmur, gall (more content not included)... [facility] 03-23-2025 Progress note Formatting of t his note might be different from the original. KJ - S: Digna denies LOF, contractions or vaginal bleeding. She reports a persistent sore throat. O: 33w6d, see flow sheet SENSITIVE EXAM: Sensitive exam not performed. A/P: Assessment & Plan Obesity affecting in third trimester, unspecified obesity type (HCC) Ordered NSTs at 36 weeks Orders: URINE OB DIP B/O Excessive weight gain in , third trimester (HCC) Orders: URINE OB DIP B/O Supervision of high risk in third trimester (HCC) Orders: URINE OB DIP B/O 33 weeks gestation of (HCC) Orders: URINE OB DIP B/O Sore throat - recommend primary care follow up. Reviewed PTL & FM precautions Marianna De La Torre MD [facility] 03-23-2025 Miscellaneous Notes KJ - S: Digna denies LOF, contractions or vaginal bleeding. She reports a persistent sore throat. O: 33w6d, see flow sheet SENSITIVE EXAM: Sensitive exam not performed. A/P: Assessment & Plan Obesity affecting in third trimester, unspecified obesity type (HCC) Ordered NSTs at 36 weeks Orders: URINE OB DIP B/O Excessive weight gain in , third trimester (HCC) Orders: URINE OB DIP B/O Supervision of high risk in third trimester (HCC) Orders: URINE OB DIP B/O 33 weeks gestation of (HCC) Orders: URINE OB DIP B/O Sore throat - recommend primary care follow up. Reviewed PTL & FM precautions Marianna De La Torre MD documented in this encounter [facility] 03-23-2025 Instructions Dariela Vasquez MA - 03/23/2025 3:46 PM EDT SEQUENTIAL SCREENINGS The [facility] offers sequential screenings for women who are interested in screenings for chromosomal abnormalities and certain defects during a . The sequential screen combines ultrasound and blood tests to determine the risk of chromosomal abnormalities, including Down's Syndrome (Trisomy 21) and Trisomy 18, as well as open neural tube defects including spina bifida. Ultrasound examination is performed between 11 weeks and 13 weeks gestational age. Blood tests are drawn after the ultrasound and again later in the between 15 and 21 weeks gestational age. Please let your physician know if you are interested in this testing. It will require an appointment with our refrigerator repair technician. This is not an ultrasound performed by a physician in our office during a routine visit. SIGNS AND SYMPTOMS OF LABOR 1. Contractions every 10 minutes or more often 2. Clear, pink, or brownish fluid (water) leaking from vagina 3. Feeling that baby is pushing down, pressure 4. Low, dull backache 5. Cramps that feel like a period 6. Cramps with or without diarrhea If you notice any of the above symptoms, contact our office at [phone] and ask to speak with a nurse. After hours, you can call doctors registry at [phone] OR call [facility] at [phone] and ask to have the doctor regional business development manager paged. If you consider this an emergency, dial [phone] or go to your nearest emergency department. NEED HELP? Are you dealing with a violent or abusive relationship? Are you a victim of rape or sexual assult? Call [facility] ([place]) 24 hour Crisis Hotline: 408.916.7476 or 945-688-2812. MANUAL Your Guide to a Healthy manual is now on-line. Visit [email or web address] to download your free copy documented in this encounter [facility] 03-15-2025 Note HNO ID: [id number] Author: SUE ARECHIGA APRN.REIMBURSEMENT DIRECTOR Service: ? Author Type: Nurse Practitioner Type: Progress Notes Filed: 03/15/2025 12:02 Note Text: 03/15/2025 Patient presents with: Cough: X3 weeks with congestion and sore throat that comes and goes Recording using [employer] software for draft documentation of the visit was discussed with the patient/authorized medical device sales representative; all questions welcomed and answered. Patient/authorized medical device sales representative agreed to proceed SUBJECTIVE: This is a 29 year old that is here today for Above Complaints.. Cough: - Onset 3 weeks ago, initially presenting with headache and sore throat, followed by nasal congestion and cough. - Nasal congestion has resolved, but cough persists. - encouraged visit due to duration of symptoms. - Denies dyspnea or breathing difficulties. - Productive cough with white mucus, initially green. - Tried Mucinex for one week with no relief. - Denies smoking history or asthma. Sore Throat: - Intermittent sore throat, localized to one spot. - Pain varies, sometimes severe enough to cause discomfort when swallowing. - Pain is transient, disappearing and reappearing without a clear pattern. - Denies sinus pain or pressure through the ear. - Denies seasonal allergies, but speculates -related changes or environmental factors (e.g., wildfire smoke) may contribute. : - Currently . - Experiences typical -related heat sensations at night, but denies fevers or chills. - Denies nausea, vomiting, or diarrhea associated with current symptoms. - Expresses uncertainty about safe medications during . PAST MEDICAL HISTORY Diagnosis Date Dysmenorrhea 07/12/2015 Family history of arrhythmia 04/18/[address] Loo NEGATIVE HISTORY OF 04/17/2011 normal color vision with uncertain dates in first trimester (HCC) 09/22/2024 September 22, 2024 POCUS not consistent with LMP. Confirm PAZ with NT. Jeff Oquendo APRN.REIMBURSEMENT DIRECTOR ALLERGIES Amoxicillin and Penicillins MEDICATIONS Current Outpatient Medications Medication Sig aspirin, enteric coated (ECOTRIN LOW STRENGTH) 81 mg EC tablet Take 1 tablet by mouth once daily. PNV no.95/ferrous fum/folic ac ( ORAL) Take by mouth. ondansetron orally disintegrating (ZOFRAN ODT) 4 mg disintegrating tablet Take 1 tablet by mouth every 8 hours as needed for nausea/vomiting. acyclovir (ZOVIRAX) 800 mg tablet Take 1 tablet by mouth three times a day. Take at first signs of cold sore outbreak x 5-7 days. No current facility-administered medications for this visit. Medications and allergies reviewed by this provider. SOCIAL HISTORY Social History Tobacco Use Smoking status: Never Smokeless tobacco: Never Vaping Use Vaping status: Never Used Substance Use Topics Alcohol use: Not Currently Drug use: No REVIEW OF SYSTEMS All other reviewed and negative other than HPI. OBJECTIVE: BP 118/76 Pulse 114 Temp 36.8 ?C (98.3 ?F) Resp 20 Wt 123 kg (271 lb 3.2 oz) LMP 07/29/2024 SpO2 98% BMI 41.10 kg/m? . Vital signs reviewed by this provider. GENERAL: NAD, alert and oriented. SKIN: Unremarkable, no rash or skin lesions. HEAD: Normocephalic. EYES: conjunctiva clear. EARS: External ears normal, canals clear, TM's normal. NOSE/SINUSES: Nares normal. Septum midline. OROPHARYNX: Lips, mucosa, and tongue normal, good dentition. No oral lesions noted. No swelling noted. NECK: Supple, no lymphadenopathy LUNGS: Clear to auscultation bilaterally, no wheezes/rhonchi/rales. Dry cough. Able to speak in full sentences without difficulty HEART: Regular rate and rhythm, no murmurs. No ectopy. Depression Screening Never done Anxiety Screening Never done Covid-19 Vaccine( season) Never done Influenza Vaccine(Season Ended) due on 06/05/2025 Cervical Cancer Screening due on 11/19/2026 DTaP,Tdap,Td Vaccine(8 - Td or Tdap) due on 03/03/2032 Hepatitis B Vaccine Completed RSV Vaccine(No Doses Required) Completed Hepatitis C Screening Completed HIV Screening Completed 1. Sore throat (J02.9) 2. Acute cough (R05.1) - Onset of symptoms began approximately three weeks ago with headache and sore throat, followed by nasal congestion and cough. Sore throat is intermittent and localized, with episodes of pain during swallowing. - Lungs clear to auscultation; no evidence of pneumonia on physical exam. - Negative rapid strep test. - Educated on the potential for post-viral cough to persist for up to six weeks. - Recommended [id number] Robitussin (alcohol-free) for cough management. - Advised use of Flonase nasal spray, two sprays per nostril, aiming outwards, to address potential post-nasal drip. - Discussed the use of Zyrtec, which is acceptable during , to help with any allergic component. - Patient understands and agrees with the treatment plan. Sue Samuels (more content not included)... [facility] 03[facility] History of Present illness Narrative 03/15/2025 Patient presents with: Cough: X3 weeks with congestion and sore throat that comes and goes Recording using ambient [employer] software for draft documentation of the visit was discussed with the patient/authorized medical device sales representative; all questions welcomed and answered. Patient/authorized medical device sales representative agreed to proceed SUBJECTIVE: This is a 29 year old that is here today for Above Complaints.. Cough: - Onset 3 weeks ago, initially presenting with headache and sore throat, followed by nasal congestion and cough. - Nasal congestion has resolved, but cough persists. - encouraged visit due to duration of symptoms. - Denies dyspnea or breathing difficulties. - Productive cough with white mucus, initially green. - Tried Mucinex for one week with no relief. - Denies smoking history or asthma. Sore Throat: - Intermittent sore throat, localized to one spot. - Pain varies, sometimes severe enough to cause discomfort when swallowing. - Pain is transient, disappearing and reappearing without a clear pattern. - Denies sinus pain or pressure through the ear. - Denies seasonal allergies, but speculates -related changes or environmental factors (e.g., wildfire smoke) may contribute. : - Currently . - Experiences typical -related heat sensations at night, but denies fevers or chills. - Denies nausea, vomiting, or diarrhea associated with current symptoms. - Expresses uncertainty about safe medications during . PAST MEDICAL HISTORY Diagnosis Date Dysmenorrhea 07/12/2015 Family history of arrhythmia 04/18/[address] Loo NEGATIVE HISTORY OF 04/17/2011 normal color vision with uncertain dates in first trimester (HCC) 09/22/2024 September 22, 2024 POCUS not consistent with LMP. Confirm PAZ with NT. Jeff Oquendo APRN.REIMBURSEMENT DIRECTOR ALLERGIES Amoxicillin and Penicillins MEDICATIONS Current Outpatient Medications Medication Sig aspirin, enteric coated (ECOTRIN LOW STRENGTH) 81 mg EC tablet Take 1 tablet by mouth once daily. PNV no.95/ferrous fum/folic ac ( ORAL) Take by mouth. ondansetron orally disintegrating (ZOFRAN ODT) 4 mg disintegrating tablet Take 1 tablet by mouth every 8 hours as needed for nausea/vomiting. acyclovir (ZOVIRAX) 800 mg tablet Take 1 tablet by mouth three times a day. Take at first signs of cold sore outbreak x 5-7 days. No current facility-administered medications for this visit. Medications and allergies reviewed by this provider. SOCIAL HISTORY Social History Tobacco Use Smoking status: Never Smokeless tobacco: Never Vaping Use Vaping status: Never Used Substance Use Topics Alcohol use: Not Currently Drug use: No REVIEW OF SYSTEMS All other reviewed and negative other than HPI. OBJECTIVE: BP 118/76 Pulse 114 Temp 36.8 C (98.3 F) Resp 20 Wt 123 kg (271 lb 3.2 oz) LMP 07/29/2024 SpO2 98% BMI 41.10 kg/m . Vital signs reviewed by this provider. GENERAL: NAD, alert and oriented. SKIN: Unremarkable, no rash or skin lesions. HEAD: Normocephalic. EYES: conjunctiva clear. EARS: External ears normal, canals clear, TM's normal. NOSE/SINUSES: Nares normal. Septum midline. OROPHARYNX: Lips, mucosa, and tongue normal, good dentition. No oral lesions noted. No swelling noted. NECK: Supple, no lymphadenopathy LUNGS: Clear to auscultation bilaterally, no wheezes/rhonchi/rales. Dry cough. Able to speak in full sentences without difficulty HEART: Regular rate and rhythm, no murmurs. No ectopy. Depression Screening Never done Anxiety Screening Never done Covid-19 Vaccine( season) Never done Influenza Vaccine(Season Ended) due on 06/05/2025 Cervical Cancer Screening due on 11/19/2026 DTaP,Tdap,Td Vaccine(8 - Td or Tdap) due on 03/03/2032 Hepatitis B Vaccine Completed RSV Vaccine(No Doses Required) Completed Hepatitis C Screening Completed HIV Screening Completed 1. Sore throat (J02.9) 2. Acute cough (R05.1) - Onset of symptoms began approximately three weeks ago with headache and sore throat, followed by nasal congestion and cough. Sore throat is intermittent and localized, with episodes of pain during swallowing. - Lungs clear to auscultation; no evidence of pneumonia on physical exam. - Negative rapid strep test. - Educated on the potential for post-viral cough to persist for up to six weeks. - Recommended crlk-zgz-fxolupo Robitussin (alcohol-free) for cough management. - Advised use of Flonase nasal spray, two sprays per nostril, aiming outwards, to address potential post-nasal drip. - Discussed the use of Zyrtec, which is acceptable during , to help with any allergic component. - Patient understands and agrees with the treatment plan. Sue Arechiga APRN.REIMBURSEMENT DIRECTOR Prescription instructions reviewed with patient as applicable. Patient advised if symptoms do not improve or if symptoms worsen sooner, to contact their primary care physician. Potential red flag symptoms discussed with the patient. Reviewed appropriate action plan to take if red flag symptoms occur. Patient agreeable to treatment plan. Medical Decision Making: Problems: Low: Acute, uncomplicated illness or injury Risk: Low: Low risk from testing/treatment Medical Decision Making Level: 3 - Low documented in this encounter [facility] 03-15-2025 Telephone encounter Note Patient calling in with request for evaluation of cough and cold sx's that she has had for 20 days. Pt states she is 33 weeks . Symptoms include productive cough, nasal congestion and sore throat. Denies fever, chills, sweats, SOB, wheezing, headache, earache, body aches, or N/V/D. No severe sx's. Appt made for today with available provider. Starla De Jesus RN [facility] 03-15-2025 Miscellaneous Notes Patient calling in with request for evaluation of cough and cold sx's that she has had for 20 days. Pt states she is 33 weeks . Symptoms include productive cough, nasal congestion and sore throat. Denies fever, chills, sweats, SOB, wheezing, headache, earache, body aches, or N/V/D. No severe sx's. Appt made for today with available provider. Starla De Jesus RN documented in this encounter [facility] 03-09-2025 Note Indication Evaluation of growth Discrepancy between uterine size and clinical dates, Maternal obesity, BMI >30 Impression - Single, live, intrauterine . - presentation is cephalic. - The biometry is consistent with the assigned gestational dating. - The EFW is 2176 g, at the 84%. AC is at the >99%. - The amniotic fluid volume is normal amount with an MVP of 4.7 cm and an ALEKSANDRA of 13 cm. - The placenta is anterior, fundal. - No malformations visualized on a limited survey as detailed below. Recommendations Additional follow-up as clinically indicated. Maternal Assessment Height 173 cm Height (ft) 5 ft Height (in) 8 in Physical Exam Initial weight (lb) 228 lb Initial BMI 34.67 kg/m Maternal assessment other: 1 Para 0 REMOTE READ Method Transabdominal ultrasound examination Jansen . Number of fetuses: 1 Dating LMP on: 07/29/2024 GA by LMP 31 w + 6 d PAZ by LMP: 05/05/2025 GA by prior assessment 31 w + 6 d PAZ by prior assessment: 05/05/2025 Previous Ultrasound on: 09/22/2024 Type of prior assessment: CRL U/S measurement at prior assessment date 13.2 mm GA by previous U/S 31 w + 4 d PAZ by previous Ultrasound: 05/07/2025 Ultrasound examination on: 03/09/2025 GA by U/S based upon: AC, BPD, Femur, HC GA by U/S 32 w + 6 d PAZ by U/S: 04/28/2025 Assigned: based on the LMP, selected on 10/27/2024 Assigned GA 31 w + 6 d Assigned PAZ: 05/05/2025 General Evaluation Cardiac activity present. FHR 139 bpm. movements: present. Presentation: cephalic Placenta: Placental site: anterior, fundal Umbilical cord: Cord vessels: 3 vessel cord Amniotic fluid: Amount of AF: normal amount. MVP 4.7 cm. ALEKSANDRA 13.0 cm. Q1 3.5 cm, Q2 4.7 cm, Q3 2.1 cm, Q4 2.8 cm Growth Overview Exam date GA BPD (mm) HC (mm) AC (mm) FL (mm) HL (mm) EFW (g) 12/15/2024 19w 6d 49.4 88% 175.1 55% 149.2 55% 30.3 46% 30.1 56% 315 43% 03/09/2025 31w 6d 83.5 87% 300.6 62% 311.7 >99% 57.6 15% 2176 84% Biometry Standard BPD 83.5 mm 33w 4d 87% Hadlock OFD 104.4 mm 30w 6d 41% Nicolaides HC 300.6 mm 32w 3d 62% Jatin AC 311.7 mm 35w 1d >99% Hadlock Femur 57.6 mm 30w 1d 15% Jatin EFW 2,176 g 33w 0d 84% Hadlock EFW (lb) 4 lb EFW (oz) 13 oz EFW by: Hadlock (HC-AC-FL) [employer]r 6.6 mm Extremities / Bony Struc FL / HC 0.19 Other Structures FHR 139 bpm Anatomy Lateral ventricles: normal Cavum septi pellucidi: normal Cerebellum: normal Cisterna magna: normal 4-chamber view: normal RVOT view: normal LVOT view: normal 3-vessel view: normal Heart / Thorax Situs: situs solitus (normal) Diaphragm: normal Stomach: normal Kidneys: normal Bladder: normal sex: female Wants to know sex: yes Performed By: Leonie Vargas RDMS, RVT Read By: Amy Pickard M.D. [facility] 03-09-2025 Progress note Formatting of t his note might be different from the original. S: Digna Sykes is a 29 year old female who presents at 31.6 weeks gestation for a routine visit. Just completed growth US. Awaiting final results. Positive movements. Denies headache, visual changes, chest pain, shortness of breath, vaginal bleeding, leakage of fluid, or dysuria. Feeling well, no complaints. O: See flow sheet Gen: No apparent distress Abd: Gravid, nontender ASSESSMENT/PLAN: 1. Obesity affecting in third trimester, unspecified obesity type 2. Penicillin allergy 3. Excessive weight gain in , third trimester 4. Supervision of high risk in third trimester 5. 31 weeks gestation of - 1 hour GCT normal - Declines PCN allergy testing - Continue vitamin and ASA - Pregravid BMI 34 - Total weight gain is 41 lbs. - PTL precautions and kick counts reviewed - RTO 2 weeks or sooner if needed Gina Muñiz APRN.CNM [facility] 03-09-2025 Miscellaneous Notes S: Digna Sykes is a 29 year old female who presents at 31.6 weeks gestation for a routine visit. Just completed growth US. Awaiting final results. Positive movements. Denies headache, visual changes, chest pain, shortness of breath, vaginal bleeding, leakage of fluid, or dysuria. Feeling well, no complaints. O: See flow sheet Gen: No apparent distress Abd: Gravid, nontender ASSESSMENT/PLAN: 1. Obesity affecting in third trimester, unspecified obesity type 2. Penicillin allergy 3. Excessive weight gain in , third trimester 4. Supervision of high risk in third trimester 5. 31 weeks gestation of - 1 hour GCT normal - Declines PCN allergy testing - Continue vitamin and ASA - Pregravid BMI 34 - Total weight gain is 41 lbs. - PTL precautions and kick counts reviewed - RTO 2 weeks or sooner if needed Gina Muñiz APRN.CNM documented in this encounter [facility] 03-09-2025 Toy Sharp MA - 03/09/2025 1:28 PM EDT SEQUENTIAL SCREENINGS The [facility] offers sequential screenings for women who are interested in screenings for chromosomal abnormalities and certain defects during a . The sequential screen combines ultrasound and blood tests to determine the risk of chromosomal abnormalities, including Down's Syndrome (Trisomy 21) and Trisomy 18, as well as open neural tube defects including spina bifida. Ultrasound examination is performed between 11 weeks and 13 weeks gestational age. Blood tests are drawn after the ultrasound and again later in the between 15 and 21 weeks gestational age. Please let your physician know if you are interested in this testing. It will require an appointment with our refrigerator repair technician. This is not an ultrasound performed by a physician in our office during a routine visit. SIGNS AND SYMPTOMS OF LABOR 1. Contractions every 10 minutes or more often 2. Clear, pink, or brownish fluid (water) leaking from vagina 3. Feeling that baby is pushing down, pressure 4. Low, dull backache 5. Cramps that feel like a period 6. Cramps with or without diarrhea If you notice any of the above symptoms, contact our office at [phone] and ask to speak with a nurse. After hours, you can call doctors registry at [phone] OR call [facility] at [phone] and ask to have the doctor regional business development manager paged. If you consider this an emergency, dial [phone] or go to your nearest emergency department. NEED HELP? Are you dealing with a violent or abusive relationship? Are you a victim of rape or sexual assult? Call [facility] ([place]) 24 hour Crisis Hotline: 745.849.1293 or 701-692-4766. MANUAL Your Guide to a Healthy manual is now on-line. Visit [email or web address] to download your free copy documented in this encounter [facility] 02-10-2025 Progress note Formatting of t his note might be different from the original. S: Digna Sykes is a 29 year old female who presents at 28 weeks gestation for a routine visit. Just completed GCT. Positive movements. Some increased acid reflux that resolves with TUMS and/ or Pepcid. Denies headache, visual changes, chest pain, shortness of breath, vaginal bleeding, leakage of fluid, or dysuria. Feeling well, no complaints. O: See flow sheet Gen: No apparent distress Abd: Gravid, non tender S=D, measuring 2 weeks ahead ASSESSMENT/PLAN: 1. Supervision of high risk in third trimester 2. Other obesity affecting in third trimester 3. 28 weeks gestation of - 1 hour GCT, CBC, and RPR today - Rh positive - TDAP Declined - LARC form reviewed and signed. Patient declines- planning condoms - Depression screen negative - Opioid screen negative - plan form discussed and given to patient. Patient desires unmedicated , - Suggested CBE classes - PCN allergy- patient declines allergy testing at this time - Continue vitamin and ASA nightly - PTL precautions and kick counts reviewed - RTO- 2 weeks or sooner if needed Gina Muñiz APRN.CNM [facility] 02-10-2025 Miscellaneous Notes S: Digna Sykes is a 29 year old female who presents at 28 weeks gestation for a routine visit. Just completed GCT. Positive movements. Some increased acid reflux that resolves with TUMS and/ or Pepcid. Denies headache, visual changes, chest pain, shortness of breath, vaginal bleeding, leakage of fluid, or dysuria. Feeling well, no complaints. O: See flow sheet Gen: No apparent distress Abd: Gravid, non tender S=D, measuring 2 weeks ahead ASSESSMENT/PLAN: 1. Supervision of high risk in third trimester 2. Other obesity affecting in third trimester 3. 28 weeks gestation of - 1 hour GCT, CBC, and RPR today - Rh positive - TDAP Declined - LARC form reviewed and signed. Patient declines- planning condoms - Depression screen negative - Opioid screen negative - plan form discussed and given to patient. Patient desires unmedicated , - Suggested CBE classes - PCN allergy- patient declines allergy testing at this time - Continue vitamin and ASA nightly - PTL precautions and kick counts reviewed - RTO- 2 weeks or sooner if needed Gina Muñiz APRN.CNM documented in this encounter [facility] 02-10-2025 Instructions Treva Greenwood MA - 02/10/2025 2:57 PM EDT SEQUENTIAL SCREENINGS The [facility] offers sequential screenings for women who are interested in screenings for chromosomal abnormalities and certain defects during a . The sequential screen combines ultrasound and blood tests to determine the risk of chromosomal abnormalities, including Down's Syndrome (Trisomy 21) and Trisomy 18, as well as open neural tube defects including spina bifida. Ultrasound examination is performed between 11 weeks and 13 weeks gestational age. Blood tests are drawn after the ultrasound and again later in the between 15 and 21 weeks gestational age. Please let your physician know if you are interested in this testing. It will require an appointment with our refrigerator repair technician. This is not an ultrasound performed by a physician in our office during a routine visit. SIGNS AND SYMPTOMS OF LABOR 1. Contractions every 10 minutes or more often 2. Clear, pink, or brownish fluid (water) leaking from vagina 3. Feeling that baby is pushing down, pressure 4. Low, dull backache 5. Cramps that feel like a period 6. Cramps with or without diarrhea If you notice any of the above symptoms, contact our office at [phone] and ask to speak with a nurse. After hours, you can call doctors registry at [phone] OR call [facility] at [phone] and ask to have the doctor regional business development manager paged. If you consider this an emergency, dial [phone] or go to your nearest emergency department. NEED HELP? Are you dealing with a violent or abusive relationship? Are you a victim of rape or sexual assult? Call [facility] ([place]) 24 hour Crisis Hotline: 248.126.9693 or 498-564-6257. MANUAL Your Guide to a Healthy manual is now on-line. Visit [email or web address] to download your free copy documented in this encounter [facility] 01-12-2025 Progress note Formatting of t his note might be different from the original. S: Digna Sykes is a 29 year old female who presents at 23 weeks gestation for a routine visit. Started feeling flutters. Occasional dizziness at times. Denies headache, visual changes, chest pain, shortness of breath, vaginal bleeding, leakage of fluid, or dysuria. Appetite normal. O: See flow sheet Gen: No apparent distress Abd: Gravid, nontender ASSESSMENT/PLAN: 1. Supervision of high risk in second trimester 2. Other obesity affecting in second trimester 3. 23 weeks gestation of 4. Screening for diabetes mellitus - Discussed The Fresh Test and how to obtain prior to GCT - Continue vitamin and ASA daily - RTO 4 weeks for KAEL with LABS Gina Muñiz APRN.CNM [facility] 01-12-2025 Miscellaneous Notes S: Digna Sykes is a 29 year old female who presents at 23 weeks gestation for a routine visit. Started feeling flutters. Occasional dizziness at times. Denies headache, visual changes, chest pain, shortness of breath, vaginal bleeding, leakage of fluid, or dysuria. Appetite normal. O: See flow sheet Gen: No apparent distress Abd: Gravid, nontender ASSESSMENT/PLAN: 1. Supervision of high risk in second trimester 2. Other obesity affecting in second trimester 3. 23 weeks gestation of 4. Screening for diabetes mellitus - Discussed The Fresh Test and how to obtain prior to GCT - Continue vitamin and ASA daily - RTO 4 weeks for KAEL with LABS Gina Muñiz APRN.CNM documented in this encounter [facility] 01-12-2025 Instructions Toy Edgar MA - 01/12/2025 4:08 PM EDT SEQUENTIAL SCREENINGS The [facility] offers sequential screenings for women who are interested in screenings for chromosomal abnormalities and certain defects during a . The sequential screen combines ultrasound and blood tests to determine the risk of chromosomal abnormalities, including Down's Syndrome (Trisomy 21) and Trisomy 18, as well as open neural tube defects including spina bifida. Ultrasound examination is performed between 11 weeks and 13 weeks gestational age. Blood tests are drawn after the ultrasound and again later in the between 15 and 21 weeks gestational age. Please let your physician know if you are interested in this testing. It will require an appointment with our refrigerator repair technician. This is not an ultrasound performed by a physician in our office during a routine visit. SIGNS AND SYMPTOMS OF LABOR 1. Contractions every 10 minutes or more often 2. Clear, pink, or brownish fluid (water) leaking from vagina 3. Feeling that baby is pushing down, pressure 4. Low, dull backache 5. Cramps that feel like a period 6. Cramps with or without diarrhea If you notice any of the above symptoms, contact our office at [phone] and ask to speak with a nurse. After hours, you can call doctors registry at [phone] OR call [facility] at [phone] and ask to have the doctor regional business development manager paged. If you consider this an emergency, dial [phone] or go to your nearest emergency department. NEED HELP? Are you dealing with a violent or abusive relationship? Are you a victim of rape or sexual assult? Call [facility] ([place]) 24 hour Crisis Hotline: 479.470.9903 or 339-934-7596. MANUAL Your Guide to a Healthy manual is now on-line. Visit [email or web address] to download your free copy documented in this encounter [facility] 12-15-2024 Progress note Formatting of t his note might be different from the original. SW- No pain, vb, lof. No FM yet. PE: Gen- NAD, well appearing Abd- ND See flowsheet A/p 19 wk gestation - Anatomy US today - Discussed upcoming expectations - Completed NIPT and NOB labs - RTO 4 wks Claude Saleh DO [facility] 12-15-2024 Miscellaneous Notes SW- No pain, vb, lof. No FM yet. PE: Gen- NAD, well appearing Abd- ND See flowsheet A/p 19 wk gestation - Anatomy US today - Discussed upcoming expectations - Completed NIPT and NOB labs - RTO 4 wks Calude Saleh DO documented in this encounter [facility] 12-15-2024 Ju Chan MA - 12/15/2024 2:26 PM EDT SEQUENTIAL SCREENINGS The [facility] offers sequential screenings for women who are interested in screenings for chromosomal abnormalities and certain defects during a . The sequential screen combines ultrasound and blood tests to determine the risk of chromosomal abnormalities, including Down's Syndrome (Trisomy 21) and Trisomy 18, as well as open neural tube defects including spina bifida. Ultrasound examination is performed between 11 weeks and 13 weeks gestational age. Blood tests are drawn after the ultrasound and again later in the between 15 and 21 weeks gestational age. Please let your physician know if you are interested in this testing. It will require an appointment with our refrigerator repair technician. This is not an ultrasound performed by a physician in our office during a routine visit. SIGNS AND SYMPTOMS OF LABOR 1. Contractions every 10 minutes or more often 2. Clear, pink, or brownish fluid (water) leaking from vagina 3. Feeling that baby is pushing down, pressure 4. Low, dull backache 5. Cramps that feel like a period 6. Cramps with or without diarrhea If you notice any of the above symptoms, contact our office at [phone] and ask to speak with a nurse. After hours, you can call doctors registry at [phone] OR call [facility] at [phone] and ask to have the doctor regional business development manager paged. If you consider this an emergency, dial 3-0-2 or go to your nearest emergency department. NEED HELP? Are you dealing with a violent or abusive relationship? Are you a victim of rape or sexual assult? Call [facility] ([facility] 24 hour Crisis Hotline: 494.434.2071 or 060-362-0672. MANUAL Your Guide to a Healthy manual is now on-line. Visit [email or web address] to download your free copy documented in this encounter [facility] 12-09-2024 Telephone encounter Note Order signed and faxed. Patti Jacinto RN [facility] 12-09-2024 Miscellaneous Notes Order signed and faxed. Patti Jacinto RN Received breast pump RX from [employer]. To KJ to sign. Britney Armstrong RN documented in this encounter [facility] 12-09-2024 Telephone encounter Note Received breast pump RX from [employer]. To KJ to sign. Britney Armstrong RN [facility] 11-24-2024 Progress note Formatting of t his note might be different from the original. S: Digna Sykes is a 29 year old female who presents at 16 weeks gestation for a routine visit. No movement to date. Has anterior placenta. N/V resolved. Some heartburn but no medication needed at this time. Denies headache, visual changes, chest pain, shortness of breath, vaginal bleeding, leakage of fluid, or dysuria. O: See flow sheet Gen: No apparent distress Abd: Gravid, nontend ASSESSMENT/PLAN: 1. 16 weeks gestation of 2. Supervision of high risk in second trimester 3. Other obesity affecting in second trimester - Continue vitamin and ASA daily - TUMS as needed - RTO 4 weeks for anatomy US and KAEL Muñiz APRN.CNM [facility] 11-24-2024 Miscellaneous Notes S: Digna Sykes is a 29 year old female who presents at 16 weeks gestation for a routine visit. No movement to date. Has anterior placenta. N/V resolved. Some heartburn but no medication needed at this time. Denies headache, visual changes, chest pain, shortness of breath, vaginal bleeding, leakage of fluid, or dysuria. O: See flow sheet Gen: No apparent distress Abd: Gravid, nontend ASSESSMENT/PLAN: 1. 16 weeks gestation of 2. Supervision of high risk in second trimester 3. Other obesity affecting in second trimester - Continue vitamin and ASA daily - TUMS as needed - RTO 4 weeks for anatomy US and KAEL Muñiz APRN.CNM documented in this encounter [facility] 11-24-2024 Instructions Toy Edgar MA - 11/24/2024 9:46 AM EST SEQUENTIAL SCREENINGS The [facility] offers sequential screenings for women who are interested in screenings for chromosomal abnormalities and certain defects during a . The sequential screen combines ultrasound and blood tests to determine the risk of chromosomal abnormalities, including Down's Syndrome (Trisomy 21) and Trisomy 18, as well as open neural tube defects including spina bifida. Ultrasound examination is performed between 11 weeks and 13 weeks gestational age. Blood tests are drawn after the ultrasound and again later in the between 15 and 21 weeks gestational age. Please let your physician know if you are interested in this testing. It will require an appointment with our refrigerator repair technician. This is not an ultrasound performed by a physician in our office during a routine visit. SIGNS AND SYMPTOMS OF LABOR 1. Contractions every 10 minutes or more often 2. Clear, pink, or brownish fluid (water) leaking from vagina 3. Feeling that baby is pushing down, pressure 4. Low, dull backache 5. Cramps that feel like a period 6. Cramps with or without diarrhea If you notice any of the above symptoms, contact our office at [phone] and ask to speak with a nurse. After hours, you can call doctors registry at [phone] OR call [facility] at [phone] and ask to have the doctor regional business development manager paged. If you consider this an emergency, dial 9-5 or go to your nearest emergency department. NEED HELP? Are you dealing with a violent or abusive relationship? Are you a victim of rape or sexual assult? Call [facility] ([place]) 24 hour Crisis Hotline: 810.445.2179 or 678-050-3088. MANUAL Your Guide to a Healthy manual is now on-line. Visit [email or web address] ncyGuide to download your free copy documented in this encounter [facility] 11-24-2024 Telephone encounter Note Advised to schedule appt [facility] 11-24-2024 Miscellaneous Notes Advised to schedule appt documented in this encounter [facility] 10-27-2024 Progress note Formatting of t his note might be different from the original. Anatomy ultrasound reviewed. No abnormalities identified. Follow up as clinically indicated. Please place copy in ob chart. Joanne Menard MD [facility] Work Phone: 10-27-2024 Miscellaneous Notes Anatomy ultrasound reviewed. No abnormalities identified. Follow up as clinically indicated. Please place copy in ob chart. Joanne Menard MD documented in this encounter [facility] 10-27-2024 Progress note Formatting of t his note might be different from the original. S: Digna Rendon is a 29 year old female who presents at 12.6 weeks gestation for a routine visit. Just completed NT US in [place]. Stated PAZ may be changed? Denies headache, visual changes, chest pain, shortness of breath, vaginal bleeding, leakage of fluid, or dysuria. Feeling well, no complaints. O: See flow sheet Gen: No apparent distress Abd: Gravid, non tender ASSESSMENT/PLAN: 1. 12 weeks gestation of 2. Obesity affecting in first trimester, unspecified obesity type 3. Encounter for supervision of high risk in first trimester, antepartum - NIPT and labs completed - Start ASA - Continue vitamin PO daily - Pregravid BMI 34- start testing at 36 weeks gestation - RTO 4 weeks or sooner if needed Gina Muñiz APRN.CNM [facility] 10-27-2024 Miscellaneous Notes S: Digna Rendon is a 29 year old female who presents at 12.6 weeks gestation for a routine visit. Just completed NT US in [place]. Stated PAZ may be changed? Denies headache, visual changes, chest pain, shortness of breath, vaginal bleeding, leakage of fluid, or dysuria. Feeling well, no complaints. O: See flow sheet Gen: No apparent distress Abd: Gravid, non tender ASSESSMENT/PLAN: 1. 12 weeks gestation of 2. Obesity affecting in first trimester, unspecified obesity type 3. Encounter for supervision of high risk in first trimester, antepartum - NIPT and labs completed - Start ASA - Continue vitamin PO daily - Pregravid BMI 34- start testing at 36 weeks gestation - RTO 4 weeks or sooner if needed Gina Muñiz APRN.CNM documented in this encounter [facility] 10-27-2024 Instructions Ivon Will MA - 10/27/2024 10:52 AM EST SEQUENTIAL SCREENINGS The [facility] offers sequential screenings for women who are interested in screenings for chromosomal abnormalities and certain defects during a . The sequential screen combines ultrasound and blood tests to determine the risk of chromosomal abnormalities, including Down's Syndrome (Trisomy 21) and Trisomy 18, as well as open neural tube defects including spina bifida. Ultrasound examination is performed between 11 weeks and 13 weeks gestational age. Blood tests are drawn after the ultrasound and again later in the between 15 and 21 weeks gestational age. Please let your physician know if you are interested in this testing. It will require an appointment with our refrigerator repair technician. This is not an ultrasound performed by a physician in our office during a routine visit. SIGNS AND SYMPTOMS OF LABOR 1. Contractions every 10 minutes or more often 2. Clear, pink, or brownish fluid (water) leaking from vagina 3. Feeling that baby is pushing down, pressure 4. Low, dull backache 5. Cramps that feel like a period 6. Cramps with or without diarrhea If you notice any of the above symptoms, contact our office at [phone] and ask to speak with a nurse. After hours, you can call doctors registry at [phone] OR call [facility] at [phone] and ask to have the doctor regional business development manager paged. If you consider this an emergency, dial [phone]-- or go to your nearest emergency department. NEED HELP? Are you dealing with a violent or abusive relationship? Are you a victim of rape or sexual assult? Call [facility] ([place]) 24 hour Crisis Hotline: 895.249.7348 or 212-967-2405. MANUAL Your Guide to a Healthy manual is now on-line. Visit [email or web address] ncyGuide to download your free copy documented in this encounter [facility] 09-22-2024 Instructions Jeff Oquendo APRN.REIMBURSEMENT DIRECTOR - 09/22/2024 10:54 AM EST Please select the following link to access the [facility] Your Guide to a Healthy . [email or web address] MORNING SICKNESS IN by Helen Akhtar M.D. for [employer] As you may already know, morning sickness can often be more appropriately called evening sickness or etkpd-gtudbp-cx-the-day sickness. While there are the catarina few, most women (50-90%) experience some degree of nausea, some have vomiting, and a few develop a severe form of vomiting during called hyperemesis gravidarum. What causes the nausea and vomiting of ? We can't explain why some people feel fine and others are green for months. Even the same woman may feel vastly different in each . There is some relationship between nausea and the level of the hormone hCG. In twin pregnancies, and in other situations where the hCG is greater than expected, nausea and vomiting tend to be worse. In a destined for miscarriage, hCG levels tend to be low, and nausea is often less severe. This being said, a lack of nausea doesn't guarantee that the is destined for miscarriage. The fact that nausea and vomiting are often signs of a healthy can offer a silver lining in the dark cloud of miserable nausea. How long will the nausea last? Fortunately, for most women, nausea and vomiting are a first trimester event, peaking at week 9-10 and waning by week 14-16. When you are feeling bad the weeks can go by slowly but most moms do feel tremendously better by the middle of the . Whether morning sickness is a brief experience or lasts through most of the , there are treatments that can make the weeks or months more tolerable. What can you do about it? Diet: See what works for you. Try eating bland dry foods, and avoid fatty or spicy foods. It is okay to eat a less than perfectly balanced diet in the first trimester. Have your liquids separately from dry foods. Try sports drinks, water, clear juices, Cyril-aid, or non-caffeinated tea. Avoid carbonated beverages that fill up your stomach. Try eating lots of little meals. If you tend to feel sick when you first wake up, leave crackers next to the bed for a quick snack before rising. Keeping healthy snacks with you all day to nibble when you feel queasy can sometimes even prevent nausea from starting. vitamins and nausea: Pre- vitamins can sometimes worsen nausea in . While folate is necessary, especially early in the , it comes as a smaller pill that many people find more tolerable than the complete vitamin pill. Ask your practitioner if it is okay to temporarily replace vitamins and iron with just a folate pill if you find a significant worsening in the level of your nausea from the vitamins. Alternative therapies: Acupressure may be used to treat nausea in , and is not known to have any risks for the fetus. Wristbands (marketed for seasickness) that put pressure on an acupressure point at the wrist are often available at drugstores or travel stores. Too root is used for nausea in many traditional cultures. Some women take fresh grated too or too tablets. It is possible that the pill form contains other ingredients or contaminants, so you may want to try fresh too first. Medications: Emetrol is the only nausea medication approved for use in . It is available over the counter and is soothing to the stomach. A prescription medication called Bendectin was available in the -1979's and was shown to be safe in , but the company stopped marketing it in the [place] due to the costs of liability coverage. Bendectin contained 10 milligrams of vitamin B6 and 10 milligrams of Doxylamine. Two tablets were given at bedtime and a total of up to 4 tablets could be used in a 24-hour period. Interestingly, Unisom , which contains a higher dose (25 mg.) of the same medication, Doxylamine, is currently marketed as an kkzl-dof-xolbnzi sleeping pill. Ask your practitioner if creating a vitamin B6/Doxylamine combination with butw-hgh-gdlvrlm medications would be safe for you. Prescription medications like Compazine and Phenergan can be used if the benefits outweigh possible risks, but these have not been clearly shown to be safe in . Zofran , an expensive anti-nausea medication often used to treat nausea from chemotherapy, can also be used. Can I throw up so much it harms the baby? The act of vomiting cannot hurt your fetus, which is protected inside the uterus. If you get dehydrated or develop a metabolic imbalance, this can be unhealthy. As long as you can keep down liquids, you and your baby will generally do all right. Eat when you feel able. If you are unable to keep anything down, or if you notice potential signs of dehydration such as lightheadedness, or concentrated and/or infrequent urination, call your practitioner. Some women need brief hospital admission for intravenous fluids and anti-nausea medications if their condition becomes severe. This severe form of nausea and vomiting is called Hyperemesis Gravidarum. As with many symptoms of , remind yourself that this, too, shall pass, and you'll have a wonderful baby to show for it! TREATMENT OPTIONS, SHORT VERSION: Frequent small meals Hydrate throughout day [employer] wrist pressure point applicators Too root (powdered, in capsules) 250mg four times a day Vitamin B6 25 mg tablet three times a day Also may be taken with half a tablet of Unisom three times a day (Doxylamine 12.5 mg) If severe (weight loss, dehydration), call us and come in for IV hydration and possible medication in the form of injections. Prescription medications such as Phenergan, Compazine, Reglan Ondansetron (Zofran ) May 05, 2020 This sheet talks about exposure to ondansetron in a and while . This information should not take the place of medical care and advice from your healthcare provider. What is ondansetron? Ondansetron is a medication used to treat nausea and vomiting that may be caused by surgery, chemotherapy, or radiation therapy. Ondansetron has also been prescribed during to help with symptoms of nausea and vomiting in (NVP). NVP is also referred to as morning sickness . Ondansetron is taken by mouth, infused into a vein (by IV) or given by injection into a muscle (IM). Ondansetron is sold under the brand name Zofran . What can I do to help control my nausea and vomiting? [employer] has a helpful fact sheet on nausea in with recommendations. You can review it here: [email or web address]/fact-she [email or web address]-eatlocju-tkezwxgjf-nvp /pdf/. Also, eating small meals often, drinking plenty of clear fluids, and avoiding triggers (such as odors, heat, and spicy or high fat foods) can help. Talk to your healthcare provider about which NVP treatments are right for you. I take ondansetron. Can it make it harder for me to become ? There are no studies that have looked to see if ondansetron could make it harder for a person to get . Studies in animals did not find that ondansetron would affect the ability to get . Does taking ondansetron increase the chance for miscarriage? Miscarriage can occur in any . One study did not find that miscarriage happened more often for those who reported that they used ondansetron in the first trimester of . Does taking ondansetron increase the chance of defects? Every starts out with a 3-5% chance of having a defect. This is called the background risk. Most studies have found no increased chance for defects among thousands of people who used ondansetron in the first trimester of . A few studies reported a very small (less than 1%) increase in the chance for a cleft palate (an opening in the roof of the mouth that may be repaired with surgery) or a heart defect. Because of other factors that could affect the pregnancies exposed to ondansetron, it is not known if ondansetron actually increases the chance of defects. Could taking ondansetron cause other complications? Studies did not find a higher chance of loss, delivery (delivery before 37 weeks of ), or low weight when ondansetron was used during . At higher doses, there have been reports that ondansetron use might cause a heart rhythm problem (called QT interval prolongation) in the person taking ondansetron. In severe cases, this could become an abnormal heart rhythm known as Torsades de Pointes. If you are taking ondansetron, you can talk to your healthcare provider about how to watch for changes in your heart rhythm. Does taking ondansetron in cause long-term problems in behavior or learning for the baby? One study looked at 78 infants who were exposed to ondansetron at any time during . The infants were looked at between 7 days to 2 months of age and did not show any signs of unusual behaviors. A single follow-up survey for about 25 of these children was sent in by the parents. The children were between 1 to 5 years old. The survey asked about behavior. The surveys did not report behavior differences in these children compared to children who were not exposed ondansetron during . There are no other studies looking at the use of ondansetron in and long-term effects for the baby. Can I breastfeed while taking ondansetron? There have been no studies in humans looking at the use of ondansetron during . Studies in animals suggest that ondansetron enters breast milk, but the effects of ondansetron on a are not known. If ondansetron use is necessary, it is not usually a reason to stop . A different drug may be considered, especially while a or infant. Be sure to talk to your healthcare provider about all your questions. I take ondansetron. Can it make it harder for me to get my partner or increase the chance of defects? There are no human studies looking at male use of ondansetron. Animal studies have not shown any effect on male fertility. In general, exposures that fathers and sperm donor have are unlikely to increase risks to a . For more information, please see the [employer] fact sheet Paternal Exposures at [email or web address]/fact-she ets/rplkutfg-mjjoxvvlv-seibhrtgg/ pdf/. documented in this encounter [facility] 09-22-2024 Note HNO ID: [id number] Author: JEFF OQUENDO APRN.SANTIAGO Service: ? Author Type: Nurse Practitioner Type: Progress Notes Filed: 09/22/2024 11:30 Note Text: Director Of Corporate Marketing offered: Patient declines. INITIAL OB ASSESSMENT HPI: Digna is a 29 year old White Female here to establish Obstetrical Care. Patient's last menstrual period was 07/29/2024. from OB Dating Form. was unplanned but accepted Complaints: -- (spotting one day, it has now stopped) OB History T0 L0 SAB0 IAB0 Ectopic0 Multiple0 Live Births0 Previous history: Prior : never History of 4th degree laceration: no History of shoulder dystocia: no History of Hypertensive disorders including pre-eclampsia or gestational hypertension: no History of gestational diabetes: no Patient's Risk Screening for delivery: Have you had a prior jansen between 20w and 36w6d? No How many pregnancies have you had before? 0 Did you have a previous baby with a GBS Infection? No Please select all that apply for any prior : N/A MEDICAL/PSYCHOSOCIAL HISTORY: Severe Bleeding with delivery: NO Thyroid Disease: NO Gestational Hypertension: NO Preeclampsia: NO Diabetes in : NO No results found for: ABORHD BMI 34.56 kg/(m2) Last Pap: 11/19/2023 History of abnormal pap: no Prior treatment for cervical dysplasia: none. Last HPV: N/A History of STDs: None Partner History of STDs: None Did you have a partner with Herpes? No Tobacco use: No E-Cigarette/Vaping Use: No Caffeine use: No Drug use: No Alcohol use: No Multivitamin with Folic acid: Yes Would refuse blood transfusion if medically necessary: No Social Needs: How often does this describe you? I don't have enough money to pay my bills: Never Within the past 12 months, have you worried that your food would run out before you had money to buy more? Never In the past 12 months, has lack of reliable transportation kept you from going to medical appointments or work, or from getting things needed for daily living? Never In the past 12 months, have you had any concerns about having a place to live, or about the condition or quality of your housing? Never Would you like more information on any of the following (please check all that apply)? Not interested Social History: Do you have any history of depression, anxiety, PTSD, or other mood problems? No Do you have a history of abuse or trauma that may impact your experience? No Are you currently employed? Yes Depression/Anxiety Screening: denies symptoms of depression. OB Depression and Anxiety Screening- This Encounter (since 09/21/2024) Over the past 2 weeks have you felt down, depressed, or hopeless? Negative Over the past two weeks, have you felt little interest or pleasure in doing things?? Negative Feeling nervous, anxious or on edge 0-Not at all Not being able to stop or control worrying 0-Not al all Anxiety Pre-Screening Total (If >/= 3 additional questions will be reviewed) 0 Genetic Screening: Partner present: Yes Patient verbalized knowledge of partner family health history: Yes Do you or your partner have any personal or family history of defects not previously discussed: No Do you have history of a complicated by anomaly, genetic condition, or demise: no Preeclampsia Risk Screening: Screening for prevention of preeclampsia: High risk factors: None Moderate risk ractors: Nulliparity and Obesity (body mass index greater than 30) OB Risk Screening: Completed, no positive findings documented. Marital Status: Partner: Name: Heather Age: 26 Occupation: [employer] Gender: Male PAST MEDICAL HISTORY Diagnosis Date Dysmenorrhea 07/12/2015 Family history of arrhythmia 04/18/[address] Loo NEGATIVE HISTORY OF 04/17/2011 normal color vision PAST SURGICAL HISTORY Procedure Laterality Date PAST SURGICAL HISTORY OF 05/2017 wisdom teeth extraction TONSILLECTOMY PRIMARY/SECONDARY Tonsillectomy Current Outpatient Medications Medication Sig Dispense Refill PNV no.95/ferrous fum/folic ac ( ORAL) Take by mouth. ondansetron orally disintegrating (ZOFRAN ODT) 4 mg disintegrating tablet Take 1 tablet by mouth every 8 hours as needed for nausea/vomiting. 20 tablet 1 acyclovir (ZOVIRAX) 800 mg tablet Take 1 tablet by mouth three times a day. Take at first signs of cold sore outbreak x 5-7 days. 30 tablet 2 Norethindrn A-E Estradiol-Iron (SHANTE 24 FE) 1 mg-20 mcg (24)/75 mg (4) Take 1 tablet by mouth once daily. 90 tablet 3 No current facility-administered medications for this visit. Allergies As of Date: 09/22/2024 Allergen Noted Reaction AMOXICILLIN 11/14/2006 Hives PENICILLINS 03/03/2022 Hives Fully Assessed 09/22/2024 Does patient have penicillin allergy: Yes, plan for allergy testing. REVIEW OF SYSTE (more content not included)... [facility] 09-22-2024 History of Present illness Narrative Director Of Corporate Marketing offered: Patient declines. INITIAL OB ASSESSMENT HPI: Digna is a 29 year old White Female here to establish Obstetrical Care. Patient's last menstrual period was 07/29/2024. from OB Dating Form. was unplanned but accepted Complaints: -- (spotting one day, it has now stopped) OB History T0 L0 SAB0 IAB0 Ectopic0 Multiple0 Live Births0 Previous history: Prior : never History of 4th degree laceration: no History of shoulder dystocia: no History of Hypertensive disorders including pre-eclampsia or gestational hypertension: no History of gestational diabetes: no Patient's Risk Screening for delivery: Have you had a prior jansen between 20w and 36w6d? No How many pregnancies have you had before? 0 Did you have a previous baby with a GBS Infection? No Please select all that apply for any prior : N/A MEDICAL/PSYCHOSOCIAL HISTORY: Severe Bleeding with delivery: NO Thyroid Disease: NO Gestational Hypertension: NO Preeclampsia: NO Diabetes in : NO No results found for: ABORHD BMI 34.56 kg/(m^2) Last Pap: 11/19/2023 History of abnormal pap: no Prior treatment for cervical dysplasia: none. Last HPV: N/A History of STDs: None Partner History of STDs: None Did you have a partner with Herpes? No Tobacco use: No E-Cigarette/Vaping Use: No Caffeine use: No Drug use: No Alcohol use: No Multivitamin with Folic acid: Yes Would refuse blood transfusion if medically necessary: No Social Needs: How often does this describe you? I don't have enough money to pay my bills: Never Within the past 12 months, have you worried that your food would run out before you had money to buy more? Never In the past 12 months, has lack of reliable transportation kept you from going to medical appointments or work, or from getting things needed for daily living? Never In the past 12 months, have you had any concerns about having a place to live, or about the condition or quality of your housing? Never Would you like more information on any of the following (please check all that apply)? Not interested Social History: Do you have any history of depression, anxiety, PTSD, or other mood problems? No Do you have a history of abuse or trauma that may impact your experience? No Are you currently employed? Yes Depression/Anxiety Screening: denies symptoms of depression. OB Depression and Anxiety Screening- This Encounter (since 09/21/2024) Over the past 2 weeks have you felt down, depressed, or hopeless? Negative Over the past two weeks, have you felt little interest or pleasure in doing things? Negative Feeling nervous, anxious or on edge 0-Not at all Not being able to stop or control worrying 0-Not al all Anxiety Pre-Screening Total (If >/= 3 additional questions will be reviewed) 0 Genetic Screening: Partner present: Yes Patient verbalized knowledge of partner family health history: Yes Do you or your partner have any personal or family history of defects not previously discussed: No Do you have history of a complicated by anomaly, genetic condition, or demise: no Preeclampsia Risk Screening: Screening for prevention of preeclampsia: High risk factors: None Moderate risk ractors: Nulliparity and Obesity (body mass index greater than 30) OB Risk Screening: Completed, no positive findings documented. Marital Status: Partner: Name: Heather Age: 26 Occupation: [employer] Gender: Male PAST MEDICAL HISTORY Diagnosis Date Dysmenorrhea 07/12/2015 Family history of arrhythmia 04/18/[address] Loo NEGATIVE HISTORY OF 04/17/2011 normal color vision PAST SURGICAL HISTORY Procedure Laterality Date PAST SURGICAL HISTORY OF 05/2017 wisdom teeth extraction TONSILLECTOMY PRIMARY/SECONDARY <AGE 12 Tonsillectomy Current Outpatient Medications Medication Sig Dispense Refill PNV no.95/ferrous fum/folic ac ( ORAL) Take by mouth. ondansetron orally disintegrating (ZOFRAN ODT) 4 mg disintegrating tablet Take 1 tablet by mouth every 8 hours as needed for nausea/vomiting. 20 tablet 1 acyclovir (ZOVIRAX) 800 mg tablet Take 1 tablet by mouth three times a day. Take at first signs of cold sore outbreak x 5-7 days. 30 tablet 2 Norethindrn A-E Estradiol-Iron (SHANTE 24 FE) 1 mg-20 mcg (24)/75 mg (4) Take 1 tablet by mouth once daily. 90 tablet 3 No current facility-administered medications for this visit. Allergies As of Date: 09/22/2024 Allergen Noted Reaction AMOXICILLIN 11/14/2006 Hives PENICILLINS 03/03/2022 Hives Fully Assessed 09/22/2024 Does patient have penicillin allergy: Yes, plan for allergy testing. REVIEW OF SYSTEMS: GENERAL: Negative for: Fever or Chills HEENT: Negative for: Headache, Impaired Vision, Ringing in Ears, Nosebleeds NECK: Negative for: Swelling, Pain, Stiffness RESPIRATORY: Negative for: Cough, Shortness of breath, Wheezing GASTROINTESTINAL: Negative for: Heartburn, Constipation, Diarrhea, Blood in stool + nausea MUSCULOSKELETAL: Negative for: Muscle or joint pain, stiffness, Joint swelling NEUROLOGIC/PSYCHIATRIC: Negative for: Weakness, Paralysis, Numbness, Tingling, Tremor, Anxiety, Depression, Memory loss SKIN: Negative for: Rash, Itching GENITOURINARY: Negative for: vaginal itching, vaginal discharge, hematuria or dysuria SENSITIVE EXAM: The sensitive examination was discussed with the Patient or Patient's Authorized Auto Mechanics Teacher. As applicable, any other physician, advance practice provider, medical student, or other health professional student that will be observing or involved in the sensitive examination for educational or training purposes was discussed with the Patient or Authorized Auto Mechanics Teacher. The Patient or Authorized Auto Mechanics Teacher has agreed to proceed with the sensitive examination. (Sensitive examination includes inspection and/or palpation of the breasts, pelvis, prostate and anorectal regions). PHYSICAL EXAM: BP 112/70 Ht 5' 8.11 (1.73m) Wt 228 lb (103.4kg) LMP 07/29/2024 BMI 34.56 kg/(m^2). GENERAL: pleasant in no apparent distress DERMATOLOGY: Normal, without lesions, non-icteric, and non-hirsute NECK: Supple, full range of motion, no adenopathy, and thyroid normal CHEST: Normal inspiratory effort BREAST: soft, non-tender, symmetric, no dominant mass, normal nipple-areolar complex, no lymphadenopathy, and no nipple discharge ABDOMEN: soft, non-tender, and no masses NEURO: alert and oriented x3,exam grossly non-focal PELVIS: External genitalia normal without lesions. Perineal body intact. No vaginal or cervical lesions. Cervix closed. Uterus <8 week size. No adnexal masses or tenderness. Clinical Pelvimetry: Pelvimetry clinically assessed as adequate Limited OB ultrasound exam: single intrauterine and positive cardiac activity ASSESSMENT: 29 year old at 7w6d wks gestational age PLAN: 1) Patient oriented to practice. Patient given new OB orientation folder. Discussed nutrition, folic acid supplementation, dietary guidelines, exercise, smoking, alcohol, caffeine, and drug use. Discussed gestational weight gain guidelines. Discussed routine OB labs including STD/HIV. Discussed how to access Your guide to a health and the Digital [employer]. Discussed hemoglobin electrophoresis. Patient: Declines Patient has penicillin allergy, plan for allergy testing. Reviewed midwifery and field operations coordinator services that are available. 2) Screening: Hemoglobin A1C: ordered Baby Aspirin: The patient has been counseled about the potential benefits of low dose aspirin in and our recommendation that this be offered to all patients, regardless of whether they meet the high risk criteria specified above. She Accepts Aneuploidy Screening: Discussed aneuploidy screening, nuchal translucency/first trimester early anatomy ultrasound and NIPT. The risks/benefits and limitations of NIPT/aneuploidy screening were reviewed including the potential for false negative and false positive results. The availability of genetic counseling was reviewed. Information on aneuploidy screening was provided. The patient chooses to proceed with First trimester early anatomy ultrasound (12-13w6d) Myriad Carrier Screening: Discussed myriad carrier screening. We discussed the availability of professional-society guided carrier screening and reviewed the conditions screened and limitations of screening. The availability of genetic counseling was reviewed. Information on carrier screening was provided. The patient is considering 3) Patient offered option of Virtual Visits. Patient unsure. May consider in future. ACTIVE PROBLEM LIST Encounter for Supervision of High Risk in First Trimester, Antepartum - 09/22/2024 Comment: Care Checklist Vaccines: [] Flu vaccine [] declined [] RSV vaccine 32 0/7 - 36 6/7 (Jun - Nov) [] declined [] COVID vaccine [] declined [] TDaP 27-36 [] declined First trimester: [x] Dating US [] 1st tri labs [x] Pap smear UTD [] Carrier screening - considering [] declined [] NIPT screening - considering [] declined [x] First trimester anatomy scan [] declined [x] universal ASA ordered (start 12w-16w) [] declined [] M Power Consult [] not indicated [] declined Second trimester: [] Anatomy scan [] Mode of Delivery - [] Feeding - [] Pump ordered [] Diabetes screen [] CBC, RPR [] Behavioral Health Screening Third trimester (28-30 weeks): [] Consent [] Contraception [] Pathology Lab Technician [] TeamBirth handout Third trimester (36-40 weeks): [] GBS [] Presentation - [] Scheduled [] yes - Hibiclens, pre-op instructions, CBC, T&S ordered [] no [] H&P [] Preferences wo With Uncertain Dates in First Trimester - 09/22/2024 Comment: September 22, 2024 POCUS not consistent with LMP. Confirm PAZ with NT. Jeff Oquendo APRN.CNP Obesity Affecting in First Trimester - 09/22/2024 Comment: Pre BMI 34 Nausea and Vomiting During - 09/22/2024 Comment: 09/22/24 Vitamin B6 and Unisom doses reviewed. PCP prescribed Zofran - reviewed 1st trimester risks. Written info provided. Jeff Oquendo APRN.SANTIAGO Follow up in 4 weeks or sooner prn. Plan for NT scan between 12w0d and 13w6d gestation. Jeff Oquendo APRN.REIMBURSEMENT DIRECTOR documented in this encounter [facility] 09-07-2024 Telephone encounter Note Spoke with pt gave information provided. Pt voices understanding. [facility] 09-07-2024 Miscellaneous Notes Spoke with pt gave information provided. Pt voices understanding. I would not recommend taking this medication while . The data is inconclusive but it does cross over to the placenta. If you develop a bad cold sore while , please let us know and we will weigh risk vs benefit then. Thank you, Janneth Donato APRN.REIMBURSEMENT DIRECTOR Images from the original note were not included. Digna Rendon tr [facility] My Chart Rx Pool I forgot to ask if i can take acloyvir (cold sores) While ? That was one of the reasons I needed an appointment today was to renew my prescription before our trip! I know sometimes travel can cause cold sores to pop up. Thanks again, it was good to see you today! documented in this encounter [facility] 09-07-2024 Telephone encounter Note I would not recommend taking this medication while . The data is inconclusive but it does cross over to the placenta. If you develop a bad cold sore while , please let us know and we will weigh risk vs benefit then. Thank you, Janneth Donato APRN.REIMBURSEMENT DIRECTOR [facility] Work Phone: 09-06-2024 Telephone encounter Note Images from the original note were not included. Digna Rendon [facility] My Chart Rx Pool I forgot to ask if i can take acloyvir (cold sores) While ? That was one of the reasons I needed an appointment today was to renew my prescription before our trip! I know sometimes travel can cause cold sores to pop up. Thanks again, it was good to see you today! [facility] 09-06-2024 Instructions Adrian Downing DO - 09/06/2024 12:43 PM EST Vitamin C 500 mg up to 1000 mg a day Zinc 15 mg up to 25 mg a day Elderberry syrup - homemade Vitamin D3 [id number] international unit(s) a day documented in this encounter [facility] 09-06-2024 Note HNO ID: [id number] Author: ADRIAN DOWNING DO Service: ? Author Type: Physician Type: Progress Notes Filed: 09/08/2024 12:10 Note Text: CC: Digna Rendon is a 29 year old female who presents to the office for physical HPI: Overall she is doing very well She is scheduled to see OBGYN for a recently found . She thinks she is about 6 weeks at this time with her 1st . She was just recently this fall. She is taking vitamins No significant fatigue or nausea. [facility] [place] [facility] for 7-10 days PAST MEDICAL HISTORY Diagnosis Date Family history of arrhythmia 04/18/[address] Loo NEGATIVE HISTORY OF 04/17/11 normal color vision PAST SURGICAL HISTORY Procedure Laterality Date PAST SURGICAL HISTORY OF 05/2017 wisdom teeth extraction TONSILLECTOMY PRIMARY/SECONDARY Tonsillectomy Social History: Social History Tobacco Use Smoking status: Never Smokeless tobacco: Never Vaping Use Vaping status: Never Used Substance Use Topics Alcohol use: Not Currently Drug use: No FAMILY HISTORY Problem Relation Age of Onset No Known Problems Mother Heart Father PVCs No Known Problems Sister No Known Problems Sister No Known Problems Brother Cancer Maternal Grandmother Pancreatic Heart Maternal Grandfather arrythmia--has defibrillator COPD Paternal Grandmother Emphysema Paternal Grandmother Heart Paternal Grandfather fast heart pacemaker Diabetes Paternal Grandfather Heart Maternal Uncle 46 congenital, CAD Alzheimer's Disease Other P Great-Uncle Current Outpatient prescriptions: ondansetron orally disintegrating (ZOFRAN ODT) 4 mg disintegrating tablet Take 1 tablet by mouth every 8 hours as needed for nausea/vomiting. acyclovir (ZOVIRAX) 800 mg tablet Take 1 tablet by mouth three times a day. Take at first signs of cold sore outbreak x 5-7 days. Norethindrn A-E Estradiol-Iron (SHANTE 24 FE) 1 mg-20 mcg (24)/75 mg (4) Take 1 tablet by mouth once daily. Allergies: ALLERGIES Allergen Reactions Amoxicillin Hives ROS: See HIP PE: 09/06/24 1156 BP: 110/70 Pulse: 72 Resp: 12 Temp: 36.2 ?C (97.2 ?F) TempSrc: Left Tympanic Weight: 100 kg (220 lb 7.4 oz) Gen: AANDO, NAD, non-toxic appearing, Pleasant, cooperative HEENT: NT/AC, PERRLA, EOMs intact b/l, nares clear and patent b/l, pharynx without erythema, exudate or lesions. Uvula midline. EACs without erythema or debris. TMs pearly johansen with intact landmarks b/l. Neck: supple, No cervical LAD, no thyromegaly, no carotid bruits CV: RRR, normal S1 and S2, no murmurs, no gallops, no rubs, Pulses 2+ and symmetric in UE and LE b/l Lungs: normal respiratory effort, CTA b/l, no wheezing or rhonchi or rales Abd: soft, NT, ND, +BS, no hepatosplenomegaly MS: FROM all 4 extremities Neuro: CN II-XII intact b/l, strength 5/5 b/l UE and LE, DTRs 2/4 UE and LE, sensation intact. Skin: warm, dry, intact, No rashes or lesions on exposed skin. ASSESSMENT/PLAN: 1. Well adult exam - ICD9: V70.0, ICD10: Z00.00 (primary diagnosis) - Counseled on healthy diet and regular exercise 2. Less than 8 weeks gestation of - ICD9: V22.2, ICD10: Z3A.01 F/u with OBGYN for care/management Continue vitamin - ONDANSETRON 4 MG DISINTEGRATING TABLET Adrian Downing DO To ER if develops chest pain, shortness of breath, or severe worsening of symptoms. Discussed risks, benefits, alternatives, and potential side effects of medications. Patient expressed understanding and agreed with the plan. Adrian Downing DO [address] [place] [address] [facility] 09-06-2024 History of Present illness Narrative CC: Digna Rendon is a 29 year old female who presents to the office for physical HPI: Overall she is doing very well She is scheduled to see OBGYN for a recently found . She thinks she is about 6 weeks at this time with her 1st . She was just recently this fall. She is taking vitamins No significant fatigue or nausea. [facility] be [facility] [place] [email or web address] for 7-10 days PAST MEDICAL HISTORY Diagnosis Date Family history of arrhythmia 04/18/[address] Loo NEGATIVE HISTORY OF 04/17/11 normal color vision PAST SURGICAL HISTORY Procedure Laterality Date PAST SURGICAL HISTORY OF 05/2017 wisdom teeth extraction TONSILLECTOMY PRIMARY/SECONDARY <AGE 12 Tonsillectomy Social History: Social History Tobacco Use Smoking status: Never Smokeless tobacco: Never Vaping Use Vaping status: Never Used Substance Use Topics Alcohol use: Not Currently Drug use: No FAMILY HISTORY Problem Relation Age of Onset No Known Problems Mother Heart Father PVCs No Known Problems Sister No Known Problems Sister No Known Problems Brother Cancer Maternal Grandmother Pancreatic Heart Maternal Grandfather arrythmia--has defibrillator COPD Paternal Grandmother Emphysema Paternal Grandmother Heart Paternal Grandfather fast heart pacemaker Diabetes Paternal Grandfather Heart Maternal Uncle 46 congenital, CAD Alzheimer's Disease Other P Great-Uncle Current Outpatient prescriptions: ondansetron orally disintegrating (ZOFRAN ODT) 4 mg disintegrating tablet Take 1 tablet by mouth every 8 hours as needed for nausea/vomiting. acyclovir (ZOVIRAX) 800 mg tablet Take 1 tablet by mouth three times a day. Take at first signs of cold sore outbreak x 5-7 days. Norethindrn A-E Estradiol-Iron (SHANTE 24 FE) 1 mg-20 mcg (24)/75 mg (4) Take 1 tablet by mouth once daily. Allergies: ALLERGIES Allergen Reactions Amoxicillin Hives ROS: See HIP PE: 09/06/24 1156 BP: 110/70 Pulse: 72 Resp: 12 Temp: 36.2 C (97.2 F) TempSrc: Left Tympanic Weight: 100 kg (220 lb 7.4 oz) Gen: A&O, NAD, non-toxic appearing, Pleasant, cooperative HEENT: NT/AC, PERRLA, EOMs intact b/l, nares clear and patent b/l, pharynx without erythema, exudate or lesions. Uvula midline. EACs without erythema or debris. TMs pearly johansen with intact landmarks b/l. Neck: supple, No cervical LAD, no thyromegaly, no carotid bruits CV: RRR, normal S1 and S2, no murmurs, no gallops, no rubs, Pulses 2+ and symmetric in UE and LE b/l Lungs: normal respiratory effort, CTA b/l, no wheezing or rhonchi or rales Abd: soft, NT, ND, +BS, no hepatosplenomegaly MS: FROM all 4 extremities Neuro: CN II-XII intact b/l, strength 5/5 b/l UE and LE, DTRs 2/4 UE and LE, sensation intact. Skin: warm, dry, intact, No rashes or lesions on exposed skin. ASSESSMENT/PLAN: 1. Well adult exam - ICD9: V70.0, ICD10: Z00.00 (primary diagnosis) - Counseled on healthy diet and regular exercise 2. Less than 8 weeks gestation of - ICD9: V22.2, ICD10: Z3A.01 F/u with OBGYN for care/management Continue vitamin - ONDANSETRON 4 MG DISINTEGRATING TABLET Adrian Downing, DO To ER if develops chest pain, shortness of breath, or severe worsening of symptoms. Discussed risks, benefits, alternatives, and potential side effects of medications. Patient expressed understanding and agreed with the plan. Adrian Downing DO [address] [place] [address] documented in this encounter [facility] 07-15-2024 Telephone encounter Note Pt has not been seen for 2 years. Advised to schedule a yearly appt. Dennise Whaley MA [facility] 07-15-2024 Telephone encounter Note See refill encounter Dennise Whaley MA [facility] 07-15-2024 Miscellaneous Notes See refill encounter Dennise Whaley MA documented in this encounter [facility] 07-15-2024 Miscellaneous Notes Pt has not been seen for 2 years. Advised to schedule a yearly appt. Dennise Whaley MA documented in this encounter [facility] 06-08-2024 Note Addended by: PATTI JACINTO on: 06/08/2024 05:01 PM Modules accepted: Orders [facility] 06-08-2024 Miscellaneous Notes Addended by: PATTI JACINTO on: 06/08/2024 05:01 PM Modules accepted: Orders That dose was not escripted, only the original BID x20 days was, but then it was cancelled and pharmacy confirmed receipt of escript cancellation. Please file rx again. Patti Jacinto RN Please confirm with pharmacy that correct rx was sent. 800 mg of Acyclovir orally two times per day for 5 days. 3 refills provided. Jeff Oquendo APRN.CNP Refill request received via [employer]. Patient last seen for annual exam on 11/19/23. Leonie Hanson RN documented in this encounter [facility] 06-08-2024 Telephone encounter Note That dose was not escripted, only the original BID x20 days was, but then it was cancelled and pharmacy confirmed receipt of escript cancellation. Please file rx again. Patti Jacinto RN [facility] 06-08-2024 Telephone encounter Note Please confirm with pharmacy that correct rx was sent. 800 mg of Acyclovir orally two times per day for 5 days. 3 refills provided. Jeff Oquendo APRN.SANTIAGO [facility] 06-08-2024 Telephone encounter Note Refill request received via [employer]. Patient last seen for annual exam on 11/19/23. Leonie Hanson RN [facility] 11-19-2023 Instructions Jeff Oquenod APRN.CNP - 11/19/2023 7:50 AM EST Oral Contraceptives: The Pill Beginning the Pill Pills come in either a 21 day pack or a 28 day pack. With the 21 day pack you will take one pill for 21 days then no pill for 7 days, during which time you will have what is known as withdrawal bleeding. The 28 day pack allows you to take a pill every day of the cycle with no interruptions. The first 21 pills are the pills with the active ingredients and the last 7 are the nonmedical pills (placebo) or they may contain iron. There will be bleeding during the week you are taking the nonmedical pills. The advantage to the 28 day pack is that you don t have to keep track of when you stopped the pill. There are a group of 28 day pills that contain 24 active pills and only 4 placebo pills. These are formulated to give you a gang supervisor period. Unless otherwise instructed, you should start your pills the Thursday following your first day of bleeding with your next period (if your period starts on a Thursday, you should start pills the same day) Read your information packet that comes with the pills. Pill Benefits The pill is the most popular method of reversible control being used today. Millions of women rely on oral contraceptives as their control method. It is important to have an examination by your physician to determine if the pill is safe for you. There are several advantages associated with the pill: it is 97-98% effective when used correctly; may improve acne; periods are more regular and less painful; there is less iron deficiency anemia in pill users. FDC use is associated with a decreased incidence of ovarian and uterine cancer. There is also no evidence that the pill increases the incidence of any cancer. How Oral Contraceptives Work Oral contraceptives come in two varieties. One is the combination pill which contains both estrogen and progesterone. Combination pills are considered 98-99% effective in preventing . This pill comes in either monophasic, which delivers the same amount of estrogen and progesterone throughout the cycle; and triphasic, which try tries to mimic the normal hormone cycle by changing the levels of the hormones in the pills during the month. There is no real advantage to taking the one over the other. The other type of pill only contains progesterone. It is best used for women who can t take estrogen. This type of pill is slightly less effective than the combination pill in preventing . It is VERY important to take the progesterone only pill at the same time every day. Oral contraceptives prevent ovulation (release of an egg from the ovary) by suppressing the pituitary gland s action. The pill does NOT prevent sexually transmitted disease. Obtaining a Prescription It is important to see your doctor before starting oral contraceptives so that you can have a full medical history taken and a physical examination given. Certain medical conditions may make the pill inappropriate for you, therefore it is very important to be honest and as complete as possible with the information you share with your doctor. The types of predisposing factors which would make the pill a poor choice of control would include: History of blood clots Stroke Serious liver disease or impaired liver function Unexplained vaginal bleeding or Cancer of the reproductive system Active gall bladder disease Hypertension Possible Side Effects It can take up to three months for your body to become adjusted to the pill. The more common side effects experienced at this time are: breakthrough spotting or bleeding, which is bleeding at any other time other than when you should be having a period; nausea or vomiting; breast tenderness; and mild fluid retention. There is no alf weight gain with the use of the pill. Breakthrough bleeding is the most common complaint of new pill users. There is no way to predict who will have it and there is no way of preventing it. Breakthrough bleeding usually subsides on its own with no further treatment after the first three months of taking the pill. If these symptoms continue to occur after the first three months you should check with your physician to see if there is any physical cause and possibly change to another control pill. Problems: Missed 1 pill: Take 2 pills the next day. Missed 2 pills: Take 2 pills the next day and 2 pills the following day. Also use another form of control (condoms) along with the pill for the rest of the month. Missed 3 or more pills: You have two choices. You can take two pills each day until you are on schedule, plus use an additional form of control along with the pill for the rest of the month. Or you can stop the pill and start a completely new pack of pills the next Thursday. You must use another form of control with the pill for at least the first two weeks of the new pack. You re ill and you have been vomiting or have diarrhea: You must use another form of control with the pill since the pill may not be fully absorbed during your illness. Continue to use the added control until the end of the cycle. Desire to become : Stop using the pill for one month before trying to become . Taking other medications: The control pill is less effective when you take the antibiotic Rifampin, epilepsy (seizure) drugs such as phenytoin, carbamazepine, phenobarbital, topiramate and some medications for HIV. Let your doctor know if you start taking any of these medications while on the pill. Symptoms to Notify Your Doctor with Immediately: Pain in your chest or legs Continuous blurred vision Severe headaches Slurred speech Tingling or weakness on one side of your body Shortness of breath Swelling of one leg Refills of Control Pills You need to see a doctor every year for a refill of your prescription. This is necessary in order that your health can be monitored closely while you are taking control pills. If your prescription should before your next scheduled appointment you can usually get a one month extension from your doctors office if you call during regular business hours about one week before you need to start the new package of pills. This allows the physician to refer to your chart for necessary health information. documented in this encounter [facility] 11-19-2023 History of Present illness Narrative Digna is a 28 year old who presents for an annual gynecologic exam with complaints, irregular bleeding. Was seen about a month ago for irregular bleeding and weight gain. Pelvic ultrasound WNL, labs WNL besides a lower estrogen level. Menses: normally every 28 days, about 5 days long. Has recently been experiencing irregular menses. Went 3 months without a cycle. Contraception: none HPV vaccine: Yes Last Pap: 12/18/2018 normal HPV: N/A History of abnormal pap: No Last mammogram: never Sexually active: Yes History of STDS: None Pain with intercourse: No Postcoital bleeding: No Exercise: walking, kickboxing OB History T0 L0 SAB0 IAB0 Ectopic0 Multiple0 Live Births0 Patient Registration Clerk History LMP: 10/28/2023 (Approximate), Having periods Age at Menarche: Age at First : Age at Menopause: Patient Registration Clerk History Comments: Sexual Activity: Yes; Male Contraception: Pill PAST MEDICAL HISTORY Diagnosis Date Family history of arrhythmia 04/18/[address] Loo NEGATIVE HISTORY OF 04/17/11 normal color vision PAST SURGICAL HISTORY Procedure Laterality Date PAST SURGICAL HISTORY OF 05/2017 wisdom teeth extraction TONSILLECTOMY PRIMARY/SECONDARY <AGE 12 Tonsillectomy FAMILY HISTORY Problem Relation Age of Onset Cancer Maternal Grandmother Pancreatic Heart Maternal Grandfather arrythmia--has defibrillator Heart Paternal Grandfather fast heart pacemaker Diabetes Paternal Grandfather Heart Father PVCs Heart Maternal Uncle 46 congenital, CAD Alzheimer's Disease Other P Great-Uncle SOCIAL HISTORY Social History Tobacco Use Smoking status: Never Smokeless tobacco: Never Vaping Use Vaping Use: Never used Substance Use Topics Alcohol use: Not Currently Drug use: No REVIEW OF SYSTEMS Abdomen: No abdominal pain, nausea, vomiting, diarrhea, or constipation. No bloating, early satiety, indigestion, or increased flatulence. Bladder: No dysuria, gross hematuria, urinary frequency, urinary urgency, or incontinence. Breast: No breast lumps, nipple d/c, overlying skin changes, redness or skin retraction. Allergies and current medication updated:Yes EXAM: BP 118/64 Ht 5' 7 (1.70m) Wt 221 lb (100.2kg) LMP 10/28/2023 BMI 34.61 kg/(m^2). GENERAL: pleasant, female in no apparent distress HEENT: Normocephalic, atraumatic, mucus membranes moist, and no lesions NECK: Supple, full range of motion, no adenopathy, and thyroid normal DERMATOLOGY: Normal, without lesions, non-icteric, and non-hirsute BREAST: soft, non-tender, symmetric, no dominant mass, normal nipple-areolar complex, no lymphadenopathy, and no nipple discharge CHEST: Normal inspiratory effort ABDOMEN: soft, non-tender, and no masses PELVIC: external genitalia normal, normal Bartholin's glands, urethra, [place]'s glands, no vulvar lesions, no cervical lesions, good vaginal support, physiologic discharge present, normal appearing perineal body and perianal region BIMANUAL: uterus normal size, shape and consistency, no adnexal masses, and non-tender RECTOVAGINAL: deferred. NEURO: alert and oriented x3,exam grossly non-focal EXTREMITIES: normal ASSESSMENT/PLAN: 1) Health maintenance: Pap done with reflex HPV. Nutrition, exercise and routine health maintenance exams reviewed. Calcium/Vitamin D supplementation information provided. 2) Contraception: none. Contraceptive options reviewed and information provided. 3) STD screening: Declined STD check. 4) Follow up one year or sooner as needed Unintended weight gain - ICD9: 783.1, ICD10: R63.5 - Labs WNL, besides low estrogen - Has been decreasing sugar and walking after dinner, 2 lb weight loss noted since last visit - Only getting 5-6 hours of sleep per night, discussed lack of sleep's effects on insulin resistance - Plans to follow up with Sowmya Calles CNP Irregular bleeding - ICD9: 626.4, ICD10: N92.6 - LMP 10/28 - Low estrogen level with labs, may be related to timing of cycle, but with extended times without menses, discussed risk of hyperplasia - Discussed expectant management/weight management vs OCP - Patient opts to trial OCP again. Rx sent. - Denies migraines with aura, VTE history or clotting disorder, hypertension, or liver issues. Does not smoke. - Reviewed r/b/a, possible side effects. See patient instructions for further OCP education. To follow up for weight management and as needed. RTO for 1 year annual. Jeff Oquendo APRN.SANTIAGO documented in this encounter [facility] 11-10-2023 History of Present illness Narrative Radiology Service Progress Note PATIENT NAME: Digna Rendon DATE OF SERVICE: November 10, 2023 TIME: 11:24 AM PATIENT IDENTITY VERIFICATION COMPLETED USING TWO (2) IDENTIFIERS: Name and Date of confirmed by patient verbally. FALL SCREENING: Has the patient had 2 falls in the last year or 1 fall with injury or currently using an Ambulatory Assistive Device (Walker, Cane, Wheelchair, Crutches, etc.)? No PATIENT GENDER DATA: Female. status: : No status: NO. PATIENT RELEVANT IMPLANT DATA REVIEWED: Not Applicable PATIENT PRESENTS WITH AN IMPLANTABLE OR ATTACHED TILE INSPECTOR: No RADIOLOGY DEPARTMENT: Ultrasound PERIPHERAL IV DATA: Not applicable SIGNED BY: Digna Quintana RDMS Jovana November 10, 2023 11:24 AM documented in this encounter [facility] 05-06-2023 Miscellaneous Notes Last saw 12/27/21 for problem visit. [employer] message sent. Requested Prescriptions Pending Prescriptions Disp Refills acyclovir (ZOVIRAX) 800 mg tablet 30 tablet 0 Sig: Take 1 tablet by mouth three times daily. Take at first signs of cold sore outbreak x 5-7 days. Etonogestrel-Ethinyl Estradiol (NUVARING) 0.12-0.015 mg/24 hr vaginal ring 1 Each 2 Sig: Use 1 Each vaginally as directed. RX INSTRUCTIONS: Mychart refill request. Patti Jacinto RN documented in this encounter [facility] 05-06-2023 Miscellaneous Notes Last saw KJ 12/27/21 for problem visit. [employer] message sent. Patti Jacinto RN documented in this encounter [facility] 07-09-2022 History of Present illness Narrative In lieu of an in person visit due to coronavirus COVID 19 pandemic concerns, a virtual visit was performed with patient. Patient is aware that I am not fully able to assess symptoms and do a full physical exam including vital signs in office at this time. Patient consents to the visit. VIRTUAL VISIT PROGRESS NOTE This is a virtual visit using [employer] video visit. It required patient-provider interaction for the medical decision making as documented below. Digna Rendon is a 26 year old female seen for follow up Seen in office 1 month ago on 06/06/22 At that time Abdominal pain, started about 3 weeks ago when she developed food poisoning she believes after eating a meal out at vacation. She thought symptoms resolved of nausea, vomiting and diarrhea. 1 week later (about 2 weeks ago) she had nausea. She woke up at 2 am with heartburn symptoms, took Tums and Bentyl. It was also upper abdominal discomfort. She had rectal spasms as well. Symptoms resolved. For the last 1-2 weeks now, epigastric abdominal discomfort by description. At 1-2/10 on pain scale it is just enough there to know it. Intermittent symptoms, especially when waking up in AM. No fevers or chills. No other associated symptoms. Occasional loose stools. She was started on PPI prevacid and prn use of carafate She had labs obtained which were normal including celiac panel, cBC, CMP, lipase and H pylori labs. She has improved her symptoms, now symptoms only occurring in the AM and PM, when waking up and before bed, as a sharp burning discomfort, when eating. Seems to then go away. Bloating symptoms are improving. She is taking the PPI daily in AM And probiotic at bedtime. HISTORY REVIEWED (electronic chart updated): PAST MEDICAL HISTORY Diagnosis Date Family history of arrhythmia 04/18/[address] Loo NEGATIVE HISTORY OF 04/17/11 normal color vision PAST SURGICAL HISTORY Procedure Laterality Date PAST SURGICAL HISTORY OF 05/2017 wisdom teeth extraction TONSILLECTOMY PRIMARY/SECONDARY <AGE 12 Tonsillectomy FAMILY HISTORY Problem Relation Age of Onset Cancer Maternal Grandmother Pancreatic Heart Maternal Grandfather arrythmia--has defibrillator Heart Paternal Grandfather fast heart pacemaker Diabetes Paternal Grandfather Heart Father PVCs Heart Maternal Uncle 46 congenital, CAD Alzheimer's Disease Other P Great-Uncle Social History Tobacco Use Smoking status: Never Smokeless tobacco: Never Vaping Use Vaping Use: Never used Substance Use Topics Alcohol use: Not Currently Drug use: No Current Outpatient Medications Medication Sig lansoprazole (PREVACID) 30 mg capsule Take 1 capsule by mouth daily before breakfast. 1/2 hr before meal. sucralfate (CARAFATE) 1 gram tablet Take 1 tablet by mouth before meals and at bedtime. Etonogestrel-Ethinyl Estradiol (NUVARING) 0.12-0.015 mg/24 hr vaginal ring Use 1 Each vaginally as directed. acyclovir (ZOVIRAX) 800 mg tablet Take 1 tablet by mouth three times daily. Take at first signs of cold sore outbreak x 5-7 days. dicyclomine (BENTYL) 10 mg capsule Take 1 capsule by mouth before meals and at bedtime. No current facility-administered medications for this visit. ALLERGIES Allergen Reactions Amoxicillin Hives REVIEW OF SYSTEMS: As noted in HPI PHYSICAL EXAMINATION: VIDEO EXAM: (if completed, performed via video enabled technology) GENERAL: alert and appropriate, in no distress, well-hydrated, well nourished, and happy, smiling, interactive ASSESSMENT: (R10.13) Epigastric abdominal pain (primary encounter diagnosis) (R14.0) Bloating PLAN: Continue Prevacid PPI daily in AM and prn use of Carafate, also continue probiotic. Reassess symptoms in 1-2 months- if feeling well after this, will try to taper off the prevacid. If symptoms not improved, then consider RUQ US and EGD There are no Patient Instructions on file for this visit. I spent a total of 20 minutes on the date of the service which included preparing to see the patient, [id number] patient care, completing clinical documentation, obtaining and/or reviewing separately obtained history, and ordering medications, tests, or procedures Adrian Downing DO documented in this encounter [facility] 07-07-2022 Miscellaneous Notes Notified her appt is for IN OFFICE. Dayan Moreira Ma documented in this encounter [facility] 06-06-2022 Instructions Adrian Downing DO - 06/06/2022 4:48 PM EDT PB8 Primadolphilus - 3-5 billion Florajen Florastor Take as a refrigerated dose in the evening daily- PROBIOTIC Choose one as above. Start Prevacid 30 mg a day in the morning. documented in this encounter [facility] 06-06-2022 History of Present illness Narrative CC: Digna Rendon is a 26 year old female who presents to the office for abd pain HPI: Abdominal pain, started about 3 weeks ago when she developed food poisoning she believes after eating a meal out at vacation. She thought symptoms resolved of nausea, vomiting and diarrhea. 1 week later (about 2 weeks ago) she had nausea. She woke up at 2 am with heartburn symptoms, took Tums and Bentyl. It was also upper abdominal discomfort. She had rectal spasms as well. Symptoms resolved. For the last 1-2 weeks now, epigastric abdominal discomfort by description. At 1-2/10 on pain scale it is just enough there to know it. Intermittent symptoms, especially when waking up in AM. No fevers or chills. No other associated symptoms. Occasional loose stools. PAST MEDICAL HISTORY Diagnosis Date Family history of arrhythmia 04/18/[address] Loo NEGATIVE HISTORY OF 04/17/11 normal color vision PAST SURGICAL HISTORY Procedure Laterality Date PAST SURGICAL HISTORY OF 05/2017 wisdom teeth extraction TONSILLECTOMY PRIMARY/SECONDARY <AGE 12 Tonsillectomy Current Outpatient Medications Medication Sig Etonogestrel-Ethinyl Estradiol (NUVARING) 0.12-0.015 mg/24 hr vaginal ring Use 1 Each vaginally as directed. acyclovir (ZOVIRAX) 800 mg tablet Take 1 tablet by mouth three times daily. Take at first signs of cold sore outbreak x 5-7 days. dicyclomine (BENTYL) 10 mg capsule Take 1 capsule by mouth before meals and at bedtime. lansoprazole (PREVACID) 30 mg capsule Take 1 capsule by mouth daily before breakfast. 1/2 hr before meal. No current facility-administered medications for this visit. ALLERGIES Allergen Reactions Amoxicillin Hives Social History Tobacco Use Smoking status: Never Smokeless tobacco: Never Vaping Use Vaping Use: Never used Substance Use Topics Alcohol use: Not Currently Drug use: No ROS: See HPI PE: BP 104/60 Pulse 80 Temp (Src) 98.2 (Left Tympanic) Resp 16 Wt 188 lb (85.3kg) LMP 04/28/2022 Gen: A&OX3, NAD, non-toxic appearing HEENT: PERRLA, EOMs intact b/l, nares without drainage, pharynx without erythema, exudate, lesions, or drainage. Uvula midline. Neck: No LAD, no thyromegaly, no meningismus. CV: RRR, no murmur Lungs: CTA b/l, no wheezing Skin: No rashes, lesions, or wounds on exposed skin. Abd: soft, + mild epigastric TTP, no masses, normal BS, no r/r/g ASSESSMENT/PLAN: 1. Bloating - ICD9: 787.3, ICD10: R14.0 (primary diagnosis) - labs as ordered, unsure cause of symptoms. Start on carafate and PPI Prevacid as ordered. Will follow up in 1 month. If not improving, then consider Abdominal US and EGD at that time as d/w her today. If worsening symptoms, she will go to EMERGENCY DEPARTMENT or call office - CBC + DIFF - LIPASE BLD - COMP METABOLIC PANEL - H PYLORI ABS, IGG AND IGA - CELIAC SCREEN WITH REFLEX - SUCRALFATE 1 GRAM TABLET 2. Epigastric abdominal pain - ICD9: 789.06, ICD10: R10.13 - labs as ordered, unsure cause of symptoms. Start on carafate and PPI Prevacid as ordered. Will follow up in 1 month. If not improving, then consider Abdominal US and EGD at that time as d/w her today. If worsening symptoms, she will go to EMERGENCY DEPARTMENT or call office - LANSOPRAZOLE 30 MG CAPSULE,DELAYED RELEASE - CBC + DIFF - LIPASE BLD - COMP METABOLIC PANEL - H PYLORI ABS, IGG AND IGA - CELIAC SCREEN WITH REFLEX - SUCRALFATE 1 GRAM TABLET Adrian Downing DO Return if no improvement. Follow up with Adrian Downing DO. To ER if develops chest pain, shortness of breath Discussed risks, benefits, alternatives, and potential side effects of medications. Patient/Guardian expressed understanding and agreed with the plan. See patient instructions. Adrian Downing DO [address] [place] [address] documented in this encounter [facility] 12-27-2021 History of Present illness Narrative Digna Rendon is a 26 year old female who presents for concerns. HPI: Patient has been taking ocps continuously and having menses every 3-4 months. Starting in June she tried to skip menses and had 12 days of bleeding. She stopped the ocp & restarted which resolved the bleeding. Then for 2 months she took the ocps cyclic. This month she tried to skip menses by continuing the active pills and more than a week later she started having bleeding. She then stopped the pills after 10 days of bleeding and then stopped the pills for 7 days. This week the bleeding finally stopped. Patient has gained 10-15 pounds over the past few months. She exercises regularly. OB History T0 L0 SAB0 IAB0 Ectopic0 Multiple0 Live Births0 Patient Registration Clerk History LMP: 12/04/2021 (Approximate), Having periods Age at Menarche: Age at First : Age at Menopause: Patient Registration Clerk History Comments: Sexual Activity: Yes; Male Contraception: Pill PAST MEDICAL HISTORY Diagnosis Date Family history of arrhythmia 04/18/[address] Loo NEGATIVE HISTORY OF 04/17/11 normal color vision PAST SURGICAL HISTORY Procedure Laterality Date PAST SURGICAL HISTORY OF 05/2017 wisdom teeth extraction TONSILLECTOMY PRIMARY/SECONDARY <AGE 12 Tonsillectomy FAMILY HISTORY Problem Relation Age of Onset Cancer Maternal Grandmother Pancreatic Heart Maternal Grandfather arrythmia--has defibrillator Heart Paternal Grandfather fast heart pacemaker Diabetes Paternal Grandfather Heart Father PVCs Heart Maternal Uncle 46 congenital, CAD Alzheimer's Disease Other P Great-Uncle Social History Tobacco Use Smoking status: Never Smoker Smokeless tobacco: Never Used Vaping Use Vaping Use: Never used Substance Use Topics Alcohol use: Not Currently Drug use: No Current Outpatient Medications Medication Sig norgestimate 0.25 mg-ethinyl estradiol 35 mcg (SPRINTEC) 0.25-35 mg-mcg per tablet Take 1 tablet by mouth once daily. Active pills only. Skip placebo week. New pack every 3 weeks. acyclovir (ZOVIRAX) 800 mg tablet Take 1 tablet by mouth three times daily. Take at first signs of cold sore outbreak x 5-7 days. dicyclomine (BENTYL) 10 mg capsule Take 1 capsule by mouth before meals and at bedtime. No current facility-administered medications for this visit. Allergies As of Date: 12/27/2021 Allergen Noted Reaction AMOXICILLIN 11/14/2006 Hives Fully Assessed 12/27/2021 Allergies and current medication updated:Yes EXAM: BP 112/72 Wt 192 lb 12.8 oz (87.5kg) LMP 12/04/2021 GENERAL: pleasant, female in no apparent distress ASSESSMENT AND PLAN: 26yo female with breakthrough spotting on continuous ocps Discussed R/B/A of management options as spotting likely from continuous ocp use. Patient wishes to switch to nuvaring. Use reviewed & patient will message with an update in 3-4 months. Call with other concerns. Medical Decision Making: Problems: Low: Acute, uncomplicated illness or injury Risk: Moderate: Drug management Medical Decision Making Level: 3 - Low Marianna De La Torre MD documented in this encounter [facility] Evaluation note Diagnosis Breakthrough bleeding on OCPs- Primary [facility]rhag[facility] Diagnosis Bloating- Primary Flatulence, eructation, and gas pain Epigastric abdominal pain Abdominal pain, epigastric [facility] Diagnosis Epigastric abdominal pain- Primary Abdominal pain, epigastric Bloating Flatulence, eructation, and gas pain [facility] Diagnosis 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 [facility] Diagnosis Irregular menses Irregular menstrual cycle [facility] Diagnosis Encounter for gynecological examination (general) (routine) without abnormal findings- Primary Screening for cervical cancer Screening for malignant neoplasm of the cervix Unintended weight gain Abnormal weight gain Irregular bleeding Irregular menstrual cycle [facility] Diagnosis Irregular periods- Primary Irregular menstrual cycle [facility]* Diagnosis 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 [facility] Diagnosis 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 [facility]* Diagnosis 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 [facility]* Diagnosis Well adult exam- Primary Routine general medical examination at a health care facility Less than 8 weeks gestation of state, incidental [facility]* Diagnosis Obesity affecting in first trimester, unspecified obesity type- Primary Encounter for supervision of high risk in first trimester, antepartum 12 weeks gestation of state, incidental Encounter for screening of mother Unspecified screening [facility] Diagnosis 12 weeks gestation of - Primary state, incidental Obesity affecting in first trimester, unspecified obesity type Encounter for supervision of high risk in first trimester, antepartum [facility] Diagnosis 16 weeks gestation of - Primary state, incidental Supervision of high risk in second trimester Unspecified high-risk Other obesity affecting in second trimester [facility] Diagnosis Encounter for anatomic survey- Primary Obesity affecting in first trimester, unspecified obesity type 19 weeks gestation of state, incidental [facility] Diagnosis Other obesity affecting in second trimester- Primary 19 weeks gestation of state, incidental Supervision of high risk in second trimester Unspecified high-risk [facility] Diagnosis Supervision of high risk in second trimester (HCC)- Primary Unspecified high-risk Other obesity affecting in second trimester (HCC) 23 weeks gestation of (HCC) state, incidental Screening for diabetes mellitus [facility] Diagnosis Supervision of high risk in third trimester (HCC)- Primary Unspecified high-risk Other obesity affecting in third trimester (HCC) 28 weeks gestation of ([facility]) state, incidental [facility]* Diagnosis Encounter for ultrasound to check growth ([facility])- Primary Encounter for routine screening for malformation using ultrasonics Obesity affecting in third trimester, unspecified obesity type (HCC) Excessive weight gain in , third trimester (HCC) 31 weeks gestation of (HCC) state, incidental [facility] Diagnosis Obesity affecting in third trimester, unspecified obesity type (HCC)- Primary Penicillin allergy Personal history of allergy to penicillin Excessive weight gain in , third trimester (HCC) Supervision of high risk in third trimester (HCC) Unspecified high-risk 31 weeks gestation of (HCC) state, incidental [facility] Diagnosis Sore throat- Primary Acute pharyngitis Acute cough [facility]* Diagnosis Encounter for supervision of high risk in first trimester, antepartum- Primary 7 weeks gestation of state, incidental with uncertain dates in first trimester Obesity affecting in first trimester, unspecified obesity type Nausea and vomiting during documented in this encounter [facility] note* Diagnosis Encounter for supervision of high risk in first trimester, antepartum- Primary documented in this encounter [facility] note* Diagnosis Supervision of high risk in third trimester (HCC)- Primary Unspecified high-risk Obesity affecting in third trimester, unspecified obesity type (HCC) Excessive weight gain in , third trimester (HCC) 33 weeks gestation of (HCC) state, incidental * Assessment & Plan Note - Marianna De La Torre MD - 03/23/2025 4:02 PM EDTAssociated Problem(s): Obesity affecting in third trimester (HCC) Ordered NSTs at 36 weeks Orders: URINE OB DIP B/O documented in this encounter [facility] note* Diagnosis Supervision of high risk in third trimester (HCC)- Primary Unspecified high-risk Obesity affecting in third trimester, unspecified obesity type (HCC) Excessive weight gain in , third trimester (HCC) 33 weeks gestation of (HCC) state, incidental Sore throat- Primary Acute pharyngitis Acute cough Dysphagia, unspecified type documented in this encounter [facility] note* Diagnosis Supervision of high risk in third trimester (HCC)- Primary Unspecified high-risk Obesity affecting in third trimester, unspecified obesity type (HCC) Excessive weight gain in , third trimester (HCC) 33 weeks gestation of (HCC) state, incidental Encounter for supervision of high risk in third trimester, antepartum (HCC)- Primary Obesity affecting in third trimester, unspecified obesity type (HCC) Supervision of high risk in third trimester (HCC) Unspecified high-risk 35 weeks gestation of ([facility]) state, incidental Uterine size-date discrepancy, third trimester ([facility]) * Assessment & Plan Note - Marianna De La Torre MD - 04/04/2025 2:24 PM EDTAssociated Problem(s): Encounter for supervision of high risk in third trimester, antepartum (HCC) Orders: URINE OB DIP B/O * Assessment & Plan Note - Marianna De La Torre MD - 04/04/2025 2:24 PM EDTAssociated Problem(s): Obesity affecting in third trimester (HCC) NST's at 36 weeks Growth US ordered Orders: URINE OB DIP B/O documented in this encounter [facility] note* Diagnosis Supervision of high risk in third trimester (HCC)- Primary Unspecified high-risk Obesity affecting in third trimester, unspecified obesity type (HCC) Excessive weight gain in , third trimester (HCC) 33 weeks gestation of ([facility]) state, incidental Encounter for supervision of high risk in third trimester, antepartum (HCC)- Primary Obesity affecting in third trimester, unspecified obesity type (HCC) Supervision of high risk in third trimester ([facility]) Unspecified high-risk 35 weeks gestation of ([facility]) state, incidental Uterine size-date discrepancy, third trimester ([facility]) 36 weeks gestation of ([facility])- Primary state, incidental Encounter for supervision of high risk in third trimester, antepartum ([facility]) Supervision of high risk in third trimester ([facility]) Unspecified high-risk documented in this encounter [facility] note* Diagnosis Supervision of high risk in third trimester (HCC)- Primary Unspecified high-risk Obesity affecting in third trimester, unspecified obesity type (HCC) Excessive weight gain in , third trimester (HCC) 33 weeks gestation of ([facility]) state, incidental Encounter for supervision of high risk in third trimester, antepartum (HCC)- Primary Obesity affecting in third trimester, unspecified obesity type (HCC) Supervision of high risk in third trimester (HCC) Unspecified high-risk 35 weeks gestation of ([facility]) state, incidental Uterine size-date discrepancy, third trimester ([facility]) 37 weeks gestation of ([facility])- Primary state, incidental Encounter for supervision of high risk in third trimester, antepartum (HCC) Supervision of high risk in third trimester ([facility]) Unspecified high-risk Obesity affecting in third trimester, unspecified obesity type (HCC) * Assessment & Plan Note - Marianna De La Torre MD - 04/20/2025 2:02 PM EDTAssociated Problem(s): Obesity affecting in third trimester (HCC) Growth US today (The EFW is 3629 g, at the 84%. AC is at the >99%) with BPP / Declines scheduling 39wk IOL but is OK with IOL around 40wks. Orders: URINE OB DIP B/O * Assessment & Plan Note - Marianna De La Torre MD - 04/20/2025 11:52 AM EDTAssociated Problem(s): Encounter for supervision of high risk in third trimester, antepartum ([facility]) Orders: URINE OB DIP B/O [facility] Supervision of high risk in third trimester (HCC)- Primary Unspecified high-risk Obesity affecting in third trimester, unspecified obesity type (HCC) Excessive weight gain in , third trimester (HCC) 33 weeks gestation of (HCC) state, incidental Encounter for supervision of high risk in third trimester, antepartum (HCC)- Primary Obesity affecting in third trimester, unspecified obesity type (HCC) Supervision of high risk in third trimester (HCC) Unspecified high-risk 35 weeks gestation of (HCC) state, incidental Uterine size-date discrepancy, third trimester ([facility]) Encounter for ultrasound to check growth ([facility])- Primary Encounter for routine screening for malformation using ultrasonics Obesity affecting in third trimester, unspecified obesity type (HCC) Uterine size-date discrepancy, third trimester (HCC) 37 weeks gestation of (HCC) state, incidental 37 weeks gestation of (HCC)- Primary state, incidental Encounter for supervision of high risk in third trimester, antepartum (HCC) Supervision of high risk in third trimester (HCC) Unspecified high-risk Obesity affecting in third trimester, unspecified obesity type (HCC) documented in this encounter [facility] note* Diagnosis Supervision of high risk in third trimester (HCC)- Primary Unspecified high-risk Obesity affecting in third trimester, unspecified obesity type (HCC) Excessive weight gain in , third trimester (HCC) 33 weeks gestation of ([facility]) state, incidental Encounter for supervision of high risk in third trimester, antepartum (HCC)- Primary Obesity affecting in third trimester, unspecified obesity type (HCC) Supervision of high risk in third trimester (HCC) Unspecified high-risk 35 weeks gestation of ([facility]) state, incidental Uterine size-date discrepancy, third trimester ([facility]) 37 weeks gestation of ([facility])- Primary state, incidental Encounter for supervision of high risk in third trimester, antepartum ([facility]) Supervision of high risk in third trimester ([facility]) Unspecified high-risk Obesity affecting in third trimester, unspecified obesity type ([facility]) Encounter for supervision of high risk in third trimester, antepartum ([facility])- Primary 38 weeks gestation of ([facility]) state, incidental Supervision of high risk in third trimester ([facility]) Unspecified high-risk Obesity affecting in third trimester, unspecified obesity type (HCC) documented in this encounter [facility] note* Diagnosis Supervision of high risk in third trimester (HCC)- Primary Unspecified high-risk Obesity affecting in third trimester, unspecified obesity type (HCC) Excessive weight gain in , third trimester ([facility]) 33 weeks gestation of ([facility]) state, incidental Encounter for supervision of high risk in third trimester, antepartum (HCC)- Primary Obesity affecting in third trimester, unspecified obesity type (HCC) Supervision of high risk in third trimester ([facility]) Unspecified high-risk 35 weeks gestation of ([facility]) state, incidental Uterine size-date discrepancy, third trimester ([facility]) 37 weeks gestation of ([facility])- Primary state, incidental Encounter for supervision of high risk in third trimester, antepartum (HCC) Supervision of high risk in third trimester ([facility]) Unspecified high-risk Obesity affecting in third trimester, unspecified obesity type (HCC) 39 weeks gestation of ([facility])- Primary state, incidental Encounter for supervision of high risk in third trimester, antepartum (HCC) documented in this encounter [facility] for referral (narrative)* Diagnostic Procedure Only (Routine) - Closed Specialty Diagnoses / Procedures Referred By Sunnyac t Referred To Contact [facility] Diagnoses Irregular menses Procedures US FEMALE PELVIS TRANSVAG US TRANSVAGINAL Jeff Oquendo APRN.CNP [address] [place] [address] [place] [id number] Referral ID Status Reason Start Date Expiration Date V isits Requested Visits Authorized [id number] Closed Auto-Generate d Referral 10/28/2023 11/26/2024 1 1 [facility] for referral (narrative)* Diagnostic Procedure Only (Routine) - New Request Specialty Diagnoses / Procedures Referred By Sunnyac t Referred To Contact [facility] Diagnoses Obesity affecting in first trimester, unspecified obesity type Procedures OBSTETRIC ULTRASOUND WHI US PREG UTERUS AFTER 1ST TRIMEST GESTATION Pool Schultz DO [address] [place] [address] [facility] [address] [place] [address] Referral ID Status Reason Start Date Expiration Date Visits Requested Visits Authorized [id number] New Request Auto-Generat ed Referral 10/27/2024 10/27/2025 1 1 [facility] for referral (narrative)* Diagnostic Procedure Only (Routine) - Authorized Specialty Diagnoses / Procedures Referred By Contac t Referred To Contact [facility] Diagnoses Encounter for supervision of high risk in first trimester, antepartum 7 weeks gestation of Procedures NUCHAL TRANSLUCENCY WHI US NUCHAL TRANSLUCENCY 1ST GESTATION Jeff Oquendo APRN.CNP [address] [place] [address] [facility] [address] [place] [address] Referral ID Status Reason Start Date Expiration Date Visits Requested Visits Authorized [id number] Authorized Auto-Generat ed Referral 4 09/22/2025 1 1 * Diagnostic Procedure Only (Routine) - Authorized Specialty Diagnoses / Procedures Referred By Contac t Referred To Contact [facility] Diagnoses Encounter for supervision of high risk in first trimester, antepartum with uncertain dates in first trimester Obesity affecting in first trimester, unspecified obesity type Procedures OBSTETRIC ULTRASOUND WHI US PREG UTERUS AFTER 1ST TRIMEST GESTATION Jeff Oquendo APRN.CNP [address] [place] [address] [address] Referral ID Status Reason Start Date Expiration Date Visits Requested Visits Authorized [id number] Authorized Auto-Generat ed Referral 4 09/22/2025 1 1 [facility] Diagnostic Procedure Only (Routine) - Closed Specialty Diagnoses / Procedures Referred By Contac t Referred To Contact [facility] Diagnoses Obesity affecting in third trimester, unspecified obesity type (HCC) Uterine size-date discrepancy, third trimester (HCC) Procedures OBSTETRIC ULTRASOUND WHI US PREG UTERUS AFTER 1ST TRIMEST GESTATION Marianna De La Torre MD [address] [place] [address] Phone: tel: fax: [address] [phone] Referral ID Status Reason Start Date Expiration Date V isits Requested Visits Authorized [id number] Closed Auto-Generate d Referral 04/04/2025 04/04/2026 1 1 [facility] Summary Purpose Family History No Family History Records FoundNo Family History Records Found Advance Directives No Advanced Directives Records FoundNo Advanced Directives Records Found Additional Source Comments Source Comments (unrecognize d section and content) In the event this informatio n is protected by the Federal Confidentiality of Alcohol and Drug Abuse Patient Records regulations: The Federal rules restrict any use of the information to criminally investigate or prosecute any alcohol or drug abuse patient.[facility] the event this information is protected by the Federal Confidentiality of Alcohol and Drug Abuse Patient Records regulations: The Federal rules restrict any use of the information to criminally investigate or prosecute any alcohol or drug abuse patient.[facility] the event this information is protected by the Federal Confidentiality of Alcohol and Drug Abuse Patient Records regulations: The Federal rules restrict any use of the information to criminally investigate or prosecute any alcohol or drug abuse patient.[facility] the event this information is protected by the Federal Confidentiality of Alcohol and Drug Abuse Patient Records regulations: The Federal rules restrict any use of the information to criminally investigate or prosecute any alcohol or drug abuse patient.[facility] the event this information is protected by the Federal Confidentiality of Alcohol and Drug Abuse Patient Records regulations: The Federal rules restrict any use of the information to criminally investigate or prosecute any alcohol or drug abuse patient.[facility] the event this information is protected by the Federal Confidentiality of Alcohol and Drug Abuse Patient Records regulations: The Federal rules restrict any use of the information to criminally investigate or prosecute any alcohol or drug abuse patient.[facility] the event this information is protected by the Federal Confidentiality of Alcohol and Drug Abuse Patient Records regulations: The Federal rules restrict any use of the information to criminally investigate or prosecute any alcohol or drug abuse patient.[facility] the event this information is protected by the Federal Confidentiality of Alcohol and Drug Abuse Patient Records regulations: The Federal rules restrict any use of the information to criminally investigate or prosecute any alcohol or drug abuse patient.[facility] the event this information is protected by the Federal Confidentiality of Alcohol and Drug Abuse Patient Records regulations: The Federal rules restrict any use of the information to criminally investigate or prosecute any alcohol or drug abuse patient.[facility] the event this information is protected by the Federal Confidentiality of Alcohol and Drug Abuse Patient Records regulations: The Federal rules restrict any use of the information to criminally investigate or prosecute any alcohol or drug abuse patient.[facility] the event this information is protected by the Federal Confidentiality of Alcohol and Drug Abuse Patient Records regulations: The Federal rules restrict any use of the information to criminally investigate or prosecute any alcohol or drug abuse patient.[facility] the event this information is protected by the Federal Confidentiality of Alcohol and Drug Abuse Patient Records regulations: The Federal rules restrict any use of the information to criminally investigate or prosecute any alcohol or drug abuse patient.[facility] the event this information is protected by the Federal Confidentiality of Alcohol and Drug Abuse Patient Records regulations: The Federal rules restrict any use of the information to criminally investigate or prosecute any alcohol or drug abuse patient.[facility] HospitalIn the event this information is protected by the Federal Confidentiality of Alcohol and Drug Abuse Patient Records regulations: The Federal rules restrict any use of the information to criminally investigate or prosecute any alcohol or drug abuse patient.[facility] HospitalIn the event this information is protected by the Federal Confidentiality of Alcohol and Drug Abuse Patient Records regulations: The Federal rules restrict any use of the information to criminally investigate or prosecute any alcohol or drug abuse patient.[facility] HospitalIn the event this information is protected by the Federal Confidentiality of Alcohol and Drug Abuse Patient Records regulations: The Federal rules restrict any use of the information to criminally investigate or prosecute any alcohol or drug abuse patient.[facility] HospitalIn the event this information is protected by the Federal Confidentiality of Alcohol and Drug Abuse Patient Records regulations: The Federal rules restrict any use of the information to criminally investigate or prosecute any alcohol or drug abuse patient.[facility] HospitalIn the event this information is protected by the Federal Confidentiality of Alcohol and Drug Abuse Patient Records regulations: The Federal rules restrict any use of the information to criminally investigate or prosecute any alcohol or drug abuse patient.[facility] HospitalIn the event this information is protected by the Federal Confidentiality of Alcohol and Drug Abuse Patient Records regulations: The Federal rules restrict any use of the information to criminally investigate or prosecute any alcohol or drug abuse patient.[facility] HospitalIn the event this information is protected by the Federal Confidentiality of Alcohol and Drug Abuse Patient Records regulations: The Federal rules restrict any use of the information to criminally investigate or prosecute any alcohol or drug abuse patient.[facility] HospitalIn the event this information is protected by the Federal Confidentiality of Alcohol and Drug Abuse Patient Records regulations: The Federal rules restrict any use of the information to criminally investigate or prosecute any alcohol or drug abuse patient.[facility] HospitalIn the event this information is protected by the Federal Confidentiality of Alcohol and Drug Abuse Patient Records regulations: The Federal rules restrict any use of the information to criminally investigate or prosecute any alcohol or drug abuse patient.[facility] HospitalIn the event this information is protected by the Federal Confidentiality of Alcohol and Drug Abuse Patient Records regulations: The Federal rules restrict any use of the information to criminally investigate or prosecute any alcohol or drug abuse patient.[facility] HospitalIn the event this information is protected by the Federal Confidentiality of Alcohol and Drug Abuse Patient Records regulations: The Federal rules restrict any use of the information to criminally investigate or prosecute any alcohol or drug abuse patient.[facility] HospitalIn the event this information is protected by the Federal Confidentiality of Alcohol and Drug Abuse Patient Records regulations: The Federal rules restrict any use of the information to criminally investigate or prosecute any alcohol or drug abuse patient.[facility] HospitalIn the event this information is protected by the Federal Confidentiality of Alcohol and Drug Abuse Patient Records regulations: The Federal rules restrict any use of the information to criminally investigate or prosecute any alcohol or drug abuse patient.[facility] HospitalIn the event this information is protected by the Federal Confidentiality of Alcohol and Drug Abuse Patient Records regulations: The Federal rules restrict any use of the information to criminally investigate or prosecute any alcohol or drug abuse patient.[facility] HospitalIn the event this information is protected by the Federal Confidentiality of Alcohol and Drug Abuse Patient Records regulations: The Federal rules restrict any use of the information to criminally investigate or prosecute any alcohol or drug abuse patient.[facility] HospitalIn the event this information is protected by the Federal Confidentiality of Alcohol and Drug Abuse Patient Records regulations: The Federal rules restrict any use of the information to criminally investigate or prosecute any alcohol or drug abuse patient.[facility] HospitalIn the event this information is protected by the Federal Confidentiality of Alcohol and Drug Abuse Patient Records regulations: The Federal rules restrict any use of the information to criminally investigate or prosecute any alcohol or drug abuse patient.[facility] HospitalIn the event this information is protected by the Federal Confidentiality of Alcohol and Drug Abuse Patient Records regulations: The Federal rules restrict any use of the information to criminally investigate or prosecute any alcohol or drug abuse patient.[facility] HospitalIn the event this information is protected by the Federal Confidentiality of Alcohol and Drug Abuse Patient Records regulations: The Federal rules restrict any use of the information to criminally investigate or prosecute any alcohol or drug abuse patient.[facility] HospitalIn the event this information is protected by the Federal Confidentiality of Alcohol and Drug Abuse Patient Records regulations: The Federal rules restrict any use of the information to criminally investigate or prosecute any alcohol or drug abuse patient.[facility] HospitalIn the event this information is protected by the Federal Confidentiality of Alcohol and Drug Abuse Patient Records regulations: The Federal rules restrict any use of the information to criminally investigate or prosecute any alcohol or drug abuse patient.[facility] HospitalIn the event this information is protected by the Federal Confidentiality of Alcohol and Drug Abuse Patient Records regulations: The Federal rules restrict any use of the information to criminally investigate or prosecute any alcohol or drug abuse patient.[facility] HospitalIn the event this information is protected by the Federal Confidentiality of Alcohol and Drug Abuse Patient Records regulations: The Federal rules restrict any use of the information to criminally investigate or prosecute any alcohol or drug abuse patient.[facility] HospitalIn the event this information is protected by the Federal Confidentiality of Alcohol and Drug Abuse Patient Records regulations: The Federal rules restrict any use of the information to criminally investigate or prosecute any alcohol or drug abuse patient.[facility] HospitalIn the event this information is protected by the Federal Confidentiality of Alcohol and Drug Abuse Patient Records regulations: The Federal rules restrict any use of the information to criminally investigate or prosecute any alcohol or drug abuse patient.[facility] HospitalIn the event this information is protected by the Federal Confidentiality of Alcohol and Drug Abuse Patient Records regulations: The Federal rules restrict any use of the information to criminally investigate or prosecute any alcohol or drug abuse patient.[facility] HospitalIn the event this information is protected by the Federal Confidentiality of Alcohol and Drug Abuse Patient Records regulations: The Federal rules restrict any use of the information to criminally investigate or prosecute any alcohol or drug abuse patient.[facility] HospitalIn the event this information is protected by the Federal Confidentiality of Alcohol and Drug Abuse Patient Records regulations: The Federal rules restrict any use of the information to criminally investigate or prosecute any alcohol or drug abuse patient.[facility] HospitalIn the event this information is protected by the Federal Confidentiality of Alcohol and Drug Abuse Patient Records regulations: The Federal rules restrict any use of the information to criminally investigate or prosecute any alcohol or drug abuse patient.[facility] HospitalIn the event this information is protected by the Federal Confidentiality of Alcohol and Drug Abuse Patient Records regulations: The Federal rules restrict any use of the information to criminally investigate or prosecute any alcohol or drug abuse patient.[facility] HospitalIn the event this information is protected by the Federal Confidentiality of Alcohol and Drug Abuse Patient Records regulations: The Federal rules restrict any use of the information to criminally investigate or prosecute any alcohol or drug abuse patient.[facility] HospitalIn the event this information is protected by the Federal Confidentiality of Alcohol and Drug Abuse Patient Records regulations: The Federal rules restrict any use of the information to criminally investigate or prosecute any alcohol or drug abuse patient.[facility] Reason for Visit (unrecogniz ed section and content) Reason Comments Irregular Menstrual Cycle Specialty Diagnoses / Procedures Referred By Contmikaela t Referred To Contact [facility]ER Diagnoses irregular bleeding. Bleeding for 2 weeks Procedures MYC SPECIALIST OFFICE VISIT Self Marianna De La Torre MD [address] [place] [address] Referral ID Status Reason Start Date Expiration Date Visits Re quested Visits Authorized [id number] Closed 12/27/2021 10/04/2022 1 1 Reason Comments Abdominal Pain dull epigastric pain 2 weeks Reason Comments Follow Up Reason Onset Date Comments Refill Request 05/06/2023 Reason Comments Radiology US Specialty Diagnoses / Procedures Referred By Contmikaela t Referred To Contact US IMAGING Diagnoses Irregular menses Procedures US FEMALE PELVIS TRANSVAG US TRANSVAGINAL Jeff Oquendo, ZOE.REIMBURSEMENT DIRECTOR [address] [place] [address] [place] [address] Referral ID Status Reason Start Date Expiration Date V isits Requested Visits Authorized [id number] Closed Auto-Generate d Referral 10/28/2023 11/26/2024 1 1 Reason Comments Well Woman Reason Onset Date Comments Refill Request 06/08/2024 Reason Onset Date Comments Refill Request 07/15/2024 Reason Comments US Specialty Diagnoses / Procedures Referred By Contac t Referred To Contact [facility] Diagnoses Encounter for supervision of high risk in first trimester, antepartum 7 weeks gestation of Procedures NUCHAL TRANSLUCENCY WHI US NUCHAL TRANSLUCENCY 1ST GESTATION Jeff Oquendo APRN.REIMBURSEMENT DIRECTOR [address] [place] [address] [facility] [address] [place] [address] Referral ID Status Reason Start Date Expiration Date V isits Requested Visits Authorized [id number] Closed Auto-Generate d Referral 09/22/2024 09/22/2025 1 1 Reason Onset Date Comments Care 10/27/2024 Reason Onset Date Comments Care 11/24/2024 Reason Comments Breast Pump Reason Comments US Specialty Diagnoses / Procedures Referred By Contac t Referred To Contact [facility] Diagnoses Obesity affecting in first trimester, unspecified obesity type Procedures OBSTETRIC ULTRASOUND WHI US PREG UTERUS AFTER 1ST TRIMEST GESTATION Pool Schultz, DO [address] [place] [address] Phone: tel: fax: [address] [address] Referral ID Status Reason Start Date Expiration Date V isits Requested Visits Authorized [id number] Closed Auto-Generate d Referral 10/27/2024 10/27/2025 1 1 Reason Onset Date Comments Care 12/15/2024 Reason Onset Date Comments Care 01/12/2025 Reason Onset Date Comments Care 02/10/2025 Specialty Diagnoses / Procedures Referred By Elsie shultz Referred To Contact [facility] Diagnoses Obesity affecting in third trimester, unspecified obesity type (HCC) Excessive weight gain in , third trimester (HCC) Procedures OBSTETRIC ULTRASOUND WHI US PREG UTERUS AFTER 1ST TRIMEST GESTATION Jeff Oquendo, ZOE.REIMBURSEMENT DIRECTOR [address] [place] [address] Phone: tel: fax: [facility] [address] [place] [address] Referral ID Status Reason Start Date Expiration Date V isits Requested Visits Authorized [id number] Closed Auto-Generate d Referral 02/24/2025 02/24/2026 1 1 Reason Onset Date Comments Care 03/09/2025 Reason Comments Patient Update Reason Comments Cough X3 weeks with conges tion and sore throat that comes and goes Reason Comments Initial OB Visit Reason Onset Date Comments Care 03/23/2025 Reason Comments Sore Throat Started with a cold weekend then 8-9 days ago sore throat started came in got strep test was negative , but still there really bad even after tryin everything over the counter pepcid no other symptoms just cough Reason Onset Date Comments Care 04/04/2025 Reason Onset Date Comments Care 04/12/2025 Reason Onset Date Comments Care 04/20/2025 Reason Onset Date Comments Population Health Navigation Outreach 04/21/2025 to PCP/OB Reason Onset Date Comments Care 04/27/2025 Reason Onset Date Comments Care 05/01/2025 Care Teams (unrecognized sec tion and content) Audio/Video Engineer Relationship Specialty Start Date End Date Adrian Downing DO [address] [place], [place] [id number] PCP - General Family Practice 12/14/15 Audio/Video Engineer Relationship Specialty Start Date End Date Adrian Downing DO [address] [place], [place] [id number] PCP - General Family Practice 12/14/15 Audio/Video Engineer Relationship Specialty Start Date End Date Adrian Downing DO [address] [place] [address] PCP - General Family Medicine 12/14/15 Audio/Video Engineer Relationship Specialty Start Date End Date Adrian Downing DO [address] [place] [address] PCP - General Family Medicine 12/14/15 Audio/Video Engineer Relationship Specialty Start Date End Date Adrian Downing DO [address] [facility] [place] [address] PCP - General Family Medicine 12/14/15 Audio/Video Engineer Relationship Specialty Start Date End Date Adrian Downing DO [address] [facility] [place] [address] PCP - General Family Medicine 12/14/15 Audio/Video Engineer Relationship Specialty Start Date End Date Adrian Downing DO [address] [facility] [place] [address] PCP - General Family Medicine 12/14/15 Audio/Video Engineer Relationship Specialty Start Date End Date Adrian Downing DO [address] [facility] [place] [address] PCP - General Family Medicine 12/14/15 Audio/Video Engineer Relationship Specialty Start Date End Date Adrian Downing DO [address] [facility] [place] [place] [address] PCP - General Family Medicine 12/14/15 Audio/Video Engineer Relationship Specialty Start Date End Date Adrian Downing DO [address] [facility] [place] [address] PCP - General Family Medicine 12/14/15 Audio/Video Engineer Relationship Specialty Start Date End Date Adrian Downing DO [address] [place] [address] PCP - General Family Medicine 12/14/15 Audio/Video Engineer Relationship Specialty Start Date End Date Adrian Downing DO [address] [facility] [place] [address] PCP - General Family Medicine 12/14/15 Audio/Video Engineer Relationship Specialty Start Date End Date Adrian Downing DO [address] [place] [address] PCP - General Family Medicine 12/14/15 Audio/Video Engineer Relationship Specialty Start Date End Date Adrian Downing DO [address] [place] [address] PCP - General Family Medicine 12/14/15 Audio/Video Engineer Relationship Specialty Start Date End Date Adrian Downing DO [address] [place] [address] PCP - General Family Medicine 12/14/15 Janneth Donato, DATAWAREHOUSE DEVELOPER.REIMBURSEMENT DIRECTOR [address] [place] [address] Plant Pathology Teacher Family Medicine 09/11/24 Ashleigh Whyte, DATAWAREHOUSE DEVELOPER.REIMBURSEMENT DIRECTOR [address] [place] [address] Plant Pathology Teacher Family Medicine 09/11/24 Audio/Video Engineer Relationship Specialty Start Date End Date Adrian Downing DO [address] [place] [address] PCP - General Family Medicine 12/14/15 Janneth Donato, DATAWAREHOUSE DEVELOPER.REIMBURSEMENT DIRECTOR [address] [place] [address] Plant Pathology Teacher Family Medicine 09/11/24 Ashleigh Whyte, DATAWAREHOUSE DEVELOPER.REIMBURSEMENT DIRECTOR [address] [place] [address] Plant Pathology Teacher Family Medicine 09/11/24 Audio/Video Engineer Relationship Specialty Start Date End Date Adrian Downing DO [address] [place] [address] PCP - General Family Medicine 12/14/15 Janneth Donato, DATAWAREHOUSE DEVELOPER.REIMBURSEMENT DIRECTOR [address] [place] [address] Plant Pathology Teacher Family Medicine 09/11/24 Ashleigh Whyte, DATAWAREHOUSE DEVELOPER.REIMBURSEMENT DIRECTOR [address] [place] [address] Plant Pathology Teacher Family Medicine 09/11/24 Audio/Video Engineer Relationship Specialty Start Date End Date Adrian Downing DO [address] [place] [address] PCP - General Family Medicine 12/14/15 Janneth Donato, DATAWAREHOUSE DEVELOPER.REIMBURSEMENT DIRECTOR [address] [place] [address] Plant Pathology Teacher Family Medicine 09/11/24 Ashleigh Whyte, DATAWAREHOUSE DEVELOPER.REIMBURSEMENT DIRECTOR [address] [place] [address] Plant Pathology Teacher Family Medicine 09/11/24 Audio/Video Engineer Relationship Specialty Start Date End Date Adrian Downing DO [address] [place] [address] PCP - General Family Medicine 12/14/15 Janneth Donato, DATAWAREHOUSE DEVELOPER.REIMBURSEMENT DIRECTOR [address] [place] [address] Plant Pathology Teacher Family Medicine 09/11/24 IsabellAshleigh, DATAWAREHOUSE DEVELOPER.REIMBURSEMENT DIRECTOR [address] [place] [address] [facility] Audio/Video Engineer Relationship Specialty Start Date End Date Adrian Downing DO [address] [place] [address] PCP - General Family Medicine 12/14/15 Janneth Donato, DATAWAREHOUSE DEVELOPER.REIMBURSEMENT DIRECTOR [address] [place] [address] [facility] 09/11/24 IsabellAshleigh, DATAWAREHOUSE DEVELOPER.REIMBURSEMENT DIRECTOR [address] [place] [address] [facility] 09/11/24 Audio/Video Engineer Relationship Specialty Start Date End Date Adrian Downing DO [address] [place] [address] PCP - General Family Medicine 12/14/15 IsabellAshleigh, DATAWAREHOUSE DEVELOPER.REIMBURSEMENT DIRECTOR [address] [place] [address] [facility] 09/11/24 Audio/Video Engineer Relationship Specialty Start Date End Date Adrian Downing DO [address] [place] [address] PCP - General Family Medicine 12/14/15 IsabellAshleigh, DATAWAREHOUSE DEVELOPER.REIMBURSEMENT DIRECTOR [address] [place] [address] [facility] 09/11/24 Audio/Video Engineer Relationship Specialty Start Date End Date Adrian Downing DO [address] [facility] [place] [place] [address] PCP - General Family Medicine 12/14/15 Janneth Donato, DATAWAREHOUSE DEVELOPER.REIMBURSEMENT DIRECTOR [address] [place] [address] [facility] 09/11/24 12/23/24 Ashleigh Whyte, DATAWAREHOUSE DEVELOPER.REIMBURSEMENT DIRECTOR [address] [place] [address] [facility] 09/11/24 Audio/Video Engineer Relationship Specialty Start Date End Date Adrian Downing DO [address] [place] [address] PCP - General Family Medicine 12/14/15 IsabellAshleigh, DATAWAREHOUSE DEVELOPER.REIMBURSEMENT DIRECTOR [address] [facility] [place] [address] [facility] 09/11/24 Audio/Video Engineer Relationship Specialty Start Date End Date Adrian Downing DO [address] [place] [address] PCP - General Family Medicine 12/14/15 IsabellAshleigh, DATAWAREHOUSE DEVELOPER.REIMBURSEMENT DIRECTOR [address] [place] [address] [facility] 09/11/24 Audio/Video Engineer Relationship Specialty Start Date End Date Adrian Downing DO [address] [facility] [place] [address] PCP - General Family Medicine 12/14/15 IsabellAshleigh, DATAWAREHOUSE DEVELOPER.REIMBURSEMENT DIRECTOR [address] [facility] [place] [address] Plant Pathology Teacher Family [facility] 09/11/24 Audio/Video Engineer Relationship Specialty Start Date End Date Adrian Downing DO [address] [facility] [place] [address] PCP - General Family Medicine 12/14/15 IsabellAshleigh, DATAWAREHOUSE DEVELOPER.REIMBURSEMENT DIRECTOR [address] [place] [address] [facility] 09/11/24 Audio/Video Engineer Relationship Specialty Start Date End Date Adrian Downing DO [address] [place] [address] PCP - General Family Medicine 12/14/15 Janneth Donato, DATAWAREHOUSE DEVELOPER.REIMBURSEMENT DIRECTOR [address] [place] [address] Plant Pathology Teacher Family Medicine 09/11/24 IsabellAshleigh, DATAWAREHOUSE DEVELOPER.REIMBURSEMENT DIRECTOR [address] [place] [address] [facility] 09/11/24 Audio/Video Engineer Relationship Specialty Start Date End Date Adrian Downing DO [address] [place] [address] PCP - General Family Medicine 12/14/15 Janneth Donato, DATAWAREHOUSE DEVELOPER.REIMBURSEMENT DIRECTOR [address] [place] [address] Plant Pathology Teacher Family [facility] 09/11/24 IsabellAshleigh, DATAWAREHOUSE DEVELOPER.REIMBURSEMENT DIRECTOR [address] [place] [address] Plant Pathology Teacher [facility] 09/11/24 Audio/Video Engineer Relationship Specialty Start Date End Date Adrian Downing DO [address] [place] [address] PCP - General Family Medicine 12/14/15 Ashleigh Whyte, DATAWAREHOUSE DEVELOPER.REIMBURSEMENT DIRECTOR [address] [place] [address] Plant Pathology Teacher Family [facility] 09/11/24 Keyla Garsia, DATAWAREHOUSE DEVELOPER.REIMBURSEMENT DIRECTOR [address] [place] [address] [facility] 03/20/25 Audio/Video Engineer Relationship Specialty Start Date End Date Adrian Downing DO [address] [place] [address] PCP - General Family Medicine 12/14/15 IsabellAshleigh, DATAWAREHOUSE DEVELOPER.REIMBURSEMENT DIRECTOR [address] [place] [address] [facility] 09/11/24 Keyla Garsia, DATAWAREHOUSE DEVELOPER.REIMBURSEMENT DIRECTOR [address] [facility] [place] [address] [facility] 03/20/25 Audio/Video Engineer Relationship Specialty Start Date End Date Adrian Downing DO [address] [place] [address] PCP - General Family Medicine 12/14/15 Ashleigh Whyte, DATAWAREHOUSE DEVELOPER.REIMBURSEMENT DIRECTOR [address] [place] [address] Plant Pathology Teacher Family Medicine 09/11/24 Keyla Garsia, DATAWAREHOUSE DEVELOPER.REIMBURSEMENT DIRECTOR [address] [place] [address] Plant Pathology Teacher Family Medicine 03/20/25 Audio/Video Engineer Relationship Specialty Start Date End Date Adrian Downing DO [address] [place] [address] PCP - General Family Medicine 12/14/15 Ashleigh Whyte, DATAWAREHOUSE DEVELOPER.REIMBURSEMENT DIRECTOR [address] [place] [address] Plant Pathology Teacher Family Medicine 09/11/24 Keyla Garsia, DATAWAREHOUSE DEVELOPER.REIMBURSEMENT DIRECTOR [address] [place] [address] [facility] 03/20/25 Audio/Video Engineer Relationship Specialty Start Date End Date Adrian Downing DO [address] [place] [address] PCP - General Family Medicine 12/14/15 Ashleigh Whyte, DATAWAREHOUSE DEVELOPER.REIMBURSEMENT DIRECTOR [address] [place] [address] Plant Pathology Teacher Family Medicine 09/11/24 Keyla Garsia, DATAWAREHOUSE DEVELOPER.REIMBURSEMENT DIRECTOR [address] [place] [address] [facility] 03/20/25 Audio/Video Engineer Relationship Specialty Start Date End Date Adrian Downing DO [address] [place] [address] PCP - General Family Medicine 12/14/15 Ashleigh Whyte, DATAWAREHOUSE DEVELOPER.REIMBURSEMENT DIRECTOR [address] [place] [id number] [employer] Teacher Family Medicine 09/11/24 Keyla Garsia, DATAWAREHOUSE DEVELOPER.REIMBURSEMENT DIRECTOR [address] [place] [address] [facility] 03/20/25 Audio/Video Engineer Relationship Specialty Start Date End Date Adrian Downing DO [address] [place] [address] PCP - General Family Medicine 12/14/15 Ashleigh Whyte, DATAWAREHOUSE DEVELOPER.REIMBURSEMENT DIRECTOR [address] [place] [address] [facility] Medicine 09/11/24 Keyla Garsia, DATAWAREHOUSE DEVELOPER.REIMBURSEMENT DIRECTOR [address] [place] [address] [facility] 03/20/25 Audio/Video Engineer Relationship Specialty Start Date End Date Adrian Downing DO [address] [place] [address] PCP - General Family Medicine 12/14/15 Ashleigh Whyte, DATAWAREHOUSE DEVELOPER.REIMBURSEMENT DIRECTOR [address] [place] [address] [facility] 09/11/24 Keyla Garsia, DATAWAREHOUSE DEVELOPER.REIMBURSEMENT DIRECTOR [address] [place] [address] [facility] 03/20/25 Audio/Video Engineer Relationship Specialty Start Date End Date Adrian Downing DO [address] [place] [address] PCP - General Family Medicine 12/14/15 Ashleigh Whyte, DATAWAREHOUSE DEVELOPER.REIMBURSEMENT DIRECTOR [address] [place] [address] [facility] 09/11/24 Keyla Garsia, DATAWAREHOUSE DEVELOPER.REIMBURSEMENT DIRECTOR [address] [place] [address] [facility] 03/20/25 Audio/Video Engineer Relationship Specialty Start Date End Date Adrian Downing DO [address] [place] [address] PCP - General Family Medicine 12/14/15 IsabellAshleigh, DATAWAREHOUSE DEVELOPER.REIMBURSEMENT DIRECTOR [address] [place] [address] [facility] 09/11/24 Keyla Garsia, DATAWAREHOUSE DEVELOPER.REIMBURSEMENT DIRECTOR [address] [place], [place] [address] [phone] [facility] 03/20/25 INFORMATION SOURCE (unrecogn ized section and content) DATE CREATED AUTHOR 12/28/2023 [facility] DATE CREATED AUTHOR AUTHOR'S REAL AGGARWAL 05/01/2025 [facility] FOR RECORDS PERTAINING TO PATIENTS WHO ARE OR HAVE BEEN ENROLLED IN A CHEMICAL DEPENDENCY/SUBSTANCEABUSE PROGRAM, SOME INFORMATION MAY BE OMITTED. This clinical summary was aggregated from multiple sources. Caution should be exercised in using it in the provision of clinical care. This summary normalizes information from multiple sources, and as a consequence, information in this document may materially change the coding, format and clinical context of patient data. In addition, data may be omitted in some cases. CLINICAL DECISIONS SHOULD BE BASED ON THE PRIMARY CLINICAL RECORDS. [facility]. provides no warranty or guarantee of the accuracy or completeness of information in this document.
[2025-05-05] MEDS: Lactated Ringers 1,000 ML 50 ML IV (07:50)
[2025-05-05 08:29] LABS: Hematocrit 31.6 % (37-47); Hemoglobin 10.0 g/dL (12.0-15.0); Immature Granulocytes Count 0.260 X10^3/uL (0.0-0.0); Mean Corp Hgb Conc 31.6 g/dL (32-36); Mean Corpuscular Volume 83.4 fL (81-99); Mean Platelet Vol. 10.8 fl (6.2-12.0); NRBC Flagged by Analyzer 0 % (0-5); Platelet Count 300 K/mm3 (150-450); RBC Distribution Width CV 15.4 % (11.6-14.6); RBC Distribution Width SD 46.5 fl (35.1-43.9); Red Blood Count 3.79 M/mm3 (4.2-5.4); White Blood Count 12.5 K/mm3 (4.4-11.0)
--- NOTE | 2025-05-05 09:00 | PCM.HP.OB ---
HPI - General General Date of Admission: 05/05/25 HPI Narrative NICOLLE SYKES, is a 29 F @ 40 weeks who presents for IOL due to maternal BMI 45. PFSH PFSH Allergy/AdvReac Type Severity Reaction Status Date / Time Penicillins (PCN) Allergy Hives Verified 05/05/25 08:27 Surgical History History of wisdom tooth extraction History of tonsillectomy Social History (Updated 03/30/19 @ 17:04 by Hakeem SAHNI, PA) Smoking Status: Never smoker History Elective abortions Hx Para 0 Spontaneous abortions Hx # Term Pregnancies Ectopic pregnancies Hx # Pregnancies Multiple births # of living children NST FHR Rate Baby A Baseline: 140 Variability:: Moderate Accelerations:: 15 x 15 Decelerations:: None NST Reactive:: Yes FHR Category:: Category I Uterine Activity:: none Vital Signs Vital Signs Vital Signs: 05/05/25 07:49 05/05/25 07:49 05/05/25 07:49 Temperature 97.9 F Temperature Source Temporal Pulse Rate Respiratory Rate 16 Blood Pressure BP Systolic BP Diastolic 05/05/25 07:55 05/05/25 07:55 Temperature Temperature Source Pulse Rate 109 H Respiratory Rate Blood Pressure 132/84 H BP Systolic 132 BP Diastolic 84 Weight Weight: 133 kg Body Mass Index (BMI) 45.9 Physical Exam Narrative closed/50/-3 Labs Labs Labs: Blood Type O POSITIVE Antibody Screen NEGATIVE Hct 31.6 % (37-47) L Hgb 10.0 g/dL (12.0-15.0) L Syphilis Total Ab Nonreactive (Nonreactive) Assessment & Plan (1) 40 weeks gestation of : (2) Anemia affecting : (3) Obesity affecting : PLAN: Plan Admit to L&D Montior FHR/TOCO Epidural if requested for pain Monitor VS Anticipate Cytotec then transcervical abreu and pitocin
[2025-05-05 09:32] LABS: Syphilis Antibodies Nonreactive (Nonreactive)
[2025-05-05] MEDS: 0.9% Saline Lock 10 ML Syringe IV (10:13)
[2025-05-05] MEDS: Oxytocin 15 Units/NS 250ml 15 UNITS/250 ML IV.SOLN 2 UNITS IV (16:30)
--- NOTE | 2025-05-05 16:34 | PCM.PN.BLA ---
Progress Note pt seen at bedside, VE: /-2 , Transcervical abreu placed without difficulty. Will start pitocin. FHR cat 1 reactive.
[2025-05-05] MEDS: 0.9% Normal Saline Single 100 ML IV.SOLN. INTRA-UTER (16:42)
--- NOTE | 2025-05-05 19:19 | PCM.PN.BLA ---
Progress Note pt seen at bedside, resting comfortably- not feeling contractions. VE: 4.5/70/-3 AROM performed and IUPC placed.
[2025-05-05] MEDS: Lactated Ringers 1,000 ML 999 ML IV (20:10)
[2025-05-05] MEDS: fentaNYL-bupivacaine (epidural) 100 ML BAG EPIDURAL (21:05)
[2025-05-05] MEDS: Lactated Ringers 1,000 ML 200 ML IV (21:09)
[2025-05-06] VITALS (49 sets, daily range): BP systolic 124–142; BP diastolic 60–89; PULSE 90–134; RESP 15–19; TEMP 36.2–37.5; O2SAT 93–100; BMI 20250802.0
[2025-05-06] MEDS: fentaNYL-bupivacaine (epidural) 100 ML BAG EPIDURAL (01:29)
[2025-05-06] MEDS: Lactated Ringers 1,000 ML 200 ML IV (02:17)
[2025-05-06] MEDS: Oxytocin 15 Units/NS 250ml 15 UNITS/250 ML IV.SOLN 334 UNITS IV (04:52)
--- NOTE | 2025-05-06 05:07 | EX.PCM.OBVAG ---
Maternal Data Information Final PAZ: 05/05/25 Final PAZ Source: US <20 weeks Gestational age: 40.1 Vaginal Delivery Maternal Presentation Maternal Presentation: Medically Indicated Induction Type of Induction: Pitocin, [place] Bulb, Amniotomy and Cytotec Medical Reason for Induction: Other (maternal obesity ) Vaginal Delivery Information Procedure Performed: Spontaneous Vaginal Delivery Surgeon/Practitioner: Andree Barahona Date of Procedure: 05/06/25 Pre-Procedure Diagnosis: 40 weeks, maternal obesity, anemia in Post-Procedure Diagnosis: same Type of anesthesia: Epidural Estimated Blood Loss: 100 Time of Delivery: 04:50 Findings Description of procedure: Patient progressed to fully dilated. Good maternal pushing efforts delivered the head followed by the anterior and posterior shoulder and the rest the 's body without complication or delay. Infant was placed on mothers chest for immediate skin to skin while delayed cord clamping was performed. Pitocin was started placenta was then delivered intact and without complication. Second-degree perineal laceration was appreciated it was repaired using 2-0 Vicryl and a 3-0 Rapide. 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
[2025-05-06] MEDS: Oxytocin 15 Units/NS 250ml 15 UNITS/250 ML IV.SOLN 83 UNITS IV (05:23)
[2025-05-07 04:53] VITALS: BP 140/91; PULSE 89
[2025-05-07 04:55] VITALS: BP 133/74; PULSE 90; RESP 16; TEMP 36.7; O2SAT 98
--- NOTE | 2025-05-07 09:15 | PCM.PROGNOTE ---
Subjective Subjective patient seen at bedside, doing well. Patient reports good pain control. lochia mild. breast feeding Objective Data Objective Data Vital Signs: Vital Signs Temp Pulse Resp BP Pulse Ox O2 Del Method 98.1 F 90 16 133/74 H 98 Room Air 05/07/25 04:55 05/07/25 04:55 05/07/25 04:55 05/07/25 04:55 05/07/25 04:55 05/07/25 04:55 Oxygen Delivery Method Room Air Weight: 133 kg Body Mass Index (BMI) 45.9 Intake & Output: Intake and Output for Last 24 Hours 05/05/25 05/06/25 05/07/25 23:59 23:59 23:59 Intake Total 2026.33 / 2026.33 1965.84 / 1965.84 Output Total 200 / 200 1150 / 1150 Balance 1826.33 / 1826.33 815.84 / 815.84 Lab / Micro Data 05/05/25 07:50 Physical Exam Narrative Abd: fundus firm. Const alert and oriented x3 General Appearance: cooperative HEENT normocephalic Neck General: normal visual inspection GI soft to palpation and non-distended GI Narrative: Fundus firm Extremity normal to inspection and no calf tenderness Skin no rashes or lesions noted Neuro oriented x3 and CN's II-XII intact bilaterally Psych mental status grossly normal Assessment & Plan Assessment/Plan (1) Obesity affecting : (2) Anemia affecting : (3) Vaginal delivery: PLAN: Plan PPD# 1 , Doing well Routine care pain mgmt ambulation dc home
--- NOTE | 2025-05-07 09:24 | DCINST_ITS ---
Discharge Instructions DC O2, CPAP, BIPAP needs Home O2 Discharge instructions: No Dressing / Incision May resume sexual activity in: 6-8 weeks Dressing / Incision Call your doctor if you observe: Fever of 101 or Higher, Inability to urinate, Using more than 1 pad per hour and Uncontrolled pain Follow Up Care Please Follow Up With: Andree Barahona MD When: 1 week post and again at 6 weeks post . [phone]: if you had PREECLAMPSIA or other Blood pressure concerns in labor you should be seen in 48-72 hours in the office. Test Results: Test results from this visit will be discussed in further detail at your follow- up appointment, if applicable. Discharge Plan Admission Admit Date/Time: 05/05/25 07:46 Attending Provider: Andree Barahona Primary Care Provider: Adrian Downing Discharge Orders/Prescriptions Referrals / Follow Up: Adrian Downing DO [Primary Care Provider] -
--- NOTE | 2025-05-07 09:24 | DCINST_ITS ---
Discharge Instructions DC O2, CPAP, BIPAP needs Home O2 Discharge instructions: No Dressing / Incision May resume sexual activity in: 6-8 weeks Dressing / Incision Call your doctor if you observe: Fever of 101 or Higher, Inability to urinate, Using more than 1 pad per hour and Uncontrolled pain Follow Up Care Please Follow Up With: Andree Barahona MD Test Results: Test results from this visit will be discussed in further detail at your follow- up appointment, if applicable. Discharge Plan Admission Admit Date/Time: 05/05/25 07:46 Attending Provider: Andree Barahona Primary Care Provider: Adrian Downing Discharge Orders/Prescriptions Prescriptions: New acetaminophen 500 mg Tablet 1,000 mg PO Q6H PRN PRN (Reason: Pain 1-10 Or Fever) Qty: 0 0RF ibuprofen 600 mg Tablet 600 mg PO Q6H PRN PRN (Reason: Pain Score 1-10) Qty: 0 0RF Referrals / Follow Up: Adrian Downing DO [Primary Care Provider] - Disposition Disposition (needs filled in before D/C Order can be placed): Home, Self Care
[2025-05-07 11:03] VITALS: BP 144/87; PULSE 103
[2025-05-07 11:05] VITALS: BP 144/92; PULSE 101
[2025-05-07 11:10] VITALS: PULSE 100; O2SAT 98
[2025-05-07 11:11] VITALS: BP 144/87; PULSE 101; RESP 16; TEMP 36.1; O2SAT 98
== END 2025-05-07 13:30 | disposition home or self-care (01) | DRG 807 ==
PROVIDERS: Obstetrics & Gynecology; Admitting Provider Obstetrics & Gynecology; PCP Student in an Organized Health Care Education/Training Program; Visit Provider Obstetrics & Gynecology
DX: O99.214 Obesity complicating childbirth (principal); Z37.0 Single live birth; O99.02 Anemia complicating childbirth; Z3A.40 40 weeks gestation of pregnancy; O70.1 Second degree perineal laceration during delivery
CPT/HCPCS: 59025; 59050; 85025; 86780; 86850; 86900; 86901; 99221; A4216; G0378; J2405